=== PATIENT | female | born 1990 | race Caucasian/White ===

== ENCOUNTER 2018-09-03 18:24 | Emergency (ER) | payer MEDICAID, SELFPAY ==
[2018-09-03 18:28] VITALS: BP 109/71; PULSE 84; RESP 18; TEMP 36.7; O2SAT 98
--- NOTE | 2018-09-03 18:54 | W.ED.GENAD ---
Discharge Plan Disposition Patient Disposition: HOME Condition: Fair Discharge Details Chief Complaint: DentalOral Clinical Impression: Fracture of tooth Primary Care Provider: Vane Jacobson ED Provider: Joselin Huitron Home Meds and New Rx's Prescriptions: New penicillin V potassium 500 mg tablet 500 mg PO QID Qty: 28 RF: 0 Discharge Instructions Instructions: Acute Dental Trauma (ED) Additional Instructions: Encourage hydration. Please keep appointment tomorrow with dentist. Do not chew or apply pressure to the left side of your mouth tonight to try to preserve your temporary filling until being evaluated by the dentist. Please take antibiotics as prescribed. You may discuss this further with the dentist tomorrow. If you develop fever/chills, increased pain or other new/worsening symptoms please seek care urgently once again. You may continue with Tylenol and/or Motrin as needed for discomfort. Referrals: Vane Jacobson [Primary Care Provider] - Discharge Data Discharge Date/Time-TO BE ENTERED AT DEPARTURE: 09/03/18 19:01 Medical Decision Making Patient is 28-year-old female presenting today with chief complaint of left upper dental pain. She reports that she was diagnosed with a crack in the afflicted tooth infection 2 years ago by her dentist. She does report that she sees dentist regularly. However, she reports that yesterday while eating a bagel, that her tooth completely fractured. On exam, the #14 tooth is significant for the anterior half being fractured off. This does appear fairly acute. No surrounding erythema, warmth, drainage. Patient is exquisitely tender with palpation of the tooth. She also has some discomfort over the gumline on the buccal aspect. No pain elicited with palpation of the lingual side. No pain with palpation over the sinuses or face. She is afebrile nontoxic appearing. Patient is status post tubal ligation Patient I discussed treatment options. Given the acuity of the fracture and the patient has follow-up with a dentist tomorrow, I feel that applicant of temporary filling is appropriate and will likely help greatly with her discomfort. Also plan to place place the patient on antibiotics. Patient I discussed the procedure along with risks and benefits and expected procedural steps. She was understanding and wished to proceed. Patient was able to use topical benzocaine to help anesthetize the area. The area was then dried well with gauze, retraction was performed by nursing staff. Temporary filling was then placed by myself and allowed to dry. She tolerated this well and felt improved. I did encourage that she continue with Tylenol and/or ibuprofen as needed for discomfort. We discussed that she needs to keep her appointment tomorrow with the dentist so that this could be replaced. We discussed care of the temporary filling. All of her questions and concerns were addressed and she is in agreement this plan. Discussed when to seek care urgently once again HPI General Mode of arrival: ambulatory. Date/Time Provider Initiated Documentation: 09/03/18 18:27. Limitations to Documentation: no limitations. Information obtained by: patient. History of Present Illness 28 year old F presents to the emergency department with the chief complaint of left upper dental pain, described as severe, Quality is described as aching, and is localized to the face and mouth. Patient started experiencing this day(s) (1) and it has been constant. No relieving factors improve symptom(s), No exacerbating factors reported . Patient notes no other symptoms.; denies cough, fever/chills, headaches, nausea/vomiting, rash and weakness. Patient did receive the following treatments prior to arrival, NSAID and cold therapy Related Data Home Medications Medication Instructions Recorded Confirmed penicillin V potassium 500 mg PO QID #28 tab 09/03/18 Previous Rx's Medication Instructions Recorded penicillin V potassium 500 mg PO QID #28 tab 09/03/18 General Stated Complaint: DentalOral MARK: 4 Review of Systems Constitutional Reports as per HPI, Denies chills, Denies fatigue, Denies fever(s), Denies headache(s) and Denies poor appetite Eyes Denies change in vision and Denies irritation ENT Denies dysphagia, Denies headache(s), Denies lip swelling and Denies odynophagia Cardiovascular Reports as per HPI and Denies chest pain Respiratory Reports as per HPI and Denies cough Gastrointestinal Reports as per HPI, Denies dysphagia, Denies nausea, Denies odynophagia and Denies vomiting Integumentary/Breasts Reports as per HPI, Denies erythema, Denies rash and Denies skin pain Neurologic Denies headache(s) Endocrine Denies fatigue Allergic/Immunologic Denies lip swelling PFS Social History Smoking/Tobacco Use Status: Never Exam Const General: cooperative, healthy appearing, comfortable, no acute distress, well developed and well groomed Nutritional Appearance: average body habitus and well nourished Orientation: alert and awake [facility] Head: normal to inspection, normocephalic and atraumatic Ears: hearing grossly normal bilaterally, external ears normal and TM's normal bilaterally General nose exam: external nose normal and nares normal Face and sinus: normal facial exam, sinuses nontender and face symmetric Mouth: oral mucosae normal, lip normal, tongue normal, oropharynx normal, no muffled voice and no trismus Teeth and gingiva: abnormal dentition (Chaitanya has fractured anterior half of the #14 tooth. No surrounding erythema, warmth or drainage. No facial swelling. She does have discomfort with palpation over the buccal side of the gum line. No discharge), caries and other (no swellin gunder tongue) Throat: posterior oropharynx normal, tonsils normal and uvula midline Eyes General: appearance normal, both eyes and all related structures Neck Neck: normal visual inspection, full ROM, no lymphadenopathy, supple and no anterior neck swelling Resp Effort & Inspection: normal respiratory effort, able to speak in complete sentences and no respiratory distress Auscultation: clear to auscultation bilaterally, no rales, no rhonchi and no wheezes Cardio Rate: regular rate Rhythm: regular rhythm Heart Sounds: S1 normal and S2 normal Skin General skin exam: no rashes or lesions noted Trauma: no lacerations or abrasions Neuro General: alert and awake Cognition: normal cognition Speech: speech normal Gait: normal gait Psych Appearance: grossly normal and well kempt Mental Status: mental status grossly normal Speech and Movement: speech and movement normal Course Vital Signs Temperature 36.7 C 09/03/18 18:28 Pulse 84 09/03/18 18:28 Respiratory Rate 18 09/03/18 18:28 Blood Pressure 109/71 09/03/18 18:28 Pulse Oximetry 98 09/03/18 18:28 Temperature 36.7 C 09/03/18 18:28 Temperature Source Temporal Artery Scan 09/03/18 18:28 Pulse 84 09/03/18 18:28 Respiratory Rate 18 09/03/18 18:28 Respiratory Effort 09/03/18 18:30 Blood Pressure 109/71 09/03/18 18:28 Blood Pressure Position Sitting 09/03/18 18:28 Pulse Oximetry 98 09/03/18 18:28 Oxygen Delivery Method Room Air 09/03/18 18:28 Oxygen Flow Rate 0 09/03/18 18:28 Pain Level 8 09/03/18 18:28
[2018-09-03 19:05] VITALS: BP 112/80; PULSE 80; RESP 18; TEMP 36.8; O2SAT 99
--- NOTE | 2018-09-03 19:08 | ED.GENADUL_ITS ---
Discharge Plan Disposition Patient Disposition: HOME Condition: Fair Discharge Details Chief Complaint: DentalOral Clinical Impression: Fracture of tooth Primary Care Provider: Vane Jacobson ED Provider: Joselin Huitron Home Meds and New Rx's Prescriptions: New penicillin V potassium 500 mg tablet 500 mg PO QID Qty: 28 RF: 0 Discharge Instructions Instructions: Acute Dental Trauma (ED) Additional Instructions: Encourage hydration. Please keep appointment tomorrow with dentist. Do not chew or apply pressure to the left side of your mouth tonight to try to preserve your temporary filling until being evaluated by the dentist. Please take antibiotics as prescribed. You may discuss this further with the dentist tomorrow. If you develop fever/chills, increased pain or other new/worsening symptoms please seek care urgently once again. You may continue with Tylenol and /or Motrin as needed for discomfort. Referrals: Vane Jacobson [Primary Care Provider] - Discharge Data Discharge Date/Time-TO BE ENTERED AT DEPARTURE: 09/03/18 19:01 Medical Decision Making Patient is 28-year-old female presenting today with chief complaint of left upper dental pain. She reports that she was diagnosed with a crack in the afflicted tooth infection 2 years ago by her dentist. She does report that she sees dentist regularly. However, she reports that yesterday while eating a bagel, that her tooth completely fractured. On exam, the #14 tooth is significant for the anterior half being fractured off. This does appear fairly acute. No surrounding erythema, warmth, drainage. Patient is exquisitely tender with palpation of the tooth. She also has some discomfort over the gumline on the buccal aspect. No pain elicited with palpation of the lingual side. No pain with palpation over the sinuses or face. She is afebrile nontoxic appearing. Patient is status post tubal ligation Patient I discussed treatment options. Given the acuity of the fracture and the patient has follow-up with a dentist tomorrow, I feel that applicant of temporary filling is appropriate and will likely help greatly with her discomfort. Also plan to place place the patient on antibiotics. Patient I discussed the procedure along with risks and benefits and expected procedural steps. She was understanding and wished to proceed. Patient was able to use topical benzocaine to help anesthetize the area. The area was then dried well with gauze, retraction was performed by nursing staff. Temporary filling was then placed by myself and allowed to dry. She tolerated this well and felt improved. I did encourage that she continue with Tylenol and/or ibuprofen as needed for discomfort. We discussed that she needs to keep her appointment tomorrow with the dentist so that this could be replaced. We discussed care of the temporary filling. All of her questions and concerns were addressed and she is in agreement this plan. Discussed when to seek care urgently once again HPI General Mode of arrival: ambulatory . Date/Time Provider Initiated Documentation: 09/03/18 18:27 . Limitations to Documentation: no limitations . Information obtained by: patient . History of Present Illness 28 year old F presents to the emergency department with the chief complaint of left upper dental pain, described as severe, Quality is described as aching , and is localized to the face and mouth. Patient started experiencing this day(s) (1) and it has been constant. No relieving factors improve symptom(s) , No exacerbating factors reported . Patient notes no other symptoms.; denies cough, fever/chills, headaches, nausea/vomiting, rash and weakness. Patient did receive the following treatments prior to arrival, NSAID and cold therapy Related Data Home Medications Medication Instructions Recorded Confirmed penicillin V potassium 500 mg PO QID #28 tab 09/03/18 Previous Rx's Medication Instructions Recorded penicillin V potassium 500 mg PO QID #28 tab 09/03/18 General Stated Complaint: DentalOral MARK: 4 Review of Systems Constitutional Reports as per HPI, Denies chills, Denies fatigue, Denies fever(s), Denies headache(s) and Denies poor appetite Eyes Denies change in vision and Denies irritation ENT Denies dysphagia, Denies headache(s), Denies lip swelling and Denies odynophagia Cardiovascular Reports as per HPI and Denies chest pain Respiratory Reports as per HPI and Denies cough Gastrointestinal Reports as per HPI, Denies dysphagia, Denies nausea, Denies odynophagia and Denies vomiting Integumentary/Breasts Reports as per HPI, Denies erythema, Denies rash and Denies skin pain Neurologic Denies headache(s) Endocrine Denies fatigue Allergic/Immunologic Denies lip swelling PFS Social History Smoking/Tobacco Use Status: Never Exam Const General: cooperative, healthy appearing, comfortable, no acute distress, well developed and well groomed Nutritional Appearance: average body habitus and well nourished Orientation: alert and awake [facility] Head: normal to inspection, normocephalic and atraumatic Ears: hearing grossly normal bilaterally, external ears normal and TM's normal bilaterally General nose exam: external nose normal and nares normal Face and sinus: normal facial exam, sinuses nontender and face symmetric Mouth: oral mucosae normal, lip normal, tongue normal, oropharynx normal, no muffled voice and no trismus Teeth and gingiva: abnormal dentition (Chaitanya has fractured anterior half of the #14 tooth. No surrounding erythema, warmth or drainage. No facial swelling. She does have discomfort with palpation over the buccal side of the gum line. No discharge), caries and other (no swellin gunder tongue) Throat: posterior oropharynx normal, tonsils normal and uvula midline Eyes General: appearance normal, both eyes and all related structures Neck Neck: normal visual inspection, full ROM, no lymphadenopathy, supple and no anterior neck swelling Resp Effort & Inspection: normal respiratory effort, able to speak in complete sentences and no respiratory distress Auscultation: clear to auscultation bilaterally, no rales, no rhonchi and no wheezes Cardio Rate: regular rate Rhythm: regular rhythm Heart Sounds: S1 normal and S2 normal Skin General skin exam: no rashes or lesions noted Trauma: no lacerations or abrasions Neuro General: alert and awake Cognition: normal cognition Speech: speech normal Gait: normal gait Psych Appearance: grossly normal and well kempt Mental Status: mental status grossly normal Speech and Movement: speech and movement normal Course Vital Signs Temperature 36.7 C 09/03/18 18:28 Pulse 84 09/03/18 18:28 Respiratory Rate 18 09/03/18 18:28 Blood Pressure 109/71 09/03/18 18:28 Pulse Oximetry 98 09/03/18 18:28 Temperature 36.7 C 09/03/18 18:28 Temperature Source Temporal Artery Scan 09/03/18 18:28 Pulse 84 09/03/18 18:28 Respiratory Rate 18 09/03/18 18:28 Respiratory Effort 09/03/18 18:30 Blood Pressure 109/71 09/03/18 18:28 Blood Pressure Position Sitting 09/03/18 18:28 Pulse Oximetry 98 09/03/18 18:28 Oxygen Delivery Method Room Air 09/03/18 18:28 Oxygen Flow Rate 0 09/03/18 18:28 Pain Level 8 09/03/18 18:28
== END 2018-09-03 19:01 | disposition home or self-care (01) ==
LOC: ER 19:05
PROVIDERS: Emergency Provider Physician Assistant
DX: K03.81 Cracked tooth (principal)
CPT/HCPCS: 99283

== ENCOUNTER 2018-12-02 11:49 | Emergency (ER) | payer MEDICAID, SELFPAY ==
[2018-12-02 12:33] VITALS: BP 140/86; PULSE 94; RESP 18; TEMP 36.6; O2SAT 99
--- NOTE | 2018-12-02 13:50 | DI.US_ITS ---
SYMPTOM/DIAGNOSIS: RUQ PAIN ABDOMEN ULTRASOUND: There are no prior comparison exams. The liver is mildly enlarged and shows fatty infiltration. No focal liver lesions or biliary dilatation is seen. The gallbladder is contracted. The patient denies eating or drinking today. No gallstones are identified. The patient was tender while scanning in the right upper quadrant. The tail of the pancreas is obscured by bowel gas. The kidneys, spleen and aorta are unremarkable. IMPRESSION: Contracted gallbladder. Mildly enlarged fatty liver.
[2018-12-02] MEDS: Ondansetron O.D.T. 4 MG TABEF PO (15:00)
[2018-12-02 15:18] LABS: Bilirubin Negative (Negative); Blood Negative (Negative); Clarity Clear; Glucose Negative (Negative); Ketones 15 mg/dL (Negative); Leukocyte Esterase Negative (Negative); Nitrite Negative (Negative); Specific Gravity 1.025 (1.005-1.025); Urobilinogen 0.2 EU/dL (Up TO 0.2)
[2018-12-02 15:20] LABS: Abs Immature Grans 0.01 k/cumm (0.0-0.09); Absolute Basophil Count 0.01 k/cumm (0.0-0.2); Absolute Eosinophil Count 0.04 k/cumm (0.0-0.7); Absolute Lymphocyte Count 1.68 k/cumm (1.2-3.4); Absolute Monocyte Count 0.37 k/cumm (0.11-0.7); Absolute Neutrophil Count 4.27 k/cumm (1.2-6.7); Basophils % 0.2; Eosinophils % 0.6; HCT 39.3 % (36.0-46.0); HGB 12.8 g/dL (12.0-15.5); Immature Grans % 0.2; Lymphocytes % 26.3; Mean Corp. HGB Concentration 32.6 g/dL (32.0-36.0); Mean Corpuscular Hemoglobin 30.8 pg (27.0-33.0); Mean Corpuscular Volume 94.7 fL (80-95); Mean Platelet Volume 10.7 fL (8.0-11.0); Monocytes % 5.8; Neutrophils % 66.9; Platelet Count 215 x1000/uL (130-400); RBC 4.15 m/cumm (4.00-5.20); RBC Distribution Width 13.1 % (11.7-14.6); White Blood Cell Count 6.38 k/cumm (4.4-10.8)
[2018-12-02] MEDS: Ibuprofen 600 MG TAB PO (15:25)
[2018-12-02 15:48] LABS: ALT 150 U/L (12-78); AST 65 U/L (15-37); Albumin 3.7 g/dL (3.4-5.0); Alkaline Phosphatase 58 U/L (46-116); BUN 17 mg/dL (7-18); Bilirubin, Total 0.3 mg/dL (0.2-1.0); CREATININE 0.76 mg/dL (0.55-1.02); Calcium 9.4 mg/dL (8.5-10.1); Chloride 105 mmol/L (98-107); Glucose 79 mg/dL (70-100); Lipase 121 U/L (73-393); Potassium 3.7 mmol/L (3.5-5.1); Sodium 140 mmol/L (136-145); Total Protein 7.8 g/dL (6.4-8.2)
[2018-12-02] MEDS: Normal Saline 1,000 ML 1000 ML IV (16:00)
[2018-12-02] MEDS: MORPHine 10 MG/ML VIAL 4 MG IVP (16:02)
--- NOTE | 2018-12-02 16:07 | ED.GENADUL_ITS ---
Discharge Plan Disposition Patient Disposition: HOME Condition: Good Discharge Details Chief Complaint: Abd Prob Clinical Impression: Abdominal pain, Colicky right upper quadrant pain Reason For Visit: ? gallbladder Primary Care Provider: Vane Jacobson ED Provider: Arcadio Breen Home Meds and New Rx's Prescriptions: New acetaminophen [Mapap Extra Strength] 500 MG tablet 1,000 mg PO Q6H 5 Days Qty: 60 RF: 0 ranitidine HCl [Zantac] 150 MG tablet 150 mg PO BID Qty: 100 RF: 0 ibuprofen [Motrin IB] 200 MG tablet 600 mg PO Q6H 5 Days Qty: 60 RF: 0 pantoprazole [Protonix] 40 mg tablet,delayed release (DR/EC) 40 mg PO BID Qty: 60 RF: 0 ondansetron HCl [Zofran] 4 mg tablet 4 mg PO QID PRN (Reason: nausea and vomiting) Qty: 14 RF: 0 hydrocodone-acetaminophen [[place]] 7.5-325 mg tablet 1 tab PO Q6H Qty: 4 RF: 0 No Action penicillin V potassium 500 mg tablet 500 mg PO QID Qty: 28 RF: 0 Discharge Instructions Instructions: Abdominal Pain (ED) Additional Instructions: Please avoid any fatty foods, greasy foods, dairy products, spicy foods. Please stick with an easy diet of applesauce, water, and crackers. We have scheduled a HIDA scan for you, please follow-up as soon as you are contacted for this. As soon as you are done that contact the surgeon's office, for a prompt follow-up appointment with them for the HIDA scan results. If you notice any worsening of your symptoms, or any new symptoms such as vomiting, diarrhea, fever, chills, shortness of breath, chest pain, numbness, weakness, or fainting , please return immediately to the emergency department for reevaluation. Please follow up with your primary care provider as soon as possible for reassessment and reevaluation. As always, it was a pleasure participating in your medical care today. Referrals: Precious Bear MD [ [facility] STAFF PHYSICIAN] - Discharge Data Discharge Date/Time-TO BE ENTERED AT DEPARTURE: 12/02/18 18:22 Medical Decision Making <Enio Casper NP - Last Filed: 12/05/18 22:29> Patient presenting the emergency department for chief complaint of right upper quadrant pain. She states that this started approximately 5 days ago and has had some intermittent subjective fevers along with it. She does state that pain drastically worsens approximately 20-30 minutes after eating food intake. Plan to check labs and notes physical exam shows positive Enrique sign so plan to do abdominal ultrasound. Pending results patient given Zofran and ibuprofen After review of labs that show some elevation of AST and ALT otherwise normal bilirubin and otherwise nondiagnostic labs and review of ultrasound imaging with radiologist that shows contracted gallbladder with no acute cholecystitis patient was reassessed. Patient having significant worsening of pain and stating sharp anali waves of discomfort in this area. Liter of normal saline and morphine was prescribed and surgery was contacted. Spoke with Dr. Bear whom recommended patient get ketorolac IV along with GI cocktail for possible gastritis otherwise recommended against CT imaging at this time but requested patient follow-up on outpatient basis once pain control is achieved. Pending reassessment of abdomen after pain medication patient was signed out to Dr. Beka Breen. <Arcadio Breen DO - Last Filed: 12/02/18 17:53> The case was signed out to me by my colleague Kalen Casper. On repeat assessment after pain medication the patient still had mild to moderate pain in her right upper quadrant on palpation. I did contact Dr. Bear and discussed the case with her personally, she did come down and assessed the patient with me, we did review the patient's labs and vital signs. On her personal reassessment she does not feel that the patient requires any acute surgical intervention. She does recommend outpatient HIDA scan, as well as diet modification. We will give antacids for home use. With no significant lab abnormalities for her bilirubin, white count, no fever or tachycardia, and no signs of an acute surgical abdomen with surgical review, we will discharge the patient home. I had a long discussion with her regarding red flags which return she understands. I have extensively reviewed the treatment plan and discharge instructions with the patient. I have addressed all patient concerns at this time. The patient was made aware of what symptoms to monitor for that would warrant a return to the emergency department. Discussed the plan with the patient, they demonstrate verbal understanding and agreement with our assessment and plan at this time. ABDOMEN ULTRASOUND: There are no prior comparison exams. The liver is mildly enlarged and shows fatty infiltration. No focal liver lesions or biliary dilatation is seen. The gallbladder is contracted. The patient denies eating or drinking today. No gallstones are identified. The patient was tender while scanning in the right upper quadrant. The tail of the pancreas is obscured by bowel gas. The k idneys, spleen and aorta are unremarkable. IMPRESSION: Contracted gallbladder. Mildly enlarged fatty liver. HPI <Enio Casper NP - Last Filed: 12/05/18 22:29> General Mode of arrival: ambulatory . Date/Time Provider Initiated Documentation: 12/02/18 12:40 . Limitations to Documentation: no limitations . Information obtained by: patient and RN notes reviewed . History of Present Illness 28 year old F presents to the emergency department with the chief complaint of RUQ abd pain, described as moderate, with intensity rated at 7. Quality is described as sharp, and is localized to the abdomen (Right upper quadrant). Patient started experiencing this day(s) (5) and it has been constant. No relieving factors improve symptom(s), Eating worsens symptoms . Patient did receive the following treatments prior to arrival, none Related Data Home Medications Medication Instructions Recorded Confirmed penicillin V potassium 500 mg PO QID #28 tab 09/03/18 acetaminophen [Mapap Extra 1,000 mg PO Q6H 5 Days #60 tab 12/02/18 Strength] hydrocodone-acetaminophen [[place]] 1 tab PO Q6H #4 tab 12/02/18 ibuprofen [Motrin Ib] 600 mg PO Q6H 5 Days #60 tab 12/02/18 ondansetron HCl [Zofran] 4 mg PO QID PRN #14 tab 12/02/18 pantoprazole [Protonix] 40 mg PO BID #60 tab 12/02/18 ranitidine HCl [Zantac] 150 mg PO BID #100 tab 12/02/18 Previous Rx's Medication Instructions Recorded penicillin V potassium 500 mg PO QID #28 tab 09/03/18 acetaminophen [Mapap Extra 1,000 mg PO Q6H 5 Days #60 tab 12/02/18 Strength] hydrocodone-acetaminophen [[place]] 1 tab PO Q6H #4 tab 12/02/18 ibuprofen [Motrin Ib] 600 mg PO Q6H 5 Days #60 tab 12/02/18 ondansetron HCl [Zofran] 4 mg PO QID PRN #14 tab 12/02/18 pantoprazole [Protonix] 40 mg PO BID #60 tab 12/02/18 ranitidine HCl [Zantac] 150 mg PO BID #100 tab 12/02/18 General Stated Complaint: Abd Prob MARK: 3 Review of Systems <Enio Casper NP - Last Filed: 12/05/18 22:29> Constitutional Denies chills and Reports poor appetite Cardiovascular Denies chest pain and Denies dyspnea Respiratory Denies cough and Denies dyspnea Gastrointestinal Reports as per HPI, Reports abdominal pain, Denies melena, Denies change in bowel habits, Denies constipation, Denies diarrhea, Reports nausea and Reports v omiting Genitourinary Denies hematuria, Denies urinary incontinence, Denies urinary hesitancy and Denies urinary urgency Integumentary/Breasts Denies rash PFSH <Enio Casper NP - Last Filed: 12/05/18 22:29> Social History Smoking and Tabacco status: Never alcohol intake: current alcohol intake frequency: a few times a month substance use type: marijuana Exam <Enio Casper NP - Last Filed: 12/05/18 22:29> Const General: cooperative Orientation: alert, awake and oriented x3 Resp Effort & Inspection: normal respiratory effort and able to speak in complete sentences Auscultation: clear to auscultation bilaterally Cardio Rate: regular rate Rhythm: regular rhythm Heart Sounds: S1 normal and S2 normal GI Palpation: soft, no hepatosplenomegaly, not firm, no guarding, no masses, no pulsatile masses, not rigid, no splenomegaly and tender in the RUQ and Enrique's sign positive; not at McBurney's point, psoas sign negative, with no rebound tenderness and Rovsing's sign negative Auscultation: hypoactive bowel sounds Back/Spine/Pelvis Back: no CVA tenderness Neuro General: alert, awake, oriented x3, gait normal and moves all extremities Course <Enio Casper NP - Last Filed: 12/05/18 22:29> Vital Signs Temperature 36.6 C 12/02/18 12:33 Pulse 94 H 12/02/18 12:33 Respiratory Rate 18 12/02/18 12:33 Blood Pressure 140/86 12/02/18 12:33 Pulse Oximetry 99 02/04/19 12:33 Temperature 36.6 C 12/02/18 12:33 Temperature Source Temporal Artery Scan 12/02/18 12:33 Pulse 94 H 12/02/18 12:33 Respiratory Rate 18 12/02/18 12:33 Respiratory Effort 12/02/18 12:36 Blood Pressure 140/86 12/02/18 12:33 Pulse Oximetry 99 12/02/18 12:33 Oxygen Delivery Method Room Air 12/02/18 12:33 Oxygen Flow Rate 0 12/02/18 12:33 End Tidal Co2 5 12/02/18 12:33 Pain Level 7 12/02/18 16:02 Lab/Test Results Lab/Test Results: Laboratory Tests Range/Units 12/02/18 12/02/18 12/02/18 15:07 15:15 15:15 WBC (4.4-10.8) k/cumm 6.38 RBC (4.00-5.20) m/cumm 4.15 Hgb (12.0-15.5) g/dL 12.8 Hct (36.0-46.0) % 39.3 MCV (80-95) fL 94.7 MCH (27.0-33.0) pg 30.8 MCHC (32.0-36.0) g/dL 32.6 RDW (11.7-14.6) % 13.1 Plt Count (130-400) x1000/uL 215 MPV (8.0-11.0) fL 10.7 Immature Gran % 0.2 Neutrophils % 66.9 Lymphocytes % 26.3 Monocytes % 5.8 Eosinophils % 0.6 Basophils % 0.2 Absolute Neutrophils (1.2-6.7) k/cumm 4.27 Absolute Lymphocytes (1.2-3.4) k/cumm 1.68 Absolute Monocytes (0.11-0.7) k/cumm 0.37 Absolute Eosinophils (0.0-0.7) k/cumm 0.04 Absolute Basophils (0.0-0.2) k/cumm 0.01 Sodium (136-145) mmol/L 140 Potassium (3.5-5.1) mmol/L 3.7 Chloride (98-107) mmol/L 105 Carbon Dioxide (21.0-32.0) mmol/L 25.0 Anion Gap (3-11) mmol/L 10.0 BUN (7-18) mg/dL 17 Creatinine (0.55-1.02) mg/dL 0.76 Estimated GFR/1.73 m2 (mL/min/1.73m2) >= 60.00 Glucose (70-100) mg/dL 79 Calcium (8.5-10.1) mg/dL 9.4 Total Bilirubin (0.2-1.0) mg/dL 0.3 AST (15-37) U/L 65 H ALT (12-78) U/L 150 H Alkaline Phosphatase (46-116) U/L 58 Total Protein (6.4-8.2) g/dL 7.8 Albumin (3.4-5.0) g/dL 3.7 Lipase (73-393) U/L 121 Urine Color (Yellow) Yellow Urine Clarity Clear Urine pH (5-8) 6.0 Ur Specific [place] (1.005-1.025) 1.025 Urine Protein (Negative) mg/dL Negative Urine Ketones (Negative) mg/dL 15 H Urine Blood (Negative) Negative Urine Nitrite (Negative) Negative Urine Bilirubin (Negative) Negative Urine Urobilinogen (Up TO 0.2) EU/dL 0.2 Ur Leukocyte Esterase (Negative) Negative Urine Glucose (Negative) mg/dL Negative POC- Test(urine) Negative
[2018-12-02] MEDS: Ketorolac 30 MG/ML VIAL IVP (16:23)
--- NOTE | 2018-12-02 17:37 | SCONE_ITS ---
Date of service: 12/02/18 Time of Service: 17:33 Assessment and Plan (1) Abdominal pain: Current visit: Yes Status: Acute A\\ Abdominal pain, RUQ and right flank. No rebound or guarding. When distracted her pain is less. She is not tachycardic or hypertensive. US showed a contracted Gallbladder. NO pericholecystic fluid, CBD normal. They did see a fatty liver which is most likely why her AST and ALT are slightly elevated. P\\ HIDA scan as outpatient Omeprazole daily in case that there is some gastritis Follow up with me in the office with HIDA scan results Low fat, not spicy foods. Recommend bland foods. Tylenol and ibuprofen for pain. Make sure to take ibuprofen with food. Qualifiers: Abdominal location: upper abdomen, unspecified Qualified Code(s): R10.10 - Upper abdominal pain, unspecified History of Present Illness Chief Complaint: Abdominal pain and nausea Narrative: Ms Castillo is a 28 year old female who has been having upper abdominal pain since 11/28. She has had some nausea, no vomiting. No fevers. She states that food makes it worse. But she has constant pain. She denies any diarrhea. She usually is more on the constipated side and has to take Miralax once in a while. Her Abdominal US showed a fatty liver, and a contracted Gallbladder with out stones or sludge. CBC was normal. CMP revealed slight increase in her ALT and AST. Alk phos and bilirubin are normal as is her lipase. Urine showed ketones otherwise no abnormalities. Patient was given Toradol, viscous lidocaine and morphine all at the same time. One of these made her feel better. Consults Consult date: 12/02/18 Requesting physician: Arcadio Breen Review of Systems Constitutional Denies body ache(s), Denies fever(s), Denies headache(s), Denies night sweats and Denies weight loss ENT Denies dizziness and Denies headache(s) Cardiovascular Denies chest pain, Denies chest pain at rest, Denies rapid heart rate, Denies palpitations, Denies dyspnea and Denies dyspnea on exertion Respiratory Denies chest congestion, Denies cough, Denies dyspnea and Denies dyspnea on exertion Gastrointestinal Reports as per HPI Genitourinary Reports system reviewed and no additional complaints, except as docu Musculoskeletal Reports back pain (chronic per patient) Neurologic Denies dizziness and Denies headache(s) Endocrine Denies cold intolerance, Denies heat intolerance and Denies palpitations PFSH Social History Smoking/Tobacco Use Status: Never alcohol intake: current alcohol intake frequency: a few times a month substance use type: marijuana Exam Const General: cooperative, healthy appearing, comfortable and no acute distress Nutritional Appearance: obese Resp Effort & Inspection: normal respiratory effort Auscultation: clear to auscultation bilaterally Cardio Rate: regular rate Rhythm: regular rhythm Heart Sounds: no gallops and no murmurs GI Inspection: normal to inspection Palpation: soft, no hepatosplenomegaly and tender in the epigastrum, in the RUQ and other (Right flank) Auscultation: normal bowel sounds Results Last Vital Signs Temp 97.9 F 12/02/18 12:33 Pulse 94 H 12/02/18 12:33 Resp 18 12/02/18 12:33 BP 140/86 12/02/18 12:33 Pulse Ox 99 12/02/18 12:33 Labs : 12/02/18 15:15 12/02/18 15:15 Laboratory Results - last 24 hr 12/02/18 12/02/18 12/02/18 15:07 15:15 15:15 WBC 6.38 RBC 4.15 Hgb 12.8 Hct 39.3 MCV 94.7 MCH 30.8 MCHC 32.6 RDW 13.1 Plt Count 215 MPV 10.7 Immature Gran % 0.2 Neutrophils % 66.9 Lymphocytes % 26.3 Monocytes % 5.8 Eosinophils % 0.6 Basophils % 0.2 Absolute Neutrophils 4.27 Absolute Lymphocytes 1.68 Absolute Monocytes 0.37 Absolute Eosinophils 0.04 Absolute Basophils 0.01 Sodium 140 Potassium 3.7 Chloride 105 Carbon Dioxide 25.0 Anion Gap 10.0 BUN 17 Creatinine 0.76 Estimated GFR/1.73 m2 >= 60.00 Glucose 79 Calcium 9.4 Total Bilirubin 0.3 AST 65 H ALT 150 H Alkaline Phosphatase 58 Total Protein 7.8 Albumin 3.7 Lipase 121 Urine Color Yellow Urine Clarity Clear Urine pH 6.0 Ur Specific [place] 1.025 Urine Protein Negative Urine Ketones 15 H Urine Blood Negative Urine Nitrite Negative Urine Bilirubin Negative Urine Urobilinogen 0.2 Ur Leukocyte Esterase Negative Urine Glucose Negative
[2018-12-02 18:14] VITALS: BP 130/79; PULSE 72; RESP 18; TEMP 36.8; O2SAT 98
[2018-12-02 18:23] VITALS: BP 130/79; PULSE 72; RESP 18; TEMP 36.8; O2SAT 98
--- NOTE | 2018-12-03 07:56 | PDOC.ERCMPRO ---
Care Management Progress Note 12/03-Dr. Breen requested assistance with a general surgery f/u after HIDA Scan (referral has been sent to xray). Dr. Bear consulted in Emergency Department. Referral faxed to general surgery this am.
== END 2018-12-02 18:22 | disposition home or self-care (01) ==
PROVIDERS: Nurse Practitioner Family; Emergency Provider Student in an Organized Health Care Education/Training Program
DX: R10.11 Right upper quadrant pain (principal)
CPT/HCPCS: 36415; 80053; 81025; 83690; 96361; 96374; 96375; 99253; 99284; 76700; 81003; 85025; J1885; J2270

== ENCOUNTER 2018-12-05 09:33 | Outpatient (CLI) | payer MEDICAID, SELFPAY ==
--- NOTE | 2018-12-05 10:00 | DI.NM_ITS ---
SYMPTOMS/DIAGNOSIS: RUQ PAIN, ? GALLBLADDER PATHOLOGY HEPATOBILIARY SCAN: Hepatobiliary scan was performed according to the usual protocol with intravenous infusion of 4.7 millicuries of Technetium 99 labeled Mebrofenin. There is prompt homogeneous hepatic uptake. There is prompt uptake in the gallbladder, bile ducts and small intestine. CONCLUSION: Negative hepatobiliary scan.
== END 2018-12-05 09:53 ==
PROVIDERS: Visit Provider Student in an Organized Health Care Education/Training Program
DX: R10.11 Right upper quadrant pain (principal)
CPT/HCPCS: 78227

== ENCOUNTER 2019-01-08 09:13 | Emergency (ER) | payer MEDICAID, SELFPAY ==
[2019-01-08] VITALS (33 sets, daily range): BP systolic 118–143; BP diastolic 68–98; PULSE 58–106; RESP 10–38; TEMP 36.6–37; O2SAT 95–100
[2019-01-08] MEDS: FAMOTIDINE 20 MG/50 ML BAG 200 MG (09:46)
[2019-01-08] MEDS: methylPREDNISolone SUCC 125 MG VIAL (09:46)
[2019-01-08] MEDS: Albuterol 2.5 MG/3 ML INH SOLN VIAL (09:46)
[2019-01-08] MEDS: diphenhydrAMINE 50 MG/ML VIAL (09:47)
--- NOTE | 2019-01-08 09:54 | W.ED.GENAD ---
Discharge Plan Disposition Patient Disposition: HOME Condition: Stable Discharge Details Chief Complaint: Allergic Clinical Impression: Rash, Allergic reaction Primary Care Provider: Vane Jacobson ED Provider: Tashia Alonzo Home Meds and New Rx's Prescriptions: New prednisone 20 mg tablet 40 mg PO DAILY Qty: 8 RF: 0 epinephrine 0.3 mg/0.3 mL syringe 0.3 mg IM ONCE Qty: 2 RF: 0 Continued acetaminophen 500 mg Capsule 500 mg PO PRN PRNRF: 0 Discontinued ranitidine HCl [Zantac] 150 MG tablet 150 mg PO BID Qty: 100 RF: 0 pantoprazole [Protonix] 40 mg tablet,delayed release (DR/EC) 40 mg PO BID Qty: 60 RF: 0 ondansetron HCl [Zofran] 4 mg tablet 4 mg PO QID PRN (Reason: nausea and vomiting) Qty: 14 RF: 0 Discharge Instructions Instructions: Prednisone (By mouth), Epinephrine (Injection), Acute Rash (ED), General Allergic Reaction (ED) Additional Instructions: Please return immediately to the emergency department if you develop any new or worsening symptoms or if you become otherwise concerned. It is extremely important that you make an appointment to be seen as soon as possible by an analytics specialist and also by your primary care doctor in follow-up for this visit. Referrals: Vane Jacobson [Primary Care Provider] - Discharge Data Discharge Date/Time-TO BE ENTERED AT DEPARTURE: 01/08/19 12:38 Medical Decision Making Teresa Estrella is a 28 y/o woman with history of WPW, GERD, chronic hypoglycemia who presents to the emergency department with upper extremity redness, itching, and swelling along with mild shortness of breath began 20-30 minutes prior to arrival with no known inciting factors. On exam patient is well and nontoxic appearing but mildly anxious. Her work of breathing is normal and lungs are clear. Exam of the oropharynx is normal. No acute impending airway compromise. Concern for possible allergic reaction. Exam/history is not consistent with infectious process at this time. Plan for IV fluid hydration, IV Benadryl, IV Pepcid, IV Solu-Medrol, albuterol. Will hold epi use for any worsening symptoms. Plan for telemetry. Patient had quick improvement in her symptoms after Benadryl and other treatments. On reevaluation patient reports complete resolution of all of her symptoms. At this time, the only exposure that she can think of that she had this morning was to her laundry, which included her boyfriend's clothing which may have had different substances on it from his work. Plan for patient to have her boyfriend rewash all laundry that may be contaminated. Plan for steroid burst, and Rx EpiPen. Patient reports that she has never had WPW issues or tachycardia during exertion, so at this time benefit of EpiPen for mod-severe allergic reaction outweighs risk. Encouraged patient to see analytics specialist in follow-up as soon as possible, given unknown antigen for presumed allergic reaction today. I had a lengthy discussion with the patient regarding EpiPen precautions and use, return to emergency department precautions, home care, and importance of outpatient follow-up with her analytics specialist and PCP. Patient verbalizes understanding of the plan and is amenable. All questions were answered. Medical Records Medical records reviewed: Yes I reviewed the patient's medical records. ECG Data Attestation: I personally reviewed and interpreted this ECG (s) as follows: Interpretation: EKG obtained from triage. Sinus rhythm at 77 with normal axis, T wave inversion V1 V2 consistent with persistent juvenile T waves, no acute ischemic process HPI General Mode of arrival: ambulatory. Date/Time Provider Initiated Documentation: 01/08/19 09:54. Limitations to Documentation: no limitations. Information obtained by: patient. HPI Narrative: Teresa Estrella is a 28-year-old woman with history of GERD, WPW, chronic hypoglycemia presenting to the emergency department with rash, swelling. Patient reports that 20-30 minutes prior to arrival, she was getting ready for work in her bedroom when she noticed that her arms seemed itchy and felt tight. She noticed that her arms were red, and she felt mildly short of breath. Patient reports that she took care of her animals which include cats, chickens and dogs as usual this morning. She has not eaten breakfast or had any other ingestion, exposure. Patient reports that she has vomiting with codeine but has no other known allergies. Never had a similar reaction in the past. Patient reports that she was previously in her usual state of health, no recent illnesses, has been eating and drinking as usual. No [id number] medications recently. Related Data Home Medications Medication Instructions Recorded Confirmed acetaminophen 500 mg PO PRN PRN 12/12/18 epinephrine 0.3 mg IM ONCE #2 each 01/08/19 prednisone 40 mg PO DAILY #8 tab 01/08/19 Previous Rx's Medication Instructions Recorded epinephrine 0.3 mg IM ONCE #2 each 01/08/19 prednisone 40 mg PO DAILY #8 tab 01/08/19 Allergies Allergy/AdvReac Type Severity Reaction Status Date / Time codeine AdvReac Intermediate vomitting Verified 12/06/18 10:58 General Stated Complaint: Allergic MARK: 2 Review of Systems Review of Systems Constitutional: denies fevers Eyes: denies eye pain ENT: denies facial pain, dental pain, sore throat Cardiovascular: denies chest pain Respiratory: denies cough, reports mild shortness of breath GI: denies abdominal pain, vomiting, diarrhea : denies flank pain MSK: denies back pain, neck pain, arthralgias, myalgias Skin: Reports rash, swelling of the arms Neuro: denies headaches, numbness, weakness PFSH Medical History Upper abdominal pain of unknown etiology (Acute) Hypoglycemia (Chronic) Social History Smoking/Tobacco Use Status: Current every day Alcohol Intake: current Alcohol Intake frequency: a few times a month Drug use: Never Substance use type: marijuana Household members: family Do you feel safe in your relationship?: Yes Exam Narrative Exam Narrative: Constitutional: well and [id number], pleasant but somewhat anxious this, conversing normally HENT: head atraumatic/normocephalic/normal inspection, mucous membranes moist, no edema of the oropharynx or lips Eyes: conjunctiva normal, sclera normal, pupils 3mm b/l Neck: no stridor, normal ROM, trachea midline Chest: normal inspection Resp: normal work of breathing, LCTAB Cardio: normal rate, normal rhythm, no murmur appreciated GI: abdomen soft, non-tender, non-distended Back: normal inspection, no rash Skin: warm, dry, normal color, uniform erythema bilateral arms from hands shoulders with mild nonpitting edema bilateral upper extremities and same distribution as color change Neuro: alert, not altered, grossly non-focal, normal tone Psych: normal mood, normal affect, normal behavior Course Vital Signs Temperature 36.6 C 01/08/19 09:38 Pulse 85 01/08/19 09:38 Respiratory Rate 16 01/08/19 09:38 Blood Pressure 137/98 H 01/08/19 09:38 Pulse Oximetry 100 01/08/19 09:38 Temperature 36.6 C 01/08/19 09:38 Temperature Source Skin 01/08/19 09:38 Pulse 85 01/08/19 09:38 Respiratory Rate 16 01/08/19 09:38 Respiratory Effort 01/08/19 09:42 Blood Pressure 137/98 H 01/08/19 09:38 Blood Pressure Position Sitting 01/08/19 09:38 Pulse Oximetry 100 01/08/19 09:38 Oxygen Delivery Method Room Air 01/08/19 09:38 Oxygen Flow Rate 0 01/08/19 09:38
--- NOTE | 2019-01-08 09:58 | ED.GENADUL_ITS ---
Discharge Plan Disposition Patient Disposition: HOME Condition: Stable Discharge Details Chief Complaint: Allergic Clinical Impression: Rash, Allergic reaction Primary Care Provider: Vane Jacobson ED Provider: Tashia Alonzo Home Meds and New Rx's Prescriptions: New prednisone 20 mg tablet 40 mg PO DAILY Qty: 8 RF: 0 epinephrine 0.3 mg/0.3 mL syringe 0.3 mg IM ONCE Qty: 2 RF: 0 Continued acetaminophen 500 mg Capsule 500 mg PO PRN PRNRF: 0 Discontinued ranitidine HCl [Zantac] 150 MG tablet 150 mg PO BID Qty: 100 RF: 0 pantoprazole [Protonix] 40 mg tablet,delayed release (DR/EC) 40 mg PO BID Qty: 60 RF: 0 ondansetron HCl [Zofran] 4 mg tablet 4 mg PO QID PRN (Reason: nausea and vomiting) Qty: 14 RF: 0 Discharge Instructions Instructions: Prednisone (By mouth), Epinephrine (Injection), Acute Rash (ED), General Allergic Reaction (ED) Additional Instructions: Please return immediately to the emergency department if you develop any new or worsening symptoms or if you become otherwise concerned. It is extremely important that you make an appointment to be seen as soon as possible by an correspondence representative and also by your primary care doctor in follow-up for this visit. Referrals: Vane Jacobson [Primary Care Provider] - Discharge Data Discharge Date/Time-TO BE ENTERED AT DEPARTURE: 01/08/19 12:38 Medical Decision Making Teresa Estrella is a 28 y/o woman with history of WPW, GERD, chronic hypoglycemia who presents to the emergency department with upper extremity redness, itching, and swelling along with mild shortness of breath began 20-30 minutes prior to arrival with no known inciting factors. On exam patient is well and nontoxic appearing but mildly anxious. Her work of breathing is normal and lungs are clear. Exam of the oropharynx is normal. No acute impending airway compromise. Concern for possible allergic reaction. Exam/history is not consistent with infectious process at this time. Plan for IV fluid hydration, IV Benadryl, IV Pepcid, IV Solu-Medrol, albuterol. Will hold epi use for any worsening symptoms. Plan for telemetry. Patient had quick improvement in her symptoms after Benadryl and other treatments. On reevaluation patient reports complete resolution of all of her symptoms. At this time, the only exposure that she can think of that she had this morning was to her laundry, which included her boyfriend's clothing which may have had different substances on it from his work. Plan for patient to have her boyfriend rewash all laundry that may be contaminated. Plan for steroid burst, and Rx EpiPen. Patient reports that she has never had WPW issues or tachycardia during exertion, so at this time benefit of EpiPen for mod-severe allergic reaction outweighs risk. Encouraged patient to see correspondence representative in follow-up as soon as possible, given unknown antigen for presumed allergic reaction today. I had a lengthy discussion with the patient regarding EpiPen precautions and use, return to emergency department precautions, home care, and importance of outpatient follow-up with her correspondence representative and PCP. Patient verbal izes understanding of the plan and is amenable. All questions were answered. Medical Records Medical records reviewed: Yes I reviewed the patient's medical records. ECG Data Attestation: I personally reviewed and interpreted this ECG (s) as follows: Interpretation: EKG obtained from triage. Sinus rhythm at 77 with normal axis, T wave inversion V1 V2 consistent with persistent juvenile T waves, no acute ischemic process HPI General Mode of arrival: ambulatory . Date/Time Provider Initiated Documentation: 01/08/19 09:54 . Limitations to Documentation: no limitations . Information obtained by: patient . HPI Narrative: Teresa Estrella is a 28-year-old woman with history of GERD, WPW, chronic hypoglycemia presenting to the emergency department with rash, swelling. Patient reports that 20-30 minutes prior to arrival, she was getting ready for work in her bedroom when she noticed that her arms seemed itchy and felt tight. She noticed that her arms were red, and she felt mildly short of breath. Patient reports that she took care of her animals which include cats, chickens and dogs as usual this morning. She has not eaten breakfast or had any other ingestion, exposure. Patient reports that she has vomiting with codeine but has no other known allergies. Never had a similar reaction in the past. Patient reports that she was previously in her usual state of health, no recent illnesses, has been eating and drinking as usual. No [id number] medications recently. Related Data Home Medications Medication Instructions Recorded Confirmed acetaminophen 500 mg PO PRN PRN 12/12/18 epinephrine 0.3 mg IM ONCE #2 each 01/08/19 prednisone 40 mg PO DAILY #8 tab 01/08/19 Previous Rx's Medication Instructions Recorded epinephrine 0.3 mg IM ONCE #2 each 01/08/19 prednisone 40 mg PO DAILY #8 tab 01/08/19 Allergies Allergy/AdvReac Type Severity Reaction Status Date / Time codeine AdvReac Intermediate vomitting Verified 12/06/18 10:58 General Stated Complaint: Allergic MARK: 2 Review of Systems Review of Systems Constitutional: denies fevers Eyes: denies eye pain ENT: denies facial pain, dental pain, sore throat Cardiovascular: denies chest pain Respiratory: denies cough, reports mild shortness of breath GI: denies abdominal pain, vomiting, diarrhea : denies flank pain MSK: denies back pain, neck pain, arthralgias, myalgias Skin: Reports rash, swelling of the arms Neuro: denies headaches, numbness, weakness PFSH Medical History Upper abdominal pain of unknown etiology (Acute) Hypoglycemia (Chronic) Social History Smoking/Tobacco Use Status: Current every day Alcohol Intake: current Alcohol Intake frequency: a few times a month Drug use: Never Substance use type: marijuana Household members: family Do you feel safe in your relationship?: Yes Exam Narrative Exam Narrative: Constitutional: well and [id number], pleasant but somewhat anxious this, conversing normally HENT: head atraumatic/normocephalic/normal inspection, mucous membranes moist, no edema of the oropharynx or lips Eyes: conjunctiva normal, sclera normal, pupils 3mm b/l Neck: no stridor, normal ROM, trachea midline Chest: normal inspection Resp: normal work of breathing, LCTAB Cardio: normal rate, normal rhythm, no murmur appreciated GI: abdomen soft, non-tender, non-distended Back: normal inspection, no rash Skin: warm, dry, normal color, uniform erythema bilateral arms from hands shoulders with mild nonpitting edema bilateral upper extremities and same distribution as color change Neuro: alert, not altered, grossly non-focal, normal tone Psych: normal mood, normal affect, normal behavior Course Vital Signs Temperature 36.6 C 01/08/19 09:38 Pulse 85 01/08/19 09:38 Respiratory Rate 16 01/08/19 09:38 Blood Pressure 137/98 H 01/08/19 09:38 Pulse Oximetry 100 01/08/19 09:38 Temperature 36.6 C 01/08/19 09:38 Temperature Source Skin 01/08/19 09:38 Pulse 85 01/08/19 09:38 Respiratory Rate 16 01/08/19 09:38 Respiratory Effort 01/08/19 09:42 Blood Pressure 137/98 H 01/08/19 09:38 Blood Pressure Position Sitting 01/08/19 09:38 Pulse Oximetry 100 01/08/19 09:38 Oxygen Delivery Method Room Air 01/08/19 09:38 Oxygen Flow Rate 0 01/08/19 09:38
== END 2019-01-08 12:38 | disposition home or self-care (01) ==
PROVIDERS: Emergency Provider Student in an Organized Health Care Education/Training Program
DX: T78.40XA Allergy, unspecified, initial encounter (principal)
CPT/HCPCS: 93005; 94640; 99284; 93010; J1200; J2930; J7613

== ENCOUNTER 2019-04-27 12:55 | Emergency (ER) | payer MEDICAID, SELFPAY ==
[2019-04-27 12:59] VITALS: BP 140/80; RESP 18; TEMP 36.8; O2SAT 99
--- NOTE | 2019-04-27 13:18 | W.ED.GENAD ---
Discharge Plan Disposition Patient Disposition: HOME Condition: Improving Discharge Details Chief Complaint: DentalOral Clinical Impression: Odontalgia Primary Care Provider: Vane Jacobson ED Provider: Franklyn Marie Home Meds and New Rx's Prescriptions: New penicillin V potassium 500 mg tablet 500 mg PO TID 10 Days Qty: 30 RF: 0 Continued acetaminophen 500 mg Capsule 500 mg PO PRN PRNRF: 0 epinephrine 0.3 mg/0.3 mL syringe 0.3 mg IM ONCE Qty: 2 RF: 0 Discharge Instructions Instructions: Toothache (ED) Additional Instructions: Please call dentistry tomorrow for a follow-up appointment.. Take penicillin as prescribed, begin today. Please use ibuprofen 800 mg, with food every 8 hours as needed for pain. May also use Tylenol 975 mg every 6 hours. You had a dental block performed which should give 6 to 8 hours of pain relief. Medical Decision Making 28-year-old female with broken cusp of right lower premolar. Odontalgia associated with this. No evidence of fluctuance on either the buccal or lingual aspect on exam. Patient consented for regional anesthesia and inferior alveolar block performed with a 50-50 mix of lidocaine and Marcaine. Temporary filling placed over a broken cusp. Patient was placed on penicillin. She is to follow-up with dentistry as previously planned HPI General Mode of arrival: ambulatory. Date/Time Provider Initiated Documentation: 04/27/19 13:01. Limitations to Documentation: no limitations. Information obtained by: patient. History of Present Illness 28 year old F presents to the emergency department with the chief complaint of Right lower tooth pain, described as moderate, Quality is described as dull and constant, and is localized to the face and mouth. Patient reports no radiation. Patient started experiencing this day(s) and it has been constant. No relieving factors improve symptom(s), Other factors that worsen symptoms (Eating) . Patient notes no other symptoms.. Patient did receive the following treatments prior to arrival, none Related Data Home Medications Medication Instructions Recorded Confirmed acetaminophen 500 mg PO PRN PRN 12/12/18 04/27/19 epinephrine 0.3 mg IM ONCE #2 each 01/08/19 04/27/19 penicillin V potassium 500 mg PO TID 10 Days #30 tab 04/27/19 Previous Rx's Medication Instructions Recorded epinephrine 0.3 mg IM ONCE #2 each 01/08/19 penicillin V potassium 500 mg PO TID 10 Days #30 tab 04/27/19 Allergies Allergy/AdvReac Type Severity Reaction Status Date / Time codeine AdvReac Intermediate vomitting Verified 04/27/19 13:03 General Stated Complaint: DentalOral MARK: 4 Review of Systems Review of Systems No drooling, change to voice, no fever. 6 systems reviewed and otherwise negative [facility] Medical History Upper abdominal pain of unknown etiology (Acute) Hypoglycemia (Chronic) Social History Smoking/Tobacco Use Status: Current every day Alcohol Intake: current Alcohol Intake frequency: a few times a month Drug use: Never Substance use type: marijuana Household members: family Do you feel safe in your relationship?: Yes Exam Narrative Exam Narrative: GEN: awake, alert, oriented 3. Pleasant, well groomed, interactive. HEAD: Normocephalic, atraumatic ENT: Mucous membranes moist, oropharynx with open posterior cusp of right mandibular premolar, approximately tooth #29. External ear exam unremarkable EYES: PERRL, EOMI NECK: Full ROM, no ZULEIMA, no menigismus CHEST/RESP: Nontender, clear to auscultation bilateral, no wheeze/rhonchi/rales CARDIOVASCULAR: RRR, no murmur, rub earle. 2+ Rad pulse bilateral Neuro: Grossly normal neurologic exam, conversant, interactive. Psych: Speech fluent, thoughts congruent, affect normal Course Vital Signs Temperature 36.8 C 04/27/19 12:59 Respiratory Rate 18 04/27/19 12:59 Blood Pressure 140/80 04/27/19 12:59 Pulse Oximetry 99 04/27/19 12:59 Temperature 36.8 C 04/27/19 12:59 Temperature Source Temporal Artery Scan 04/27/19 12:59 Respiratory Rate 18 04/27/19 12:59 Respiratory Effort 04/27/19 13:15 Blood Pressure 140/80 04/27/19 12:59 Blood Pressure Position Sitting 04/27/19 12:59 Pulse Oximetry 99 04/27/19 12:59 Oxygen Delivery Method Room Air 04/27/19 12:59 Oxygen Flow Rate 0 04/27/19 12:59 Pain Level 6 04/27/19 12:59
--- NOTE | 2019-04-27 13:21 | ED.GENADUL_ITS ---
Discharge Plan Disposition Patient Disposition: HOME Condition: Improving Discharge Details Chief Complaint: DentalOral Clinical Impression: Odontalgia Primary Care Provider: Vane Jacobson ED Provider: Franklyn Marie Home Meds and New Rx's Prescriptions: New penicillin V potassium 500 mg tablet 500 mg PO TID 10 Days Qty: 30 RF: 0 Continued acetaminophen 500 mg Capsule 500 mg PO PRN PRNRF: 0 epinephrine 0.3 mg/0.3 mL syringe 0.3 mg IM ONCE Qty: 2 RF: 0 Discharge Instructions Instructions: Toothache (ED) Additional Instructions: Please call dentistry tomorrow for a follow-up appointment.. Take penicillin as prescribed, begin today. Please use ibuprofen 800 mg, with food every 8 hours as needed for pain. May also use Tylenol 975 mg every 6 hours. You had a dental block performed which should give 6 to 8 hours of pain relief. Medical Decision Making 28-year-old female with broken cusp of right lower premolar. Odontalgia associated with this. No evidence of fluctuance on either the buccal or lingual aspect on exam. Patient consented for regional anesthesia and inferior alveolar block performed with a 50-50 mix of lidocaine and Marcaine. Temporary filling placed over a broken cusp. Patient was placed on penicillin. She is to follow-up with dentistry as previously planned HPI General Mode of arrival: ambulatory . Date/Time Provider Initiated Documentation: 04/27/19 13:01 . Limitations to Documentation: no limitations . Information obtained by: patient . History of Present Illness 28 year old F presents to the emergency department with the chief complaint of Right lower tooth pain, described as moderate, Quality is described as dull and constant, and is localized to the face and mouth. Patient reports no radiation. Patient started experiencing this day(s) and it has been consta nt. No relieving factors improve symptom(s), Other factors that worsen symptoms (Eating) . Patient notes no other symptoms.. Patient did receive the following treatments prior to arrival, none Related Data Home Medications Medication Instructions Recorded Confirmed acetaminophen 500 mg PO PRN PRN 12/12/18 04/27/19 epinephrine 0.3 mg IM ONCE #2 each 01/08/19 04/27/19 penicillin V potassium 500 mg PO TID 10 Days #30 tab 04/27/19 Previous Rx's Medication Instructions Recorded epinephrine 0.3 mg IM ONCE #2 each 03/13/19 penicillin V potassium 500 mg PO TID 10 Days #30 tab 04/27/19 Allergies Allergy/AdvReac Type Severity Reaction Status Date / Time codeine AdvReac Intermediate vomitting Verified 04/27/19 13:03 General Stated Complaint: DentalOral MARK: 4 Review of Systems Review of Systems No drooling, change to voice, no fever. 6 systems reviewed and otherwise negative [facility] Medical History Upper abdominal pain of unknown etiology (Acute) Hypoglycemia (Chronic) Social History Smoking/Tobacco Use Status: Current every day Alcohol Intake: current Alcohol Intake frequency: a few times a month Drug use: Never Substance use type: marijuana Household members: family Do you feel safe in your relationship?: Yes Exam Narrative Exam Narrative: GEN: awake, alert, oriented 3. Pleasant, well groomed, interactive. HEAD: Normocephalic, atraumatic ENT: Mucous membranes moist, oropharynx with open posterior cusp of right mandibular premolar, approximately tooth #29. External ear exam unremarkable EYES: PERRL, EOMI NECK: Full ROM, no ZULEIMA, no menigismus CHEST/RESP: Nontender, clear to auscultation bilateral, no wheeze/rhonchi/rales CARDIOVASCULAR: RRR, no murmur, rub earle. 2+ Rad pulse bilateral Neuro: Grossly normal neurologic exam, conversant, interactive. Psych: Speech fluent, thoughts congruent, affect normal Course Vital Signs Temperature 36.8 C 04/27/19 12:59 Respiratory Rate 18 04/27/19 12:59 Blood Pressure 140/80 04/27/19 12:59 Pulse Oximetry 99 04/27/19 12:59 Temperature 36.8 C 04/27/19 12:59 Temperature Source Temporal Artery Scan 04/27/19 12:59 Respiratory Rate 18 04/27/19 12:59 Respiratory Effort 04/27/19 13:15 Blood Pressure 140/80 04/27/19 12:59 Blood Pressure Position Sitting 04/27/19 12:59 Pulse Oximetry 99 04/27/19 12:59 Oxygen Delivery Method Room Air 04/27/19 12:59 Oxygen Flow Rate 0 04/27/19 12:59 Pain Level 6 04/27/19 12:59
== END 2019-04-27 13:31 | disposition home or self-care (01) ==
PROVIDERS: Emergency Provider Emergency Medicine
DX: R68.84 Jaw pain (principal)
CPT/HCPCS: 64402

== ENCOUNTER 2019-05-01 11:11 | Emergency (ER) | payer MEDICAID, SELFPAY ==
[2019-05-01 11:15] VITALS: PULSE 90; RESP 20; TEMP 36.6; O2SAT 100
[2019-05-01 11:22] VITALS: BP 137/85
--- NOTE | 2019-05-01 11:26 | W.ED.GENAD ---
Discharge Plan Disposition Patient Disposition: HOME Condition: Fair Discharge Details Chief Complaint: Orthopedic Clinical Impression: Left wrist sprain Primary Care Provider: Vane Jacobson ED Provider: Joselin Huitron Home Meds and New Rx's Prescriptions: Continued acetaminophen 500 mg Capsule 500 mg PO PRN PRNRF: 0 penicillin V potassium 500 mg tablet 500 mg PO TID 10 Days Qty: 30 RF: 0 epinephrine 0.3 mg/0.3 mL syringe 0.3 mg IM ONCE Qty: 2 RF: 0 Discharge Instructions Instructions: Wrist Sprain (ED) Additional Instructions: Encourage rest, ice, elevation. Tylenol and/or ibuprofen as needed for discomfort. Please follow-up with primary care in the next 1 week for reevaluation. As discussed, I am concerned about your scaphoid bone. Please continue to wear the brace provided until reevaluated. If you develop new or worsening symptoms seek care urgently once again peer Referrals: Vane Jacobson [Primary Care Provider] - Medical Decision Making Patient 28-year-old [id number] female presenting today with chief complaint of left hand and wrist pain. She reports that part few hours prior to arrival, her boyfriend was falling and she attempted to catch him. In her attempt, her hand got caught between his weight in a metal barrel that was behind him. Is endorsing pain over the radial side of the wrist and the second metacarpal. She is having pain over the anatomical snuffbox with palpation as well as axial thumb loading. Patient is a s/p tubal ligation. Will obtain XR to evaluate for possible fx. X-rays reviewed by myself with no acute process noted. Despite this, I am concerned for possible scaphoid injury and plan to treat patient in thumb spica. Discussed this finding with the patient as well as the risks associated with scaphoid injury. Encourage rest, ice, elevation. Tylenol and ibuprofen as needed for discomfort. Advised that she keep a thumb spica on until evaluated by primary care in the next 2 weeks. We discussed new/worsening symptoms when to seek care urgently once again. All of her questions and concerns were addressed and she is agreement this plan X-ray reviewed by radiologist and agree with with my initial read, no acute fracture or dislocation noted. HPI General Mode of arrival: ambulatory. Date/Time Provider Initiated Documentation: 05/01/19 11:16. Limitations to Documentation: no limitations. Information obtained by: patient and RN notes reviewed. History of Present Illness 28 year old F presents to the emergency department with the chief complaint of left hand and wrist pain, described as moderate, Quality is described as burning, and is localized to the left and upper extremity. Patient reports no radiation. Patient started experiencing this hour(s) and it has been constant. Immobilization improves symptom(s), Movement worsens symptoms . Patient notes no other symptoms.. Patient did receive the following treatments prior to arrival, NSAID Related Data Home Medications Medication Instructions Recorded Confirmed acetaminophen 500 mg PO PRN PRN 12/12/18 05/01/19 epinephrine 0.3 mg IM ONCE #2 each 01/08/19 05/01/19 penicillin V potassium 500 mg PO TID 10 Days #30 tab 04/27/19 05/01/19 Previous Rx's Medication Instructions Recorded epinephrine 0.3 mg IM ONCE #2 each 01/08/19 penicillin V potassium 500 mg PO TID 10 Days #30 tab 04/27/19 Allergies Allergy/AdvReac Type Severity Reaction Status Date / Time codeine AdvReac Intermediate vomitting Verified 04/27/19 13:03 General Stated Complaint: Orthopedic MARK: 3 Review of Systems Constitutional Reports as per HPI, Denies chills, Denies fever(s), Denies headache(s) and Denies weakness ENT Denies headache(s) Cardiovascular Reports as per HPI Respiratory Reports as per HPI and Denies cough Musculoskeletal Reports as per HPI and Reports tingling Integumentary/Breasts Reports as per HPI, Denies rash and Denies wounds Neurologic Reports as per HPI, Denies headache(s), Reports tingling, Denies paresthesias and Denies weakness [facility] Medical History Upper abdominal pain of unknown etiology (Acute) Hypoglycemia (Chronic) Social History Smoking/Tobacco Use Status: Current every day Alcohol Intake: current Alcohol Intake frequency: a few times a month Drug use: Never Substance use type: marijuana Household members: family Do you feel safe in your relationship?: Yes Exam Const General: cooperative, healthy appearing, comfortable, no acute distress, well developed and well groomed Nutritional Appearance: average body habitus and well nourished Orientation: alert and awake Resp Effort & Inspection: normal respiratory effort, able to speak in complete sentences and no respiratory distress Cardio Rate: regular rate Rhythm: regular rhythm Skin General skin exam: no rashes or lesions noted Lesions: no lesions Rashes: no rashes Trauma: no lacerations or abrasions Neuro General: alert and awake Cognition: normal cognition Speech: speech normal Gait: normal gait Motor: muscle tone normal throughout Sensory Exam: no sensory deficits noted Extrem Left upper extremity: full ROM, normal capillary refill, no joint enlargement, elbow/forearm Details: normal to inspection and normal ROM; no tenderness, wrist Details: normal to inspection, tenderness Location: of the distal radius, of the anatomic snuffbox and of the dorsal wrist, normal ROM and normal vascular exam; no swelling, no unusual warmth, no abrasions and no deformity and hand Details: abnormal to inspection (swelling between 2&3 metacarpals), normal capillary refill, neuromotor exam normal, neurosensory exam normal, tendon exam normal, tenderness, normal ROM of fingers and swelling; no unusual warmth, no lacerations and no ecchymosis Psych Appearance: grossly normal and well kempt Mental Status: mental status grossly normal Speech and Movement: speech and movement normal Course Vital Signs Temperature 36.6 C 05/01/19 11:15 Pulse 90 05/01/19 11:15 Respiratory Rate 20 05/01/19 11:15 Pulse Oximetry 100 05/01/19 11:15 Temperature 36.6 C 05/01/19 11:15 Temperature Source Skin 05/01/19 11:15 Pulse 90 05/01/19 11:15 Respiratory Rate 20 05/01/19 11:15 Respiratory Effort Non-Labored 05/01/19 11:15 Blood Pressure 137/85 05/01/19 11:22 Pulse Oximetry 100 05/01/19 11:15 Oxygen Delivery Method Room Air 05/01/19 11:15 Oxygen Flow Rate 0 05/01/19 11:15
--- NOTE | 2019-05-01 11:30 | DI.RAD_ITS ---
SYMPTOM/DIAGNOSIS: TRAUMA LEFT WRIST: No fracture or dislocation is seen. IMPRESSION: Negative left wrist.
--- NOTE | 2019-05-01 11:35 | ED.GENADUL_ITS ---
Discharge Plan Disposition Patient Disposition: HOME Condition: Fair Discharge Details Chief Complaint: Orthopedic Clinical Impression: Left wrist sprain Primary Care Provider: Vane Jacobson ED Provider: Joselin Huitron Home Meds and New Rx's Prescriptions: Continued acetaminophen 500 mg Capsule 500 mg PO PRN PRNRF: 0 penicillin V potassium 500 mg tablet 500 mg PO TID 10 Days Qty: 30 RF: 0 epinephrine 0.3 mg/0.3 mL syringe 0.3 mg IM ONCE Qty: 2 RF: 0 Discharge Instructions Instructions: Wrist Sprain (ED) Additional Instructions: Encourage rest, ice, elevation. Tylenol and/or ibuprofen as needed for discomfort. Please follow-up with primary care in the next 1 week for reevaluation. As discussed, I am concerned about your scaphoid bone. Please continue to wear the brace provided until reevaluated. If you develop new or worsening symptoms seek care urgently once again peer Referrals: Vane Jacobson [Primary Care Provider] - Medical Decision Making Patient 28-year-old [id number] female presenting today with chief complaint of left hand and wrist pain. She reports that part few hours prior to arrival, her boyfriend was falling and she attempted to catch him. In her attempt, her hand got caught between his weight in a metal barrel that was behind him. Is endorsing pain over the radial side of the wrist and the second metacarpal. She is having pain over the anatomical snuffbox with palpation as well as axial thumb loading. Patient is a s/p tubal ligation. Will obtain XR to evaluate for possible fx. X-rays reviewed by myself with no acute process noted. Despite this, I am concerned for possible scaphoid injury and plan to treat patient in thumb spica. Discussed this finding with the patient as well as the risks associated with scaphoid injury. Encourage rest, ice, elevation. Tylenol and ibuprofen as needed for discomfort. Advised that she keep a thumb spica on until evaluated by primary care in the next 2 weeks. We discussed new/worsening symptoms when to seek care urgently once again. All of her questions and concerns were addressed and she is agreement this plan X-ray reviewed by radiologist and agree with with my initial read, no acute fracture or dislocation noted. HPI General Mode of arrival: ambulatory . Date/Time Provider Initiated Documentation: 05/01/19 11:16 . Limitations to Documentation: no limitations . Information obtained by: patient and RN notes reviewed . History of Present Illness 28 year old F presents to the emergency department with the chief complaint of left hand and wrist pain, described as moderate, Quality is described as burning, and is localized to the left and upper extremity. Patient reports no radiation. Patient started experiencing this hour(s) and it has been constant. Immobilization improves symptom(s), Movement worsens symptoms . Patient notes no other symptoms.. Patient did receive the following treatments prior to arrival, NSAID Related Data Home Medications Medication Instructions Recorded Confirmed acetaminophen 500 mg PO PRN PRN 12/12/18 05/01/19 epinephrine 0.3 mg IM ONCE #2 each 01/08/19 05/01/19 penicillin V potassium 500 mg PO TID 10 Days #30 tab 04/27/19 05/01/19 Previous Rx's Medication Instructions Recorded epinephrine 0.3 mg IM ONCE #2 each 01/08/19 penicillin V potassium 500 mg PO TID 10 Days #30 tab 04/27/19 Allergies Allergy/AdvReac Type Severity Reaction Status Date / Time codeine AdvReac Intermediate vomitting Verified 04/27/19 13:03 General Stated Complaint: Orthopedic MARK: 3 Review of Systems Constitutional Reports as per HPI, Denies chills, Denies fever(s), Denies headache(s) and Denies weakness ENT Denies headache(s) Cardiovascular Reports as per HPI Respiratory Reports as per HPI and Denies cough Musculoskeletal Reports as per HPI and Reports tingling Integumentary/Breasts Reports as per HPI, Denies rash and Denies wounds Neurologic Reports as per HPI, Denies headache(s), Reports tingling, Denies paresthesias and Denies weakness [facility] Medical History Upper abdominal pain of unknown etiology (Acute) Hypoglycemia (Chronic) Social History Smoking/Tobacco Use Status: Current every day Alcohol Intake: current Alcohol Intake frequency: a few times a month Drug use: Never Substance use type: marijuana Household members: family Do you feel safe in your relationship?: Yes Exam Const General: cooperative, healthy appearing, comfortable, no acute distress, well d eveloped and well groomed Nutritional Appearance: average body habitus and well nourished Orientation: alert and awake Resp Effort & Inspection: normal respiratory effort, able to speak in complete sentences and no respiratory distress Cardio Rate: regular rate Rhythm: regular rhythm Skin General skin exam: no rashes or lesions noted Lesions: no lesions Rashes: no rashes Trauma: no lacerations or abrasions Neuro General: alert and awake Cognition: normal cognition Speech: speech normal Gait: normal gait Motor: muscle tone normal throughout Sensory Exam: no sensory deficits noted Extrem Left upper extremity: full ROM, normal capillary refill, no joint enlargement, elbow/forearm Details: normal to inspection and normal ROM; no tenderness, wrist Details: normal to inspection, tenderness Location: of the distal radius, of the anatomic snuffbox and of the dorsal wrist, normal ROM and normal vascular exam; no swelling, no unusual warmth, no abrasions and no deformity and hand Details: abnormal to inspection (swelling between 2&3 metacarpals), normal capillary refill, neuromotor exam normal, neurosensory exam normal, tendon exam normal, tenderness, normal ROM of fingers and swelling; no unusual warmth, no lacerations and no ecchymosis Psych Appearance: grossly normal and well kempt Mental Status: mental status grossly normal Speech and Movement: speech and movement normal Course Vital Signs Temperature 36.6 C 05/01/19 11:15 Pulse 90 05/01/19 11:15 Respiratory Rate 20 05/01/19 11:15 Pulse Oximetry 100 05/01/19 11:15 Temperature 36.6 C 05/01/19 11:15 Temperature Source Skin 05/01/19 11:15 Pulse 90 05/01/19 11:15 Respiratory Rate 20 05/01/19 11:15 Respiratory Effort Non-Labored 05/01/19 11:15 Blood Pressure 137/85 05/01/19 11:22 Pulse Oximetry 100 05/01/19 11:15 Oxygen Delivery Method Room Air 05/01/19 11:15 Oxygen Flow Rate 0 05/01/19 11:15
[2019-05-01] MEDS: Acetaminophen 325 MG TAB 650 MG PO (11:38)
[2019-05-01 13:34] VITALS: BP 129/75; PULSE 85; RESP 18; O2SAT 97
--- NOTE | 2019-05-01 13:56 | DI.VRAD_ITS ---
EXAM: XR Left Wrist EXAM DATE/TIME: 05/01/2019 11:57 AM CLINICAL HISTORY: 28 years old, female; Pain; Wrist; Left; Patient HX: Trauma TECHNIQUE: Imaging protocol: XR Left wrist. Views: 3 or more views. COMPARISON: No relevant prior studies available. FINDINGS: Bones/joints: Normal. Soft tissues: Normal. IMPRESSION: No acute findings. Dictated and Authenticated by: Mukul Che MD. Ordering:WILD Olivera MD
== END 2019-05-01 13:34 | disposition home or self-care (01) ==
PROVIDERS: Emergency Provider Physician Assistant
DX: S63.502A Unspecified sprain of left wrist, initial encounter (principal); W23.0XXA Caught, crushed, jammed, or pinched between moving objects, initial encounter
CPT/HCPCS: 29125; 99283; 73110; L3807

== ENCOUNTER 2019-07-13 17:46 | Emergency (ER) | payer MEDICAID, SELFPAY ==
[2019-07-13 17:59] VITALS: BP 152/91; PULSE 79; RESP 18; TEMP 36.6; O2SAT 98
--- NOTE | 2019-07-13 18:09 | W.ED.GENAD ---
Discharge Plan Disposition Patient Disposition: HOME Condition: Improving Discharge Details Chief Complaint: DentalOral Clinical Impression: Odontalgia Primary Care Provider: Vane Jacobson ED Provider: Franklyn Marie Home Meds and New Rx's Prescriptions: New penicillin V potassium 500 mg tablet 500 mg PO TID 10 Days Qty: 30 RF: 0 No Action acetaminophen 500 mg Capsule 500 mg PO PRN PRNRF: 0 epinephrine 0.3 mg/0.3 mL syringe 0.3 mg IM ONCE Qty: 2 RF: 0 Discharge Instructions Instructions: Toothache (ED) Additional Instructions: Home to rest. Tylenol and ibuprofen as needed for discomfort. Call your dentist for a follow-up appointment Take penicillin as prescribed. Medical Decision Making 28-year-old female with odontalgia and broken cusp of right mandibular tooth. No evidence of overt infection or significant swelling. Will place on penicillin. Given ibuprofen. Right inferior alveolar block performed with improvement. Will place on penicillin. She is stable and appropriate for discharge to home. HPI General Mode of arrival: ambulatory. Date/Time Provider Initiated Documentation: 07/13/19 17:47. Limitations to Documentation: no limitations. Information obtained by: patient. History of Present Illness 28 year old F presents to the emergency department with the chief complaint of Right lower dental pain, broken tooth, described as moderate, Quality is described as dull and constant, and is localized to the mouth and right. Patient reports no radiation. Patient started experiencing this day(s) and it has been constant. No relieving factors improve symptom(s), Eating worsens symptoms . Patient did receive the following treatments prior to arrival, other (Tylenol) Related Data Home Medications Medication Instructions Recorded Confirmed acetaminophen 500 mg PO PRN PRN 12/12/18 07/13/19 epinephrine 0.3 mg IM ONCE #2 each 01/08/19 07/13/19 penicillin V potassium 500 mg PO TID 10 Days #30 tab 07/13/19 Previous Rx's Medication Instructions Recorded epinephrine 0.3 mg IM ONCE #2 each 01/08/19 penicillin V potassium 500 mg PO TID 10 Days #30 tab 07/13/19 Allergies Allergy/AdvReac Type Severity Reaction Status Date / Time codeine AdvReac Intermediate vomitting Verified 04/27/19 13:03 General Stated Complaint: DentalOral MARK: 4 Review of Systems Review of Systems Narrative: 4 systems reviewed and otherwise negative. No difficulty swallowing, no change to speech. [facility] Medical History Hypoglycemia (Chronic) Upper abdominal pain of unknown etiology (Acute) Social History Smoking/Tobacco Use Status: Current every day Alcohol Intake: current Alcohol Intake frequency: a few times a month Drug use: Never Substance use type: marijuana Household members: family Do you feel safe in your relationship?: Yes Exam Narrative Exam Narrative: GEN: awake, alert, oriented 3. Pleasant, well groomed, interactive. HEAD: Normocephalic, atraumatic ENT: Mucous membranes moist, oropharynx with broken posterior lateral cusp of right second mandibular premolar. No significant buccal or lingual swelling, External ear exam unremarkable EYES: PERRL, EOMI NECK: Full ROM, no ZULEIMA, no menigismus Neuro: Grossly normal neurologic exam, conversant, interactive. Psych: Speech fluent, thoughts congruent, affect normal Course Vital Signs Vital signs: Vital Signs Temperature 36.6 C 07/13/19 17:59 Pulse 79 07/13/19 17:59 Respiratory Rate 18 07/13/19 17:59 Blood Pressure 152/91 H 07/13/19 17:59 Pulse Oximetry 98 07/13/19 17:59 Temperature 36.6 C 07/13/19 17:59 Temperature Source Skin 07/13/19 17:59 Pulse 79 07/13/19 17:59 Respiratory Rate 18 07/13/19 17:59 Blood Pressure 152/91 H 07/13/19 17:59 Blood Pressure Position Sitting 07/13/19 17:59 Pulse Oximetry 98 07/13/19 17:59 Oxygen Delivery Method Room Air 07/13/19 17:59 Oxygen Flow Rate 0 07/13/19 17:59 Pain Level 9 07/13/19 17:59 Procedures Nerve Block Nerve Block 1: Local Anesthetic: Bupivicaine 0.25% Side: right Nerve Blocks: other Intraoral Nerve Block: inferior alveolar
[2019-07-13] MEDS: Ibuprofen 800 MG TAB PO (18:12)
[2019-07-13] MEDS: Penicillin V POTASSIUM 500 MG TAB PO (18:12)
[2019-07-13] MEDS: Penicillin V POTASSIUM 500 MG TAB (18:27)
[2019-07-13] MEDS: Ibuprofen 800 MG TAB (18:27)
== END 2019-07-13 18:55 | disposition home or self-care (01) ==
PROVIDERS: Emergency Provider Emergency Medicine
DX: S02.5XXA Fracture of tooth (traumatic), initial encounter for closed fracture (principal); X58.XXXA Exposure to other specified factors, initial encounter; K08.89 Other specified disorders of teeth and supporting structures
CPT/HCPCS: 64402

== ENCOUNTER 2019-07-31 10:41 | Emergency (ER) | payer MEDICAID, SELFPAY ==
[2019-07-31 10:45] VITALS: BP 145/92; PULSE 75; RESP 16; TEMP 36.4; O2SAT 100
--- NOTE | 2019-07-31 11:02 | DI.RAD_ITS ---
EXAM: XR FOOT RT COMPLETE INDICATION: fall, calcaneus pain. COMPARISON: No exams were available for comparison TECHNIQUE: 2D digital imaging was performed. FINDINGS: Three views were obtained. No fracture is seen. IMPRESSION:
[2019-07-31] MEDS: Ibuprofen 600 MG TAB PO (11:14)
--- NOTE | 2019-07-31 11:54 | DI.RAD_ITS ---
EXAM: XR HEEL RT OS CALCIS INDICATION: heel pain- injury. COMPARISON: XR FOOT RT COMPLETE from 07/31/2019 TECHNIQUE: 2D digital imaging was performed. FINDINGS: Two views were obtained. No bony abnormality seen involving the calcaneus. Sub talar joints appear intact. IMPRESSION:
--- NOTE | 2019-07-31 12:26 | ED.GENADUL_ITS ---
Discharge Plan Disposition Patient Disposition: HOME Condition: Stable Discharge Details Chief Complaint: Orthopedic Clinical Impression: Pain of right heel Primary Care Provider: Vane Jacobson ED Provider: Enio Casper Home Meds and New Rx's Prescriptions: No Action acetaminophen 500 mg Capsule 500 mg PO PRN PRNRF: 0 epinephrine 0.3 mg/0.3 mL syringe 0.3 mg IM ONCE Qty: 2 RF: 0 Discharge Instructions Instructions: Foot Contusion (ED) Additional Instructions: Continue to rest ice and elevate your extremity and slowly advance activity as tolerated. You may continue to take acetaminophen and ibuprofen for pain control. It is recommended that you take 1000 mg of acetaminophen with 600 mg of ibuprofen every 6 hours. If not improving in the next couple weeks please call orthopedic office for arrangement of follow-up appointment. Referrals: Raoul Foster MD [ [facility] STAFF PHYSICIAN] - (If not improving over the next 1 to 2 weeks please call the office for arrangement of reassessment) Discharge Data Discharge Date/Time-TO BE ENTERED AT DEPARTURE: 07/31/19 12:41 Medical Decision Making Patient presenting the emergency department for chief complaint of right heel pain. Patient reports 2 days ago she simply jumped off the countertop and landed funny on her right heel. She states since then she has had significant amount of pain and discomfort. Patient has been able to be slightly weightbearing but states painful with full weightbearing. Patient denies any other injury or trauma, denies any back pain. Physical exam shows tenderness to squeeze of the calcaneus and the lateral ankle otherwise unremarkable examination. Plan to do radiological imaging for evaluation of acute fracture. Review of radiological imaging including specialized view of the calcaneus shows no calcaneus fracture. Given low mechanism of injury I feel that more likely patient may have a contusion of the heel. Patient was encouraged to ice, elevate, and rest the extremity and slowly advance activity as tolerated. Patient was informed to follow-up with orthopedics if not improving for further imaging and reassessment. HPI General Mode of arrival: ambulatory . Date/Time Provider Initiated Documentation: 07/31/19 10:44 . Limitations to Documentation: no limitations . Information obtained by: patient and RN notes reviewed . History of Present Illness 28 year old F presents to the emergency department with the chief complaint of right heel pain, described as moderate, with intensity rated at 8. Quality is described as sharp, and is localized to the right and lower extremity. Patient started experiencing this day(s) (2) and it has been constant. No relieving factors improve symptom(s), Patient notes no other symptoms.. Related Data Home Medications Medication Instructions Recorded Confirmed acetaminophen 500 mg PO PRN PRN 12/12/18 07/31/19 epinephrine 0.3 mg IM ONCE #2 each 01/08/19 07/31/19 Previous Rx's Medication Instructions Recorded epinephrine 0.3 mg IM ONCE #2 each 01/08/19 Allergies Allergy/AdvReac Type Severity Reaction Status Date / Time codeine AdvReac Intermediate vomitting Verified 07/31/19 10:48 General Stated Complaint: Orthopedic MARK: 4 Review of Systems Cardiovascular Cardiovascular: Denies syncope Musculoskeletal Musculoskeletal: Reports as per HPI, Denies numbness and Denies tingling Integumentary/Breasts Skin/Breast: Denies rash, Denies sores and Denies wounds Neurologic Neurologic: Denies syncope, Denies numbness and Denies tingling [facility] Medical History Hypoglycemia (Chronic) Upper abdominal pain of unknown etiology (Acute) Social History Smoking/Tobacco Use Status: Current every day Tobacco Type: cigarettes Alcohol Intake: current Alcohol Intake frequency: a few times a month Drug use: Never Substance use type: marijuana Household members: family Do you feel safe at home: Yes Do you feel safe in your relationship?: Yes Exam Const General: cooperative and no acute distress Orientation: alert, awake and oriented x3 Resp Effort & Inspection: normal respiratory effort and able to speak in complete sentences Cardio Rate: regular rate Rhythm: regular rhythm Extrem Right lower extremity: lower leg Details: normal to inspection; no tenderness, ankle Details: normal to inspection, tenderness Location: anterolaterally and normal ROM; no ecchymosis and no crepitus and foot Details: tenderness Location: of the calcaneus Details: with squeeze, toes with normal ROM, vascular exam Details: dorsalis pedis pulse present and normal capillary refill and motor- sensory exam Details: two point discrimination normal and light-touch normal; no ecchymosis and no crepitus Course Vital Signs Vital signs: Vital Signs Temperature 36.4 C L 07/31/19 10:45 Pulse 75 07/31/19 10:45 Respiratory Rate 16 07/31/19 10:45 Blood Pressure 145/92 H 07/31/19 10:45 Pulse Oximetry 100 07/31/19 10:45 Temperature 36.4 C L 07/31/19 10:45 Temperature Source Skin 07/31/19 10:45 Pulse 75 07/31/19 10:45 Respiratory Rate 16 07/31/19 10:45 Respiratory Effort Non-Labored 07/31/19 10:46 Blood Pressure 145/92 H 07/31/19 10:45 Blood Pressure Position Sitting 07/31/19 10:45 Pulse Oximetry 100 07/31/19 10:45 Oxygen Delivery Method Room Air 07/31/19 10:45 Oxygen Flow Rate 0 07/31/19 10:45 Pain Level 8 07/31/19 11:14
[2019-07-31 12:37] VITALS: BP 145/92; PULSE 75; RESP 16; TEMP 36.4; O2SAT 100
== END 2019-07-31 12:41 | disposition home or self-care (01) ==
PROVIDERS: Emergency Provider Nurse Practitioner Family
DX: M79.671 Pain in right foot (principal)
CPT/HCPCS: 99284; 73630; 73650; 99282

== ENCOUNTER 2019-08-11 13:51 | Emergency (ER) | payer MEDICAID, SELFPAY ==
[2019-08-11 13:56] VITALS: BP 145/91; PULSE 115; RESP 16; TEMP 36; O2SAT 97
--- NOTE | 2019-08-11 14:05 | DI.CT_ITS ---
EXAM: CT FACIAL W CLINICAL HISTORY: right facial swelling and pain TECHNIQUE: COMPARISON: No exams were available for comparison FINDINGS: CT examination facial region was performed with bolus infusion of 100 cc of Omnipaque 350. The patie nt has had reportedly had a recent right mandibular tooth extraction. No cervical facial mass or nelida nopathy seen. Tracheolaryngeal structures appear intact. There is gas collection which appears to l ie in the right cash management specialist space just at the anterior border of the temporalis muscle posterior to th e retro maxillary fat pad. No gross fluid collection associated with this gas collection. Patient patrick s reportedly had a recent injection at this site and this may account for the small gas collection. N o fluid collection or enhancing rim identified to suggest the presence of abscess. IMPRESSION: Recent right facial injection, no evidence of abscess.
--- NOTE | 2019-08-11 14:12 | ED.GENADUL_ITS ---
Discharge Plan Disposition Patient Disposition: HOME Discharge Details Chief Complaint: DentalOral Clinical Impression: Pain, dental, Chest pain Primary Care Provider: Vane Jacobson ED Provider: Brooks Franklin Home Meds and New Rx's Prescriptions: New ondansetron 4 mg tablet,disintegrating 4 mg PO Q8H Qty: 10 RF: 0 No Action acetaminophen 500 mg Capsule 500 mg PO PRN PRNRF: 0 epinephrine 0.3 mg/0.3 mL syringe 0.3 mg IM ONCE Qty: 2 RF: 0 Discharge Instructions Instructions: Chest Pain (ED), Toothache (ED) Additional Instructions: Your CAT scan was negative for any abscess around the extracted tooth. Your blood tests all resulted normal including markers for damage to your heart. If you continue to develop severe pain and/or vomiting you must return to the emergency department. Continue to take your Augmentin as prescribed. Add a probiotic to your regimen. Take the ondansetron for nausea. Follow-up with your dentist as scheduled Referrals: Rhoda Feliciano [Emergency Nurse] - 5 days Discharge Data Discharge Date/Time-TO BE ENTERED AT DEPARTURE: 08/11/19 16:35 Medical Decision Making <TREY Haney - Last Filed: 08/11/19 15:57> 14:41 Patient here in the emergency department with the above chief complaint. She describes severe dental pain. Minimal swelling along the lower mandible. No facial erythema. Vitals are stable and without fever. She is now complaining of chest pain that she had over the last 2 to 3 days. 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 Her EKG today shows sinus rhythm with occasional PACs and a heart rate of 92 bpm. Troponin added onto her initial blood test. She will need to stay for 3-hour rule out. She denies any shortness of breath. She is not tachycardic on her EKG. She shows no S1Q3T3. No history of VTE. She is not on hormonal therapy. PERC negative and I have low suspicion for PE at this time. CT scan of her face ordered. Imaging Data Radiologic Study: Imaging: CT Scan Lab Data Labs: Laboratory Last Values WBC 8.20 k/cumm (4.4-10.8) 08/11/19 14:29 RBC 4.31 m/cumm (4.00-5.20) 08/11/19 14:29 Hgb 13.5 g/dL (12.0-15.5) 08/11/19 14:29 Hct 40.3 % (36.0-46.0) 08/11/19 14:29 MCV 93.5 fL (80-95) 08/11/19 14:29 MCH 31.3 pg (27.0-33.0) 08/11/19 14:29 MCHC 33.5 g/dL (32.0-36.0) 08/11/19 14:29 RDW 12.9 % (11.7-14.6) 08/11/19 14:29 Plt Count 274 x1000/uL (130-400) 08/11/19 14: MPV 11.0 fL (8.0-11.0) 08/11/19 14: Immature Gran % 0.1 08/11/19 14:29 Neutrophils % 65.3 08/11/19 14:29 Lymphocytes % 26.3 08/11/19 14:29 Monocytes % 6.6 08/11/19 14:29 Eosinophils % 1.6 08/11/19 14:29 Basophils % 0.1 08/11/19 14:29 Absolute Neutrophils 5.35 k/cumm (1.2-6.7) 08/11/19 14:29 Absolute Lymphocytes 2.16 k/cumm (1.2-3.4) 08/11/19 14:29 Absolute Monocytes 0.54 k/cumm (0.11-0.7) 08/11/19 14:29 Absolute Eosinophils 0.13 k/cumm (0.0-0.7) 08/11/19 14:29 Absolute Basophils 0.01 k/cumm (0.0-0.2) 08/11/19 14:29 Sodium 140 mmol/L (136-145) 08/11/19 14:29 Potassium 3.8 mmol/L (3.5-5.1) 08/11/19 14:29 Chloride 104 mmol/L (98-107) 08/11/19 14:29 Carbon Dioxide 25.7 mmol/L (21.0-32.0) 08/11/19 14:29 Anion Gap 10.3 mmol/L (3-11) 08/11/19 14:29 BUN 13 mg/dL (7-18) 08/11/19 14:29 Creatinine 0.83 mg/dL (0.55-1.02) 08/11/19 14:29 Estimated GFR/1.73 m2 >= 60.00 (mL/min/1.73m2) 08/11/19 14:29 Glucose 86 mg/dL (70-100) 08/11/19 14:29 Calcium 9.1 mg/dL (8.5-10.1) 08/11/19 14:29 Total Bilirubin 0.3 mg/dL (0.2-1.0) 08/11/19 14:29 AST 16 U/L (15-37) 08/11/19 14:29 ALT 29 U/L (14-59) 08/11/19 14:29 Alkaline Phosphatase 61 U/L (46-116) 08/11/19 14:29 Troponin I < 0.05 ng/mL (0.00-0.06) 08/11/19 14: C-Reactive Protein 0.24 mg/dL (0.0-0.3) 08/11/19 14:29 Total Protein 7.9 g/dL (6.4-8.2) 08/11/19 14:29 Albumin 4.1 g/dL (3.4-5.0) 08/11/19 14:29 ECG Data Interpretation: Normal sinus rhythm with a heart rate of 92 bpm. Occasional PACs. No ST changes. <TREY Campoverde - Last Filed: 08/11/19 17:42> Care was transitioned to myself but prior to me being able to even evaluate the patient or her repeat troponin being completed, patient left AMA. Please see nursing notes. HPI <TREY Haney - Last Filed: 08/11/19 15:57> General Date/Time Provider Initiated Documentation: 08/11/19 14:05 . HPI Narrative: Patient is a 28-year-old female with a significant history for previous dental extraction currently on Augmentin for the last 24 hours prescribed by urgent care provider who presents to the emergency department with worsening right jaw pain and swelling. Patient states that she had nausea and vomiting over the last 3 to 4 days. She has had difficulty keeping her pills down. She denies an y fevers. She states that her jaw is swollen and very tender to touch. Related Data Home Medications Medication Instructions Recorded Confirmed acetaminophen 500 mg PO PRN PRN 12/12/18 08/11/19 epinephrine 0.3 mg IM ONCE #2 each 01/08/19 08/11/19 ondansetron 4 mg PO Q8H #10 tab 08/11/19 Previous Rx's Medication Instructions Recorded epinephrine 0.3 mg IM ONCE #2 each 01/08/19 ondansetron 4 mg PO Q8H #10 tab 08/11/19 Allergies Allergy/AdvReac Type Severity Reaction Status Date / Time codeine AdvReac Intermediate vomitting Verified 08/11/19 14:00 General Stated Complaint: DentalOral MARK: 3 Review of Systems <TREY Haney - Last Filed: 08/11/19 15:57> Constitutional Constitutional: Denies chills, Denies fever(s), Denies lethargy and Denies night sweats Eyes Eyes: Denies eye discharge, Denies irritation, Denies itchy eyes, Denies loss of peripheral vision, Denies loss of vision and Denies photophobia ENT Ears, Nose, Mouth, and Throat: Denies dizziness, Denies dry mouth, Denies neck pain, Denies sinus pain, Denies sore throat, Denies throat swelling and Denies tongue swelling Cardiovascular Cardiovascular: Denies lightheadedness Gastrointestinal Gastrointestinal: Reports nausea and Reports vomiting Musculoskeletal Musculoskeletal: Denies back pain, Denies arthralgias, Denies joint swelling, Denies limited range of motion and Denies neck pain Neurologic Neurologic: Denies dizziness and Denies loss of vision Allergic/Immunologic Allergic/Immunologic: Denies itchy eyes, Denies throat swelling and Denies tongue swelling PFSH <TREY Haney - Last Filed: 08/11/19 15:57> Medical History Hypoglycemia (Chronic) Upper abdominal pain of unknown etiology (Acute) Social History Smoking/Tobacco Use Status: Current every day Tobacco Type: cigarettes Alcohol Intake: current Alcohol Intake frequency: a few times a month Drug use: Never Substance use type: marijuana Household members: family Do you feel safe at home: Yes Do you feel safe in your relationship?: Yes Exam <TREY Haney Last Filed: 08/11/19 15:57> Const General: cooperative, healthy appearing, in distress and anxious Orientation: alert, awake and oriented x3 HENMT Head: normal to inspection Ears: hearing grossly normal bilaterally Face and sinus: no erythema, edema and tenderness on the right Mouth: moist mucous membranes Teeth and gingiva: caries Throat: posterior oropharynx normal Eyes General: appearance normal, both eyes and all related structures Neck Neck: normal visual inspection, full ROM and no lymphadenopathy Resp Effort & Inspection: normal respiratory effort Skin General skin exam: no rashes or lesions noted Course <TREY Haney Last Filed: 08/11/19 15:57> Vital Signs Vital signs: Vital Signs Temperature 36 C L 08/11/19 13:56 Pulse 115 H 08/11/19 13:56 Respiratory Rate 16 08/11/19 13:56 Blood Pressure 145/91 H 08/11/19 13:56 Pulse Oximetry 97 08/11/19 13:56 Temperature 36 C L 08/11/19 13:56 Temperature Source Skin 08/11/19 13:56 Pulse 115 H 08/11/19 13:56 Respiratory Rate 16 08/11/19 13:56 Respiratory Effort Non-Labored 08/11/19 13:56 Blood Pressure 145/91 H 08/11/19 13:56 Blood Pressure Position Sitting 08/11/19 13:56 Pulse Oximetry 97 08/11/19 13:56 Oxygen Delivery Method Room Air 08/11/19 13:56 Oxygen Flow Rate 0 08/11/19 13:56 Pain Level 10 08/11/19 13:56 Procedures <TREY Haney - Last Filed: 08/11/19 15:57> Nerve Block Nerve Block 1: Local Anesthetic: Bupivicaine 0.5% Amount of anesthesia used (mL): 2 Side: right Intraoral Nerve Block: inferior alveolar Procedure Successful: Yes Patient Tolerated Procedure: well Complications: none
[2019-08-11 14:34] LABS: Abs Immature Grans 0.01 k/cumm (0.0-0.09); Absolute Basophil Count 0.01 k/cumm (0.0-0.2); Absolute Eosinophil Count 0.13 k/cumm (0.0-0.7); Absolute Lymphocyte Count 2.16 k/cumm (1.2-3.4); Absolute Monocyte Count 0.54 k/cumm (0.11-0.7); Absolute Neutrophil Count 5.35 k/cumm (1.2-6.7); Basophils % 0.1; Eosinophils % 1.6; HCT 40.3 % (36.0-46.0); HGB 13.5 g/dL (12.0-15.5); Immature Grans % 0.1; Lymphocytes % 26.3; Mean Corp. HGB Concentration 33.5 g/dL (32.0-36.0); Mean Corpuscular Hemoglobin 31.3 pg (27.0-33.0); Mean Corpuscular Volume 93.5 fL (80-95); Monocytes % 6.6; Neutrophils % 65.3; Platelet Count 274 x1000/uL (130-400); RBC 4.31 m/cumm (4.00-5.20); RBC Distribution Width 12.9 % (11.7-14.6)
[2019-08-11] MEDS: Normal Saline 1,000 ML 1000 ML IV (14:40)
[2019-08-11] MEDS: Ondansetron 4 MG/2 ML VIAL IVP (14:41)
[2019-08-11] MEDS: HYDROmorphone 2 MG/ML VIAL 0.5 MG IVP (14:43)
[2019-08-11] MEDS: Omnipaque 350 MG/ML 100 ML BTL IJ (15:00)
[2019-08-11 15:01] LABS: ALT 29 U/L (14-59); AST 16 U/L (15-37); Albumin 4.1 g/dL (3.4-5.0); Alkaline Phosphatase 61 U/L (46-116); Anion Gap 10.3 mmol/L (3-11); BUN 13 mg/dL (7-18); Bilirubin, Total 0.3 mg/dL (0.2-1.0); CO2 25.7 mmol/L (21.0-32.0); CREATININE 0.83 mg/dL (0.55-1.02); Calcium 9.1 mg/dL (8.5-10.1); Chloride 104 mmol/L (98-107); Glucose 86 mg/dL (70-100); Potassium 3.8 mmol/L (3.5-5.1); Sodium 140 mmol/L (136-145); Total Protein 7.9 g/dL (6.4-8.2)
[2019-08-11 15:21] LABS: C-Reactive Protein 0.24 mg/dL (0.0-0.3)
[2019-08-11 15:22] LABS: Troponin I < 0.05 ng/mL (0.00-0.06)
[2019-08-11 15:25] VITALS: BP 118/72; PULSE 85; RESP 16; TEMP 36.8; O2SAT 99
[2019-08-11] MEDS: Ketorolac 15 MG/ML VIAL IVP (15:30)
[2019-08-11] MEDS: AMPICILLIN/SULBACTAM 3 GM in Normal Saline 100 ML IVPB (15:53)
== END 2019-08-11 16:35 | disposition home or self-care (01) ==
PROVIDERS: Emergency Provider Physician Assistant
DX: K08.89 Other specified disorders of teeth and supporting structures (principal); R07.9 Chest pain, unspecified
CPT/HCPCS: 36415; 80053; 93005; 96361; 96365; 96376; 99285; 70487; 84484; 85025; 86140; 93010; J0295; J1885; J2405; J3490

== ENCOUNTER 2019-09-12 16:51 | Emergency (ER) | payer MEDICAID, SELFPAY ==
[2019-09-12 16:56] VITALS: BP 161/86; PULSE 79; RESP 18; TEMP 36.7; O2SAT 97
--- NOTE | 2019-09-12 17:36 | DI.CT_ITS ---
EXAM: CT NECK CHEST W CLINICAL HISTORY: swelling in right neck, neck pain, CP, LAD TECHNIQUE: 100 cc Omnipaque 350. COMPARISON: No exams were available for comparison FINDINGS: NECK CT: Visualized portions of the brain are unremarkable. The parotid, submandibular and thyroid g lands appear normal. There is no airway narrowing. No adenopathy, abscess or tonsillar enlargement is seen. The upper lobes appear clear. Minimal endplate osteophytes and disc bulging are seen at C5 -6. CHEST CT: The heart size is normal. No pleural or pericardial effusions are seen. There is normal r esidual thymic tissue. No mass or adenopathy is seen. The lungs appear clear. There is no evidence of pneumothorax, infiltrate or effusion. No thoracic compression fractures are seen. The liver torres ws fatty infiltration. The gallbladder is unremarkable. The spleen is normal in size. There is a l arge quantity of stool seen in the visualized portions of the colon. IMPRESSION: No acute abnormality in the chest or neck.
[2019-09-12 17:50] LABS: Abs Immature Grans 0.02 k/cumm (0.0-0.09); Absolute Basophil Count 0.01 k/cumm (0.0-0.2); Absolute Eosinophil Count 0.06 k/cumm (0.0-0.7); Absolute Lymphocyte Count 2.25 k/cumm (1.2-3.4); Absolute Monocyte Count 0.73 k/cumm (0.11-0.7); Absolute Neutrophil Count 6.63 k/cumm (1.2-6.7); Basophils % 0.1; Eosinophils % 0.6; HCT 40.3 % (36.0-46.0); HGB 13.4 g/dL (12.0-15.5); Immature Grans % 0.2; Lymphocytes % 23.2; Mean Corp. HGB Concentration 33.3 g/dL (32.0-36.0); Mean Corpuscular Volume 93.3 fL (80-95); Mean Platelet Volume 10.4 fL (8.0-11.0); Monocytes % 7.5; Neutrophils % 68.4; Platelet Count 254 x1000/uL (130-400); RBC 4.32 m/cumm (4.00-5.20); RBC Distribution Width 13.6 % (11.7-14.6)
[2019-09-12 17:56] VITALS: RESP 16
[2019-09-12 18:10] LABS: ALT 31 U/L (14-59); AST 15 U/L (15-37); Albumin 4.2 g/dL (3.4-5.0); Alkaline Phosphatase 58 U/L (46-116); Anion Gap 7.9 mmol/L (3-11); BUN 21 mg/dL (7-18); Bilirubin, Total 0.3 mg/dL (0.2-1.0); CO2 26.1 mmol/L (21.0-32.0); CREATININE 0.94 mg/dL (0.55-1.02); Calcium 9.2 mg/dL (8.5-10.1); Chloride 106 mmol/L (98-107); Glucose 86 mg/dL (70-100); Potassium 4.1 mmol/L (3.5-5.1); Sodium 140 mmol/L (136-145); TSH (W/Ref FT4) 8.37 uIU/mL (0.36-3.74); Total Protein 7.7 g/dL (6.4-8.2)
[2019-09-12] MEDS: Omnipaque 350 MG/ML 100 ML BTL IJ (18:18)
[2019-09-12] MEDS: Normal Saline 1,000 ML 150 ML IV (18:27)
[2019-09-12 18:28] LABS: FREE T4 1.05 ng/dL (0.76-1.46)
[2019-09-12] MEDS: Dexamethasone 10 MG/ML VIAL PO (18:51)
--- NOTE | 2019-09-12 19:01 | DI.VRAD_ITS ---
PROCEDURE INFORMATION: Exam: CT Neck With Contrast Exam date and time: 09/12/2019 6:07 PM Clinical history: 29 years old, female; Other: Swelling in RT neck, neck pain, cp, lad TECHNIQUE: Imaging protocol: Computed tomography images of the neck with intravenous contrast. COMPARISON: No relevant prior studies available. FINDINGS: Brain: Visualized intracranial contents are unremarkable. The infratemporal fossae and trauma surgeon spaces are unremarkable. Orbits: Orbital contents are normal. Sinuses: The paranasal sinuses are clear. Nasopharynx: The nasopharynx is unremarkable. Oropharynx: The parapharyngeal spaces are unremarkable. The oropharynx is unremarkable. Hypopharynx: The hypopharynx is unremarkable. Normal epiglottis. Larynx: Visualized larynx is unremarkable. Retropharyngeal space: Unremarkable. Submandibular/Parotid glands: The parotid and submandibular glands are unremarkable. Thyroid: The visualized thyroid gland is unremarkable. Lymph nodes: No adenopathy. Trachea: The visualized proximal tracheal airway is unremarkable. Lungs: Unremarkable as visualized. Vasculature: No acute vascular abnormalities are appreciated. There is mild to moderate tortuosity of the ICA cervical segments considering the patient's age. Mastoid air cells: The mastoid air cells are clear. Bones/joints: No facial fractures are identified. TMJs are well aligned. No acute osseous abnormalities. Mild left and moderate disc space narrowing C5-C6 with mild posterior spurring and small 2 mm posterior central annular protrusion. Soft tissues: No significant facial/neck soft tissue swelling is appreciated. No fluid collections. No hematoma or foreign body. IMPRESSION: 1. No gross soft tissue swelling/edema or fluid collections. No mass lesions or adenopathy. 2. There is mild-moderate tortuosity of the ICA cervical segments considering the patient's young age. 3. Mild-moderate degenerative disc space narrowing C5-C6 with mild posterior spurring and a small 2 mm posterior central annular protrusion. PROCEDURE INFORMATION: Exam: CT Chest With Contrast Exam date and time: 09/12/2019 6:07 PM Clinical history: 29 years old, female; Other: Swelling in RT neck, neck pain, cp, lad TECHNIQUE: Imaging protocol: Computed tomography of the chest with intravenous contrast. Radiation optimization: All CT scans at this facility use at least one of these dose optimization techniques: automated exposure control; mA and/or kV adjustment per patient size (includes targeted exams where dose is matched to clinical indication); or iterative reconstruction. COMPARISON: No relevant prior studies available. FINDINGS: Thyroid: The visualized thyroid gland is unremarkable. Lungs: No tracheobronchial abnormalities. No infiltrates or edema. No pulmonary nodules or mass lesions are identified. Pleural space: No pleural effusions. No pneumothorax. Heart: Heart size normal. Mediastinum: The esophagus is largely contracted without gross abnormality. Pulmonary arteries: The pulmonary arteries demonstrate no gross abnormality. Aorta: The aorta enhances appropriately without evidence of dissection or aneurysm. No mediastinal hematoma. Normal thymic tissue in the anterior mediastinum. Lymph nodes: No supraclavicular or axillary adenopathy. No mediastinal or hilar adenopathy. Stomach and bowel: Moderate stool throughout the visualized colon suggesting constipation. Suspect mild generalized fatty infiltration of the liver. Visualized upper abdominal structures are otherwise unremarkable. Bones/joints: No acute osseous abnormalities are identified. Soft tissues: Soft tissues of the thoracic wall demonstrate no gross abnormality. IMPRESSION: 1. No acute thoracic process is identified. 2. Suspect mild generalized fatty infiltration of the liver. 3. There is a moderate amount of stool distributed throughout the visualized upper abdominal colonic segments suggesting constipation. Dictated and Authenticated by: Stan Ayala MD. Ordering:МАРИНА Huitron MD
[2019-09-12 19:06] VITALS: BP 117/96; PULSE 75; RESP 16; TEMP 36.9; O2SAT 98
--- NOTE | 2019-09-12 20:12 | ED.GENADUL_ITS ---
Discharge Plan Disposition Patient Disposition: HOME Discharge Details Chief Complaint: GenMedical Clinical Impression: Neck pain on right side Primary Care Provider: Jose J Lua ED Provider: Tomy Alonzo Home Meds and New Rx's Prescriptions: New gabapentin [Neurontin] 100 mg capsule 100 mg PO TID Qty: 60 RF: 0 Continued acetaminophen 325 mg Tablet 650 mg PO PRN PRNRF: 0 ibuprofen 200 mg Tablet 400 mg PO Q6H PRNRF: 0 epinephrine 0.3 mg/0.3 mL syringe 0.3 mg IM ONCE Qty: 2 RF: 0 ondansetron 4 mg tablet,disintegrating 4 mg PO Q8H Qty: 10 RF: 0 Discharge Instructions Additional Instructions: Please take Tylenol and ibuprofen as prescribed. You have been started on Neurontin for pain. This medication needs to be monitored. Be sure to discuss with your primary care physician on Sunday. Please contact your primary care as scheduled. Please follow-up with an oral, maxillary, facial surgeon as previously suggested by your dentist. Return to the ER immediately immediately for any worsening or new concerning symptoms. Referrals: Jose J Lua, [employer] [Primary Care Provider] - Medical Decision Making 29-year-old female here with right neck pain and sensation of swelling in her neck and upper chest and associated sore throat. Some difficulty with inspiration, noting what she perceives as constricted airway. Patient has had dental pain and infection treated with multiple courses of antibiotics over the past 60 days status post dental tooth extraction. Patient does have some dental caries but otherwise mouth and oropharynx appears normal. Patient recently seen in outside emergency department earlier today and informed that she may have lymphoma and instructed to follow-up with PCP. Patient was given Decadron 10 mg orally to reduce inflammation. Labs reviewed and nondiagnostic. No abnormalities to CBC other than slight elevation of absolute monocytes. TSH elevated but free T4 normal. CT scan of the neck and chest were obtained to assess for lymphadenopathy and airway impingement. CT of the neck was interpreted by radiology:IMPRESSION: 1. No gross soft tissue swelling/edema or fluid collections. No mass lesions or adenopathy. 2. There is mild-moderate tortuosity of the ICA cervical segments considering the patient's young age. 3. Mild-moderate degenerative disc space narrowing C5-C6 with mild posterior spurring and a small 2 mm posterior central annular protrusion. CT of the chest was interpreted by radiology: IMPRESSION: 1. No acute thoracic process is identified. 2. Suspect mild generalized fatty infiltration of the liver. 3. There is a moderate amount of stool distributed throughout the visualized upper abdominal colonic segments suggesting constipation. Lymph nodes noted to have no adenopathy. Lungs are noted to be unremarkable. No acute vascular abnormalities were appreciated. There was visualization of mandible and no acute osseous abnormalities were noted. All results were discussed with the patient. Patient remained stable in the emergency moment. She continues to complain of pain in her right neck. Unclear etiology at this point. Given onset after dental extraction, consider regional pain syndrome post extraction. Patient has been using Tylenol and ibuprofen without much relief. Plan to trial Neurontin, low-dose, to see if this provides some relief. Patient does have follow-up with her PCP on Sunday and I have encouraged her to review this medication as adjustments may need to be made. Patient was also encouraged to follow-up with oral, maxillary, facial specialist given pain symptoms started post extraction. Disposition decision was made weighing the risks and benefits of hospitalization versus outpatient treatment, the risk for further decompensation, and the patient's wishes. The patient was stable. Prior to discharge, my usual and customary return precautions were reviewed with the patient - this included follow-up instructions and reason to return to the emergency department if condition worsens, does not improve as expected, or other new concerns arise. HPI General Mode of arrival: ambulatory . Date/Time Provider Initiated Documentation: 09/12/19 17:09 . Limitations to Documentation: no limitations . Information obtained by: patient . HPI Narrative: 29-year-old female presents with chief complaint of swollen lymph nodes. Patient notes that she has had intermittent facial and neck swelling since late summer. She notes that at that time she had a dental extraction for abscessed tooth. She reports that she was on antibiotics initially with infection and then subsequently required multiple courses of antibiotics for recurrent pain and concern for infection. She states that she is taken amoxicillin, Augmentin, and clindamycin. She recently completed a course of clindamycin. Patient notes she was seen at outside [facility] emergency department, [facility], earlier today for pain, right neck swelling and also generalized weakness and had negative mono test and was told that she may have lymphoma and that she should follow-up with her primary care physician. This is created significant anxiety for her. She states that since she was seen at [facility], she has had worsening discomfort in her throat. She notes a sensation of constricted airway in her throat. Symptoms are moderate to severe. No modifiers. She does note that she has intermittently felt feverish recently. She also states some pressure and pain in her right ear and right eye. Related Data Home Medications Medication Instructions Recorded Confirmed epinephrine 0.3 mg IM ONCE #2 each 01/08/19 09/12/19 ondansetron 4 mg PO Q8H #10 tab 08/11/19 09/12/19 acetaminophen 650 mg PO PRN PRN 09/12/19 09/12/19 gabapentin [Neurontin] 100 mg PO TID #60 cap 09/12/19 ibuprofen 400 mg PO Q6H PRN 09/12/19 09/12/19 Previous Rx's Medication Instructions Recorded epinephrine 0.3 mg IM ONCE #2 each 01/08/19 ondansetron 4 mg PO Q8H #10 tab 08/11/19 gabapentin [Neurontin] 100 mg PO TID #60 cap 09/12/19 Allergies Allergy/AdvReac Type Severity Reaction Status Date / Time codeine AdvReac Intermediate vomitting Verified 09/12/19 17:02 General Stated Complaint: GenMedical MARK: 3 Review of Systems All systems reviewed & are unremarkable except as noted in HPI and below Constitutional Constitutional: Reports fever(s) and Reports weakness ENT Ears, Nose, Mouth, and Throat: Reports as per HPI, Reports otalgia and Denies nasal discharge Respiratory Respiratory: Denies cough Integumentary/Breasts Skin/Breast: Denies rash Neurologic Neurologic: Reports weakness [facility] Medical History Hypoglycemia (Chronic) Upper abdominal pain of unknown etiology (Acute) Oinkv-Msoftczle-Gaouq (WPW) syndrome (Acute) Ablasion done @ age 16 [facility] [place] Surgical History H/O cardiac radiofrequency ablation (Acute) H/O tubal ligation (Chronic) Social History Smoking/Tobacco Use Status: Current every day Tobacco Type: cigarettes Alcohol Intake: current Alcohol Intake frequency: a few times a month Drug use: Never Substance use type: does not use Household members: family Do you feel safe at home: Yes Do you feel safe in your relationship?: Yes Exam Const General: cooperative and no acute distress [facility] Head: normocephalic and atraumatic Ears: TM normal on the right, EAC's normal (Right), mastoids normal on the right and no periauricular adenopathy General nose exam: external nose normal and nares normal Face and sinus: normal facial exam, face symmetric, no erythema and no edema Mouth: oral mucosae normal and moist mucous membranes Teeth and gingiva: caries Throat: posterior oropharynx normal, uvula midline, no peritonsillar masses and no uvular edema Eyes Conjunctivae: normal conjunctivae Sclera: normal sclerae Neck Neck: no lymphadenopathy, trachea midline and supple Thyroid: thyroid normal Resp Auscultation: clear to auscultation bilaterally, no rales, no rhonchi and no wheezes Cardio Jugular venous pressure: no JVD Rate: regular rate and not tachycardic Rhythm: regular rhythm GI Palpation: soft, not firm, no guarding, no masses, not rigid and nontender Skin General skin exam: no rashes or lesions noted Neuro General: alert, awake and tone normal Cranial Nerves: facial strength normal Speech: speech normal Extrem General: no edema Psych Appearance: grossly normal Affect: anxious affect Course Vital Signs Vital signs: Vital Signs Temperature 36.7 C 09/12/19 16:56 Pulse 79 09/12/19 16:56 Respiratory Rate 18 09/12/19 16:56 Blood Pressure 161/86 H 09/12/19 16:56 Pulse Oximetry 97 09/12/19 16:56 Temperature 36.7 C 09/12/19 16:56 Temperature Source Skin 09/12/19 16:56 Pulse 79 09/12/19 16:56 Respiratory Rate 16 09/12/19 17:56 Respiratory Effort 09/12/19 17:56 Respiratory Depth Normal 09/12/19 17:56 Respiratory Pattern Normal 09/12/19 17:56 Blood Pressure 161/86 H 09/12/19 16:56 Blood Pressure Position Sitting 09/12/19 16:56 Pulse Oximetry 97 09/12/19 16:56 Oxygen Delivery Method Room Air 09/12/19 16:56 Oxygen Flow Rate 0 09/12/19 16:56 Pain Level 8 09/12/19 16:56 Comment 09/12/19 16:56 Lab/Test Results Lab/Test Results: Laboratory Tests Range/Units 09/12/19 09/12/19 17:43 17:43 WBC (4.4-10.8) k/cumm 9.70 RBC (4.00-5.20) m/cumm 4.32 Hgb (12.0-15.5) g/dL 13.4 Hct (36.0-46.0) % 40.3 MCV (80-95) fL 93.3 MCH (27.0-33.0) pg 31.0 MCHC (32.0-36.0) g/dL 33.3 RDW (11.7-14.6) % 13.6 Plt Count (130-400) x1000/uL 254 MPV (8.0-11.0) fL 10.4 Immature Gran % 0.2 Neutrophils % 68.4 Lymphocytes % 23.2 Monocytes % 7.5 Eosinophils % 0.6 Basophils % 0.1 Absolute Neutrophils (1.2-6.7) k/cumm 6.63 Absolute Lymphocytes (1.2-3.4) k/cumm 2.25 Absolute Monocytes (0.11-0.7) k/cumm 0.73 H Absolute Eosinophils (0.0-0.7) k/cumm 0.06 Absolute Basophils (0.0-0.2) k/cumm 0.01 Sodium (136-145) mmol/L 140 Potassium (3.5-5.1) mmol/L 4.1 Chloride (98-107) mmol/L 106 Carbon Dioxide (21.0-32.0) mmol/L 26.1 Anion Gap (3-11) mmol/L 7.9 BUN (7-18) mg/dL 21 H Creatinine (0.55-1.02) mg/dL 0.94 Estimated GFR/1.73 m2 (mL/min/1.73m2) >= 60.00 Glucose (70-100) mg/dL 86 Calcium (8.5-10.1) mg/dL 9.2 Total Bilirubin (0.2-1.0) mg/dL 0.3 AST (15-37) U/L 15 ALT (14-59) U/L 31 Alkaline Phosphatase (46-116) U/L 58 Total Protein (6.4-8.2) g/dL 7.7 Albumin (3.4-5.0) g/dL 4.2 TSH (0.36-3.74) uIU/mL 8.37 H Free T4 (0.76-1.46) ng/dL 1.05
[2019-09-12] MEDS: Gabapentin 100 MG CAP PO (20:49)
[2019-09-12 21:02] VITALS: BP 118/98; PULSE 75; RESP 16; TEMP 36.9; O2SAT 98
--- NOTE | 2019-09-12 21:05 | NUR.NOTE ---
Nursing Note: Upon discharge from ED patient was very pleased with her care. Stated she felt better on discharge home than she has in several days. Pt stated, she wanted to go home and rest now that her pain was decreased. Patient was able to change back into her street clothes without assistance. Pt then exited ED without any concerns.
== END 2019-09-12 20:50 | disposition home or self-care (01) ==
PROVIDERS: Emergency Provider Student in an Organized Health Care Education/Training Program; PCP Nurse Practitioner Family
DX: M54.2 Cervicalgia (principal); R07.9 Chest pain, unspecified
CPT/HCPCS: 36415; 70491; 80053; 96360; 99285; 71260; 84439; 84443; 85025; 99284; J1100; J3490

== ENCOUNTER 2019-09-17 01:14 | Emergency (ER) | payer MEDICAID, SELFPAY ==
[2019-09-17 01:21] VITALS: BP 162/93; PULSE 110; RESP 20; TEMP 36.9; O2SAT 100
--- NOTE | 2019-09-17 01:22 | ED.GENADUL_ITS ---
Discharge Plan Disposition Patient Disposition: HOME Condition: Good Discharge Details Chief Complaint: DentalOral Clinical Impression: Right facial pain Primary Care Provider: Jose J Lua ED Provider: Simon De La Paz [place] Meds and New Rx's Prescriptions: New Hydrocodone/Apap 5/325, 4 Tab [[place] 5/325, 4 Tabs/Btl] 1 tab PO BID Qty: 0 RF: 0 Continued acetaminophen 325 mg Tablet 650 mg PO PRN PRNRF: 0 ibuprofen 200 mg Tablet 400 mg PO Q6H PRNRF: 0 amitriptyline 25 mg Tablet 25 mg PO QHS RF: 0 epinephrine 0.3 mg/0.3 mL syringe 0.3 mg IM ONCE Qty: 2 RF: 0 ondansetron 4 mg tablet,disintegrating 4 mg PO Q8H Qty: 10 RF: 0 Discharge Instructions Additional Instructions: Suspect this is neuropathic pain and specifically trigeminal neuralgia. Will pr escribe Vicodin short-term for pain control over the next day. Suggest you should probably be on Tegretol and referred to neurologist for evaluation. Please contact primary care in the morning. Return to ED for fever, facial swelling, rash, other changes or concerns. Referrals: Jose J Lua, [employer] [Primary Care Provider] - Medical Decision Making I have reviewed her previous ED visit as well as her office visit. I am in agreement that I think this is neuropathic pain. I suspect trigeminal neuralgia. She has pretty significant hyperparesthesia and pain with just gentle stroking of the face. Recommend Tegretol but will hold this and have her discuss with primary care. Here will give hydrocodone/acetaminophen as well as 4 to go home with. I did review the [place] prescription monitoring site. She has previously received 4 hydrocodone/acetaminophen almost a year ago but nothing else. We will have her contact primary care in the morning for further management. Consider referral to neurology. HPI General Mode of arrival: ambulatory . Date/Time Provider Initiated Documentation: 09/17/19 01:18 . Limitations to Documentation: no limitations . Information obtained by: patient, RN notes reviewed and old records reviewed . HPI Narrative: Patient presents to ED with continued severe right facial pain. She has had this pain for 2 months now. She reports that it started after a tooth extraction. She has been on multiple rounds of antibiotics. She has been back to the dentist a number of times. She has been seen both at [facility] and ours with imaging studies done which are negative for any infection or bony disease. She was seen here last week and started on gabapentin which made her n auseated and primary care stopped it. She was started on amitriptyline which is not helping. She has been referred to ear nose and throat but does not see them until September. She had no fever. She has no rash. She has no headache. Pain radiates from the tragus of the ear along the mandible and somewhat down into the neck. She has been unable to tolerate the pain and is here tonight crying because of discomfort. Related Data Home Medications Medication Instructions Recorded Confirmed epinephrine 0.3 mg IM ONCE #2 each 01/08/19 09/17/19 ondansetron 4 mg PO Q8H #10 tab 08/11/19 09/17/19 acetaminophen 650 mg PO PRN PRN 09/12/19 09/17/19 ibuprofen 400 mg PO Q6H PRN 09/12/19 09/17/19 HYDROcodone/APAP 5/325, 4 tab 1 tab PO BID #0 09/17/19 [[place] 5/325, 4 tabs/btl] amitriptyline 25 mg PO QHS 09/17/19 09/17/19 Previous Rx's Medication Instructions Recorded epinephrine 0.3 mg IM ONCE #2 each 01/08/19 ondansetron 4 mg PO Q8H #10 tab 08/11/19 HYDROcodone/APAP 5/325, 4 tab 1 tab PO BID #0 09/17/19 [[place] 5/325, 4 tabs/btl] Allergies Allergy/AdvReac Type Severity Reaction Status Date / Time codeine AdvReac Intermediate vomitting Verified 09/17/19 01:25 General MARK: 3 Review of Systems Narrative: As documented in HPI otherwise negative as below. Const: no fever, chills, weakness Resp: no cough, SOB, pleuritic pain CV: no CP, diaphoresis, edema, syncope GI: no abdominal pain, nausea, vomiting, diarrhea Neuro: no headache, numbness, focal weakness, confusion [facility] Medical History GERD (gastroesophageal reflux disease) (Chronic) Eskfw-Sgwxbluum-Dhswi (WPW) syndrome (Acute) [place] age 16 [facility] [place] H/O cardiac radiofrequency ablation (Acute) H/O tubal ligation (Chronic) History of section (Chronic) Social History Smoking/Tobacco Use Status: Current every day Tobacco Type: cigarettes Alcohol Intake: current Alcohol Intake frequency: a few times a month Drug use: Never Substance use type: does not use Household members: family Do you feel safe at home: Yes Do you feel safe in your relationship?: Yes Exam Const General: in distress (Crying because of right facial pain.) Orientation: alert and oriented x3 HENMT Head: normocephalic and atraumatic Ears: external ears normal, TM's normal bilaterally and EAC's normal General nose exam: external nose normal Face and sinus: face symmetric, no erythema, no edema and other (Pain along right mandible, cheek with just gentle stroking of the skin.) Mouth: oral mucosae normal, lip normal and tongue normal Teeth and gingiva: gingiva normal Eyes Conjunctivae: conjunctivae normal Sclera: sclerae normal Pupils: PERRL EOM: EOM intact bilaterally Neck Neck: trachea midline, supple and no anterior neck swelling Resp Effort & Inspection: normal respiratory effort Skin General skin exam: no erythema Rashes: no rashes Neuro General: alert, oriented x3, gait normal, no focal motor deficits and CN's II-XI intact bilaterally Sensory Exam: other (Hyperparesthesia right cheek and jaw.)
[2019-09-17] MEDS: HYDROcodone 5/Acetaminophen 325 TAB PO (01:53)
[2019-09-17 01:59] VITALS: PULSE 94; RESP 20; O2SAT 100
--- NOTE | 2019-09-17 14:39 | NUR.NOTE ---
Nursing Note: Referral reminder faxed to Neurology for follow up appt. Lin Mckeon.
== END 2019-09-17 02:00 | disposition home or self-care (01) ==
LOC: ER 02:03
PROVIDERS: Emergency Provider Emergency Medicine; PCP Nurse Practitioner Family
DX: R51 Headache (principal); Y84.8 Other medical procedures as the cause of abnormal reaction of the patient, or of later complication, without mention of misadventure at the time of the procedure
CPT/HCPCS: 99283

== ENCOUNTER 2019-09-17 10:29 | Emergency (ER) | payer MEDICAID, SELFPAY ==
[2019-09-17 10:36] VITALS: BP 151/81; PULSE 97; RESP 18; TEMP 36.5; O2SAT 95
--- NOTE | 2019-09-17 10:50 | ED.GENADUL_ITS ---
Discharge Plan Disposition Patient Disposition: HOME Discharge Details Chief Complaint: FacialProb Clinical Impression: Facial pain Primary Care Provider: Jose J Lua ED Provider: Tomy Alonzo Home Meds and New Rx's Prescriptions: New amitriptyline 50 mg tablet 50 mg PO QHS Qty: 30 RF: 0 prednisone 20 mg tablet See Rx Instructions .ROUTE .COMPLEX Qty: 15 RF: 0 Continued fluoxetine 20 mg capsule 20 mg PO DAILY Qty: 1 RF: 0 acetaminophen 325 mg Tablet 650 mg PO PRN PRNRF: 0 ibuprofen 200 mg Tablet 400 mg PO Q6H PRNRF: 0 Hydrocodone/Apap 5/325, 4 Tab [[place] 5/325, 4 Tabs/Btl] 1 tab PO BID Qty: 0 RF: 0 epinephrine 0.3 mg/0.3 mL syringe 0.3 mg IM ONCE Qty: 2 RF: 0 diphenhydramine HCl [Benadryl] 25 mg Capsule 25 mg PO QHS PRNRF: 0 Discontinued amitriptyline 25 mg Tablet 25 mg PO QHS RF: 0 ondansetron 4 mg tablet,disintegrating 4 mg PO Q8H Qty: 10 RF: 0 Discharge Instructions Additional Instructions: Please follow-up with Dr. Blackman on Sunday. Please contact your primary care physician to arrange follow-up. Return to the ER for any worsening or new concerning symptoms. Referrals: Jose J Lua NP [Primary Care Provider] - Daniella Blackman MD [ [facility] STAFF PHYSICIAN] - Discharge Data Discharge Date/Time-TO BE ENTERED AT DEPARTURE: 09/17/19 12:40 Medical Decision Making 11:00 --29-year-old female here with right facial pain and hyperparesthesia persistent over the past couple months post dental extraction. Now with ptosis right eye. Patient did not tolerate Neurontin. Pain refractory to NSAIDs, amitriptyline, and hydrocodone as has been prescribed. Suspect regional pain syndrome. Consider trigeminal neuralgia. Given degree of pain and pain refractory to treatments thus far, plan to consult with neurology. I have called to request consultation by neurology Dr. Blackman who will see the patient in the emergency department. 11:53 --patient evaluated by Dr. Blackman. She recommends steroid taper and increasing amitriptyline to 50 mg nightly and discharge. She will see the patient on Sunday in follow-up. 15:48 --received call from pharmacy noting interaction between fluoxetine and amitriptyline. Then will be to half dose of fluoxetine. Pharmacy will instruct patient on this. HPI General Mode of arrival: ambulatory . Date/Time Provider Initiated Documentation: 09/17/19 10:31 . Limitations to Documentation: no limitations . Information obtained by: patient . HPI Narrative: 29-year-old female presents with chief complaint of right facial pain. Patient notes she has had intermittent pain in her right face over the past 2 months. Patient states symptoms started after dental tooth extraction. Patient has been seen by an [facility] as well as [facility] multiple times and has been on multiple rounds of antibiotics for presumed dental infection post extraction. Patient was here on 09/12/2019 for right neck pain and sensation of swelling in her neck and sore throat. A CT of the neck was obtained and unremarkable. Patient was started on Neurontin. She was subsequently told to stop taking Neurontin because she had some nausea. Her primary care physician started her on amitriptyline. She was seen here last night again for persistent pain and hyperparesthesia right face. Exam was consistent with suspected trigeminal neuralgia. She was started on hydrocodone which has not helped. She called her primary care physician's office was not able to see her today and directed her back to the emergency department. Pain is currently severe and worse with any palpation of her right face. She has associated right eyelid weakness that started last night. Related Data Home Medications Medication Instructions Recorded Confirmed epinephrine 0.3 mg IM ONCE #2 each 01/08/19 09/17/19 acetaminophen 650 mg PO PRN PRN 09/12/19 09/17/19 ibuprofen 400 mg PO Q6H PRN 09/12/19 09/17/19 HYDROcodone/APAP 5/325, 4 tab 1 tab PO BID #0 09/17/19 09/17/19 [[place] 5/325, 4 tabs/btl] amitriptyline 50 mg PO QHS #30 tab 09/17/19 diphenhydramine HCl [Benadryl] 25 mg PO QHS PRN 09/17/19 09/17/19 fluoxetine 20 mg capsule 20 mg PO DAILY #1 cap 09/17/19 09/17/19 prednisone See Rx Instructions .ROUTE 09/17/19 .COMPLEX #15 tab Previous Rx's Medication Instructions Recorded epinephrine 0.3 mg IM ONCE #2 each 01/08/19 HYDROcodone/APAP 5/325, 4 tab 1 tab PO BID #0 09/17/19 [[place] 5/325, 4 tabs/btl] amitriptyline 50 mg PO QHS #30 tab 09/17/19 fluoxetine 20 mg capsule 20 mg PO DAILY #1 cap 09/17/19 prednisone See Rx Instructions .ROUTE 09/17/19 .COMPLEX #15 tab Allergies Allergy/AdvReac Type Severity Reaction Status Date / Time codeine AdvReac Intermediate vomitting Verified 09/17/19 10:40 General Stated Complaint: FacialProb MARK: 3 Review of Systems All systems reviewed & are unremarkable except as noted in HPI and below Constitutional Constitutional: Denies fever(s) and Denies headache(s) ENT Ears, Nose, Mouth, and Throat: Denies headache(s), Denies neck mass and Denies sore throat Respiratory Respiratory: Denies cough Neurologic Neurologic: Reports as per HPI and Denies headache(s) [facility] Medical History GERD (gastroesophageal reflux disease) (Chronic) Brkyw-Zvyxafxbr-Mytzo (WPW) syndrome (Acute) Ablasion done @ age 16 [facility] [place] Surgical History H/O cardiac radiofrequency ablation (Acute) H/O tubal ligation (Chronic) History of section (Chronic) Social History Smoking/Tobacco Use Status: Current every day Tobacco Type: cigarettes Alcohol Intake: current Alcohol Intake frequency: a few times a month Drug use: Never Substance use type: does not use Household members: family Number of 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 Do you feel safe at home: Yes Do you feel safe in your relationship?: Yes Additional Social history: 2 children biological; 2 step Exam Const General: cooperative and no acute distress HENMT Head: normocephalic Ears: TM normal on the right and mastoids normal General nose exam: external nose normal Mouth: moist mucous membranes Teeth and gingiva: other (No dental abscess appreciated) Throat: posterior oropharynx normal Other: Right face severely tender even to light palpation Eyes Conjunctivae: normal conjunctivae Sclera: normal sclerae EOM: EOM intact bilaterally Neck Neck: trachea midline and supple Resp Auscultation: clear to auscultation bilaterally, no rales, no rhonchi and no wheezes Cardio Jugular venous pressure: no JVD Rate: regular rate and not tachycardic Rhythm: regular rhythm GI Palpation: soft, not firm, no guarding, no masses, not rigid and nontender Skin General skin exam: no rashes or lesions noted Neuro General: alert, awake, oriented x3 and tone normal Cranial Nerves: PERRL, accommodation normal, EOM intact bilaterally, no nystagmus, tongue midline, able to rotate head bilaterally, able to elevate shoulders bilaterally, Symmetric palate elevation and other (Right ptosis) Cognition: normal cognition Speech: speech normal Gait: normal gait Motor: strength 5/5 throughout Sensory Exam: no sensory deficits noted and other (Hyperparesthesia right face) Extrem General: no edema Psych Mood: anxious mood Course Vital Signs Vital signs: Vital Signs Temperature 36.5 C 09/17/19 10:36 Pulse 97 H 09/17/19 10:36 Respiratory Rate 18 09/17/19 10:36 Blood Pressure 151/81 H 09/17/19 10:36 Pulse Oximetry 95 09/17/19 10:36 Temperature 36.5 C 09/17/19 10:36 Temperature Source Temporal Artery Scan 09/17/19 10:36 Pulse 97 H 09/17/19 10:36 Respiratory Rate 18 09/17/19 10:36 Respiratory Effort Non-Labored 09/17/19 10:39 Blood Pressure 151/81 H 09/17/19 10:36 Blood Pressure Position Sitting 09/17/19 10:36 Pulse Oximetry 95 09/17/19 10:36 Oxygen Delivery Method Room Air 09/17/19 10:36 Oxygen Flow Rate 0 09/17/19 10:36 Pain Level 9 09/17/19 10:36
[2019-09-17] MEDS: predniSONE 20 MG TAB 60 MG PO (12:30)
[2019-09-17 12:45] VITALS: BP 156/99; PULSE 109; RESP 20; TEMP 36.6; O2SAT 97
== END 2019-09-17 12:40 | disposition home or self-care (01) ==
LOC: ER 11:55
PROVIDERS: Emergency Provider Student in an Organized Health Care Education/Training Program; PCP Nurse Practitioner Family
DX: R51 Headache (principal); R20.3 Hyperesthesia; H02.401 Unspecified ptosis of right eyelid; Y84.8 Other medical procedures as the cause of abnormal reaction of the patient, or of later complication, without mention of misadventure at the time of the procedure
CPT/HCPCS: 93005; 99283; 93010; J7512

== ENCOUNTER 2019-09-18 13:21 | Emergency (ER) | payer MEDICAID, SELFPAY ==
[2019-09-18 13:28] VITALS: BP 150/82; PULSE 105; RESP 16; TEMP 37.1; O2SAT 95
[2019-09-18] MEDS: Ketorolac 60 MG/2 ML VIAL 30 MG IM (14:11)
[2019-09-18 15:53] VITALS: BP 130/88; PULSE 99; RESP 16; O2SAT 97
--- NOTE | 2019-09-18 15:55 | W.ED.GENAD ---
Discharge Plan Disposition Patient Disposition: HOME Condition: Good Discharge Details Chief Complaint: FacialProb Clinical Impression: Acute facial pain Primary Care Provider: Jose J Lua ED Provider: Alexandra Pereira Home Meds and New Rx's Prescriptions: New pregabalin [Lyrica] 25 mg capsule 25 mg PO BID Qty: 20 RF: 0 No Action fluoxetine 20 mg capsule 20 mg PO DAILY Qty: 1 RF: 0 acetaminophen 325 mg Tablet 650 mg PO PRN PRNRF: 0 ibuprofen 200 mg Tablet 400 mg PO Q6H PRNRF: 0 Hydrocodone/Apap 5/325, 4 Tab [Langley 5/325, 4 Tabs/Btl] 1 tab PO BID Qty: 0 RF: 0 epinephrine 0.3 mg/0.3 mL syringe 0.3 mg IM ONCE Qty: 2 RF: 0 diphenhydramine HCl [Benadryl] 25 mg Capsule 25 mg PO QHS PRNRF: 0 amitriptyline 50 mg tablet 50 mg PO QHS Qty: 30 RF: 0 prednisone 20 mg tablet See Rx Instructions .ROUTE .COMPLEX Qty: 15 RF: 0 Discharge Instructions Additional Instructions: Follow-up closely with her primary care doctor. Follow-up as scheduled with ENT unless able to get in for cancellation appointment sooner. Follow-up on Sunday with neurology as scheduled. Use Lyrica for pain management. This will cause mild fatigue. Return for any worsening, concerns or alarming symptoms sooner if needed Stand Alone Forms: Work Release Discharge Data Discharge Date/Time-TO BE ENTERED AT DEPARTURE: 09/18/19 16:03 Medical Decision Making This is a 29-year-old patient who is being seen in the emergency room for the fourth time in a week. Patient was seen at their PCP office today's. I spoke with PCP Jose J, who reports patient is being seen for side effects of the previously prescribed amitriptyline. She was recommended to double her dose. Patient reports when doubling her dose medication side effects become intolerable specifically she reports palpitations. 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 Patient would like to discontinue the amitriptyline. Patient has been evaluated several times this week for complaints of right-sided facial pain which she reports intermittent swelling of the eye as well as lateral to the jaw. Patient reports no associated fevers or chills. Patient reports onset of pain 2 months ago. She has had several visits with her dentist. He has as previously discussed 3 emergency [address] visits including CT scans of head neck and chest without acute findings explaining her pain. Patient has had mono testing in [place] which was unremarkable. Patient reports she has tried outpatient narcotics which were on relieving of her pain. Patient reports gabapentin as well as amitriptyline without relief. No relief with zprt-bae-fyoiwhl Tylenol or Motrin. Patient reports symptoms do wax and wane. When in the emergency room most recently she was also evaluated by neurology. Patient does have plan of care to follow with neurology as well as ear nose and throat. Schedule appointment in place. Patient was seen at PCP office today who was concerned with her persistence of pain. Recommend she come to the emergency room for further evaluation. The report I received from PCP was to consider admission for intractable pain. I spoke with this patient regarding planning of care. Patient has no desire to be admitted to the hospital at this time. Patient reports she does not want additional evaluation in the emergency room and she would prefer discharge home. Patient does report she does not want to take amitriptyline any longer. Patient is only interested in finding pain management. Spoke with Daniella Blackman who had evaluated the patient already. Discussed medication management. She recommended Lyrica at this point 25 mg twice daily trial in place of amitriptyline. Patient is agreeable to this plan of care. I attempted to get patient into her ENT appointment sooner but given next week is Thanksgiving the office is closed for the week therefore appointment is 29 September which is the soonest they have available. Patient did report temporary relief with Toradol injection. Patient seemingly was more comfortable on reevaluation. Patient consents to use of Lyrica. Patient is requesting discharge home at this time as she does not want any further intervention and declines admission to the hospital for further evaluation including MRI as well as pain management. Will provide prescription for Lyrica and discharged home with plan of care as outpatient follow-up. The patient was stable and requested discharge. Prior to discharge, my usual and customary return precautions were reviewed with the patient - this included follow-up instructions and reasons to return to the Emergency Department if conditions worsens, does not improve as expected, or other new concerns arise. HPI General Date/Time Provider Initiated Documentation: 11/21/19 13:33. HPI Narrative: This is a 29-year-old patient who presents for her fourth emergency room visit this week. Patient has been complaining of right-sided facial pain. Patient has had multiple evaluations, CT scan of head neck and chest. Neurology exam with Dr. Daniella Blackman. She is scheduled to follow-up with neurology as well as ENT. Patient has tried Vicodin for pain relief of the right-sided facial pain. She has started amitriptyline as well as gabapentin. Patient was advised of her amitriptyline dose. Patient reports she cannot tolerate amitriptyline dosing. She reports palpitations and unwanted side effects. Patient is also taking steroids which may be attributing to restless side effects she has been experiencing. Patient was seen by PCP today in follow-up and for complaints of medication side effects. Patient has had difficulty managing her pain. Per her PCP she was sobbing and complaining of pain therefore they recommended she came to the emergency room for possible intractable pain admission as oral medications are on relieving of her pain as an outpatient. Patient does not desire admission to the hospital at this time. Patient reports she is only looking for medication reevaluation. Patient reports symptoms began approximately 2 months ago. She has been experiencing persistent right-sided facial pain. Patient reports intermittent swelling of her face specifically she reports swelling lateral to her eye, her cheek beneath her jawline. All symptoms have been on the right. Patient has no associated skin rashes. Pain is constant. Related Data Home Medications Medication Instructions Recorded Confirmed epinephrine 0.3 mg IM ONCE #2 each 01/08/19 09/18/19 acetaminophen 650 mg PO PRN PRN 09/12/19 09/18/19 ibuprofen 400 mg PO Q6H PRN 09/12/19 09/18/19 HYDROcodone/APAP 5/325, 4 tab 1 tab PO BID #0 09/17/19 09/18/19 [Langley 5/325, 4 tabs/btl] amitriptyline 50 mg PO QHS #30 tab 09/17/19 09/18/19 diphenhydramine HCl [Benadryl] 25 mg PO QHS PRN 09/17/19 09/18/19 fluoxetine 20 mg capsule 20 mg PO DAILY #1 cap 09/17/19 09/18/19 prednisone See Rx Instructions .ROUTE 09/17/19 09/18/19 .COMPLEX #15 tab pregabalin [Lyrica] 25 mg PO BID #20 cap 09/18/19 Previous Rx's Medication Instructions Recorded epinephrine 0.3 mg IM ONCE #2 each 01/08/19 HYDROcodone/APAP 5/325, 4 tab 1 tab PO BID #0 09/17/19 [Langley 5/325, 4 tabs/btl] amitriptyline 50 mg PO QHS #30 tab 09/17/19 fluoxetine 20 mg capsule 20 mg PO DAILY #1 cap 09/17/19 prednisone See Rx Instructions .ROUTE 09/17/19 .COMPLEX #15 tab pregabalin [Lyrica] 25 mg PO BID #20 cap 09/18/19 Allergies Allergy/AdvReac Type Severity Reaction Status Date / Time codeine AdvReac Intermediate vomitting Verified 09/18/19 13:32 General Stated Complaint: FacialProb MARK: 3 Review of Systems All systems reviewed & are unremarkable except as noted in HPI and below Constitutional Constitutional: Denies chills and Denies fever(s) ENT Ears, Nose, Mouth, and Throat: Denies ear discharge, Reports otalgia, Reports facial pain, Denies nasal discharge, Denies sinus pressure, Denies sore throat and Denies throat swelling Cardiovascular Cardiovascular: Denies dyspnea Respiratory Respiratory: Denies cough, Denies pain on inspiration, Denies pain with cough and Denies dyspnea Gastrointestinal Gastrointestinal: Denies nausea and Denies vomiting Allergic/Immunologic Allergic/Immunologic: Denies throat swelling [facility], [facility] Medical History GERD (gastroesophageal reflux disease) (Chronic) Qezpt-Xljhtcmqm-Qfyda (WPW) syndrome (Acute) Ablasion done @ age 16 [facility] [place] Social History Smoking/Tobacco Use Status: Current every day Tobacco Type: cigarettes Alcohol Intake: current Alcohol Intake frequency: a few times a month Drug use: Never Substance use type: does not use Household members: family Number of 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 Well hydrated. Alert and alert. HENMT: Head nomocephalic, normal to inspection. Atraumatic. Hearing grossly normal. External ear canal no erythema or swelling. TM normal bilaterally. Nose normal to inspection. No rhinnorhea. Normal facial exam. Oral mucosa normal. Tounge normal. Dentition normal. Normal posterior oropharynx. Uvula midline. Mild fullness of beneath right angle of the jaw. EYES: General normal appearance. Alignment normal. Eyelids normal. Conjunctiva normal. Sclera normal. PERRL. No ptosis. Extraocular movements intact. No nystagmus NECK: Normal visual inspection. FROM. No lymphadenopathy. Trachea midline. No Midline tenderness. CHEST: Normal insepection of the chest. RESP: Normal respiratory effort. Speaking full sentences. No cough. No wheezing. No retractions. Clear to auscaltation. Breath sound equal and present bilaterally. CARDIO: No JVD. Normal PMI. Regular Rate. Regular Rhythm. Normal peripheral pulses. MUSCULOSKELETAL: Normal Gait. FROM of all extremities. Distal neurovascularly intact. Sensation intact distally. SKIN: Normal. Dry. No rashes. NEURO: Alert and awake. Speech clear. Alert and oriented x 3. Speech is clear. Cranial nerves intact as tested III - XI. Normal Bcjsab-lz-toiu test. No pronator drift. Normal heel-cortez test. No Nystagmus. Gait normal. Strength intact in all extremities. Sensation intact in all extremities. PSYCH: Normal affect. Cooperative. Course Vital Signs Vital signs: Vital Signs Temperature 37.1 C 09/18/19 13:28 Pulse 105 H 09/18/19 13:28 Respiratory Rate 16 09/18/19 13:28 Blood Pressure 150/82 H 09/18/19 13:28 Pulse Oximetry 95 09/18/19 13:28 Temperature 37.1 C 09/18/19 13:28 Temperature Source Skin 09/18/19 13:28 Pulse 105 H 09/18/19 13:28 Respiratory Rate 16 09/18/19 13:28 Respiratory Effort Non-Labored 09/18/19 13:28 Blood Pressure 150/82 H 09/18/19 13:28 Blood Pressure Position Sitting 09/18/19 13:28 Pulse Oximetry 95 09/18/19 13:28 Oxygen Delivery Method Room Air 09/18/19 13:28 Oxygen Flow Rate 0 11/21/19 13:28 Pain Level 9 09/18/19 14:11
== END 2019-09-18 16:03 | disposition home or self-care (01) ==
PROVIDERS: Emergency Provider Physician Assistant; PCP Nurse Practitioner Family
DX: R51 Headache (principal); R22.0 Localized swelling, mass and lump, head; R00.2 Palpitations; T43.015A Adverse effect of tricyclic antidepressants, initial encounter; I45.6 Pre-excitation syndrome
CPT/HCPCS: 93005; 96372; 99284; 93010; J1885

== ENCOUNTER 2020-01-21 20:24 | Emergency (ER) | payer MEDICAID, SELFPAY ==
[2020-01-21 20:35] VITALS: BP 142/87; PULSE 68; RESP 16; TEMP 37.4; O2SAT 98
[2020-01-21 21:38] LABS: Abs Immature Grans 0.06 k/cumm (0.0-0.09); Absolute Basophil Count 0.02 k/cumm (0.0-0.2); Absolute Eosinophil Count 0.12 k/cumm (0.0-0.7); Absolute Lymphocyte Count 2.43 k/cumm (1.2-3.4); Absolute Monocyte Count 0.56 k/cumm (0.11-0.7); Absolute Neutrophil Count 5.13 k/cumm (1.2-6.7); Basophils % 0.2; Eosinophils % 1.4; HGB 12.6 g/dL (12.0-15.5); Immature Grans % 0.7 %; Lymphocytes % 29.2; Mean Corp. HGB Concentration 33.2 g/dL (32.0-36.0); Mean Corpuscular Volume 93.4 fL (80-95); Mean Platelet Volume 10.4 fL (8.0-11.0); Monocytes % 6.7; Neutrophils % 61.8; Platelet Count 268 x1000/uL (130-400); RBC 4.07 m/cumm (4.00-5.20); RBC Distribution Width 12.7 % (11.7-14.6); White Blood Cell Count 8.32 k/cumm (4.4-10.8)
[2020-01-21 21:59] LABS: INR 0.9 (0.9-1.1); PTT Activated 23.7 sec (21.0-31.4); Prothrombin Time 9.5 sec (9.3-11.0)
[2020-01-21 22:03] LABS: ALT 28 U/L (14-59); AST 13 U/L (15-37); Albumin 3.6 g/dL (3.4-5.0); Alkaline Phosphatase 59 U/L (46-116); Anion Gap 10.6 mmol/L (3-11); BUN 17 mg/dL (7-18); Bilirubin, Total 0.2 mg/dL (0.2-1.0); CO2 26.4 mmol/L (21.0-32.0); CREATININE 0.98 mg/dL (0.55-1.02); Calcium 9.9 mg/dL (8.5-10.1); Chloride 105 mmol/L (98-107); Glucose 92 mg/dL (74-106); Potassium 4.1 mmol/L (3.5-5.1); Sodium 142 mmol/L (136-145); Total Protein 7.3 g/dL (6.4-8.2)
--- NOTE | 2020-01-21 22:27 | W.ED.GENAD ---
Discharge Plan Disposition Patient Disposition: HOME Condition: Stable Discharge Details Chief Complaint: Vascular Clinical Impression: Acute leg pain Primary Care Provider: Jose J Lua ED Provider: Alexandra Pereira Home Meds and New Rx's Prescriptions: No Action pregabalin [Lyrica] 25 mg capsule 25 mg PO BID RF: 0 prednisone 5 mg tablet 5 mg PO DAILY Qty: 10 RF: 0 acetaminophen 325 mg Tablet 650 mg PO PRN PRNRF: 0 ibuprofen 200 mg Tablet 400 mg PO Q6H PRNRF: 0 epinephrine 0.3 mg/0.3 mL syringe 0.3 mg IM ONCE Qty: 2 RF: 0 diphenhydramine HCl [Benadryl] 25 mg Capsule 25 mg PO QHS PRNRF: 0 Discharge Instructions Instructions: Leg Pain (ED) Additional Instructions: Tylenol for soreness if needed. Avoid use of ibuprofen Motrin Advil, Aleve or aspirin for the next 24 hours as you received a dose of blood thinner tonight as discussed. Rest activities as tolerated. Elevate leg if needed. Follow-up with ultrasound in radiology tomorrow. Ultrasound should call in the morning if not please feel free to call phone numbers on copy of the order which was provided to you. Return to the emergency room after your ultrasound for results Recheck with your PCP for any persistence of symptoms lasting greater than 5 to 7 days as discussed. Return sooner for any worsening, concerns or alarming symptoms if needed Medical Decision Making This is a 29-year-old patient presenting the emergency room for concern of possible DVT due to family history of blood clots. Patient reports right leg pain which developed today. Patient reports a small dime sized area in the calf which was notably uncomfortable today without any associated injury or trauma. Patient reports his pain progressed to involve the right popliteal area then reported onset of pain in the right posterior thigh. Patient does have mild pain elicited with palpation of these areas. There is no obvious swelling of the leg noted. Patient has sensation intact distally, full range of motion of the leg and bilaterally equal palpable pulses in the lower extremities. Patient does have mild lumbar pain on exam as well as some pain in the sciatic notch with palpation. Patient denies any recent injury or trauma. Patient denies any difficulty breathing or shortness of breath or cough. Denies any headache, dizziness or abdominal pain. Patient denies any fever, chills or drug use. Again patient predominately concerned with the possibility of DVT in the right leg. Patient also makes note that she has had mild elevated blood sugars at home in the last 2 days she is not a diabetic but does have a family history of diabetes and was concerned with her blood sugar levels being elevated. Patient did report a few episodes of vomiting in the last few days associated after eating but denies abdominal pain or bowel changes. Patient reports she was somewhat concerned with possible hypeglycemia as etiology of her vomiting. Discussed lack of ultrasound at this time night and recommended ultrasound in the morning. We discussed the use of blood thinners and patient's preference is to have anticoagulant this evening due to her family history. We did discuss the option of x-ray of her lower back at this time given the lumbar pain elicited on exam however patient has no recent injury or trauma and does not feel x-ray is needed this evening. Patient's blood sugar is noted to be 98 on fingerstick. We will plan to check baseline labs prior to providing any anticoagulant as patient reports it has been years since she had her labs checked. Patient labs are unremarkable for acute abnormalities, CBC normal, CMP normal and coagulation studies normal. To discuss screening questions regarding bleeding history. Patient has no history of injury cerebral bleeding or GI bleeding, uterine bleeding. Patient denies any easy bleeding or bruising. patient provided a single dose of Lovenox for 24 hours of anticoagulation pending her ultrasound in the morning. Discussed the use of Tylenol for pain relief and avoidance of NSAIDs or aspirin as she had initial dose of Lovenox today. Patient's plan of care is to have initial protective dose of Lovenox overnight pending ultrasound evaluation tomorrow. Patient's vital signs reviewed and stable. Patient is not ill-appearing at this time. We will plan to discharge home with close follow-up with ultrasound in the morning and ultimately PCP as an outpatient. Patient agrees with this plan of care. The patient was stable and requested discharge. Prior to discharge, my usual and customary return precautions were reviewed with the patient - this included follow-up instructions and reasons to return to the Emergency Department if conditions worsens, does not improve as expected, or other new concerns arise. HPI General Date/Time Provider Initiated Documentation: 01/21/20 20:41. HPI Narrative: This is a 29-year-old patient presenting to the emergency room for onset of leg pain which developed today. Patient reports calf pain which then radiated to toward the popliteal area posteriorly in the right leg been toward the posterior right thigh. Patient denies any obvious swelling of the leg. Patient denies any injury, trauma. Patient reports the pain is described as an ache. Patient does have a history of sciatica during her and she reports that is a shooting burning pain and this is quite different than that previous experience. Patient does report chronic back pain which is somewhat worse than last few days. Patient denies fever, chills, nausea, vomiting. Denies drug use. Patient denies any numbness, tingling or weakness of the leg. Patient reports she has a significant family history of blood clots both of her aunts as well as her father have history of severe blood clots and she is concerned with similar. Patient is a smoker, denies use of control, denies cancer history, denies recent surgery, denies recent travel. Patient denies any personal history of blood clots. Related Data Home Medications Medication Instructions Recorded Confirmed epinephrine 0.3 mg IM ONCE #2 each 01/08/19 09/23/19 acetaminophen 650 mg PO PRN PRN 09/12/19 09/23/19 ibuprofen 400 mg PO Q6H PRN 09/12/19 09/23/19 diphenhydramine HCl [Benadryl] 25 mg PO QHS PRN 09/17/19 09/23/19 prednisone 5 mg tablet 5 mg PO DAILY #10 tab 09/23/19 09/23/19 pregabalin 25 mg capsule 25 mg PO BID cap 09/23/19 09/23/19 Previous Rx's Medication Instructions Recorded epinephrine 0.3 mg IM ONCE #2 each 01/08/19 prednisone 5 mg tablet 5 mg PO DAILY #10 tab 09/23/19 Allergies Allergy/AdvReac Type Severity Reaction Status Date / Time codeine AdvReac Intermediate vomitting Verified 09/23/19 11:23 amitriptyline AdvReac tachycardia Verified 09/23/19 11:27 General Stated Complaint: Vascular MARK: 4 Review of Systems All systems reviewed & are unremarkable except as noted in HPI and below Constitutional Constitutional: Denies chills, Denies fatigue, Denies fever(s), Denies headache(s) and Denies malaise ENT Ears, Nose, Mouth, and Throat: Denies headache(s) Neurologic Neurologic: Denies headache(s) Endocrine Endocrine: Denies fatigue [facility] Medical History GERD (gastroesophageal reflux disease) (Chronic) Status post placement of implantable loop recorder (Acute) Brarr-Psltshgdk-Sdbhv (WPW) syndrome (Acute) [place] 16 [facility] [place] History Smoking/Tobacco Use Status: Current every day Tobacco Type: cigarettes Alcohol Intake: current Alcohol Intake frequency: a few times a month Drug use: Never Substance use type: does not use Household members: family Number of 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 Well hydrated. Alert and oriented. HENMT: Head nomocephalic, normal to inspection. Atraumatic. Hearing grossly normal. EYES: General normal appearance. Alignment normal. Eyelids normal. Conjunctiva normal. NECK: Normal visual inspection. FROM. Trachea midline. No Midline tenderness. CHEST: Normal insepection of the chest. RESP: Normal respiratory effort. Speaking full sentences. No cough. No audible wheezing. No retractions. CARDIO: No JVD. No murmurs. Regular rate and rhythm Back: No cervical, thoracic pain with palpation. Mild lumbar tenderness over the midline lower back. No overlying skin changes. Mild paraspinal tenderness noted in the lumbar area. MUSCULOSKELETAL: Normal Gait. FROM of all extremities. Full range of motion of right leg. No lower extremity swelling present. Pulses intact and equal bilaterally. Patient has mild calf pain and a small area in the posterior calf with palpation no obvious swelling or overlying skin changes, swelling similar sized area of tenderness noted in the posterior popliteal area without associated joint effusion or Herrmann's cyst present. Mild again small dime size area of tenderness noted in the posterior thigh. Mild pain in the right buttocks consistent overlying the sciatic notch. No pain in the back elicited with straight leg raise SKIN: Normal. Dry. No rashes. NEURO: Alert and awake. Speech clear. PSYCH: Normal affect. Cooperative. Course Vital Signs Vital signs: Vital Signs Temperature 37.4 C 01/21/20 20:35 Pulse 68 01/21/20 20:35 Respiratory Rate 16 01/21/20 20:35 Blood Pressure 142/87 H 01/21/20 20:35 Pulse Oximetry 98 01/21/20 20:35 Temperature 37.4 C 01/21/20 20:35 Temperature Source Tympanic 01/21/20 20:35 Pulse 68 01/21/20 20:35 Respiratory Rate 16 01/21/20 20:35 Respiratory Effort 01/21/20 20:40 Blood Pressure 142/87 H 01/21/20 20:35 Blood Pressure Position Sitting 01/21/20 20:35 Pulse Oximetry 98 01/21/20 20:35 Oxygen Delivery Method Room Air 01/21/20 20:35 Oxygen Flow Rate 0 01/21/20 20:35 Pain Level 6 01/21/20 20:40 Lab/Test Results Lab/Test Results: Laboratory Tests Range/Units 01/21/20 01/21/20 01/21/20 21:30 21:30 21:30 WBC (4.4-10.8) k/cumm 8.32 RBC (4.00-5.20) m/cumm 4.07 Hgb (12.0-15.5) g/dL 12.6 Hct (36.0-46.0) % 38.0 MCV (80-95) fL 93.4 MCH (27.0-33.0) pg 31.0 MCHC (32.0-36.0) g/dL 33.2 RDW (11.7-14.6) % 12.7 Plt Count (130-400) x1000/uL 268 MPV (8.0-11.0) fL 10.4 Immature Gran % % 0.7 Neutrophils % 61.8 Lymphocytes % 29.2 Monocytes % 6.7 Eosinophils % 1.4 Basophils % 0.2 Absolute Neutrophils (1.2-6.7) k/cumm 5.13 Absolute Lymphocytes (1.2-3.4) k/cumm 2.43 Absolute Monocytes (0.11-0.7) k/cumm 0.56 Absolute Eosinophils (0.0-0.7) k/cumm 0.12 Absolute Basophils (0.0-0.2) k/cumm 0.02 PT (9.3-11.0) sec 9.5 INR (0.9-1.1) 0.9 APTT (21.0-31.4) sec 23.7 Sodium (136-145) mmol/L 142 Potassium (3.5-5.1) mmol/L 4.1 Chloride (98-107) mmol/L 105 Carbon Dioxide (21.0-32.0) mmol/L 26.4 Anion Gap (3-11) mmol/L 10.6 BUN (7-18) mg/dL 17 Creatinine (0.55-1.02) mg/dL 0.98 Estimated GFR/1.73 m2 (mL/min/1.73m2) >= 60.00 Glucose (74-106) mg/dL 92 Calcium (8.5-10.1) mg/dL 9.9 Total Bilirubin (0.2-1.0) mg/dL 0.2 AST (15-37) U/L 13 L ALT (14-59) U/L 28 Alkaline Phosphatase (46-116) U/L 59 Total Protein (6.4-8.2) g/dL 7.3 Albumin (3.4-5.0) g/dL 3.6
[2020-01-21 22:48] VITALS: BP 117/84; PULSE 100; RESP 20; TEMP 36.7; O2SAT 96
== END 2020-01-21 22:57 | disposition home or self-care (01) ==
PROVIDERS: Emergency Provider Physician Assistant; PCP Nurse Practitioner Family
DX: M79.604 Pain in right leg (principal); I45.6 Pre-excitation syndrome; F17.210 Nicotine dependence, cigarettes, uncomplicated
CPT/HCPCS: 36415; 36416; 80053; 82962; 96372; 99284; 85025; 85610; 85730; J1650

== ENCOUNTER 2020-01-22 09:09 | Outpatient (CLI) | payer MEDICAID, SELFPAY ==
--- NOTE | 2020-01-22 11:00 | DI.US_ITS ---
EXAM: US LOWER EXTREMITY VENOUS RT CLINICAL HISTORY: RT LEG PAIN, ? DVT. TECHNIQUE: Right lower extremity venous ultrasound performed using grayscale, color-flow, and spectr al Doppler analysis. COMPARISON: No exams were available for comparison FINDINGS: The right common femoral, femoral and popliteal veins demonstrate normal compressibility, augmentatio n, and color Doppler. The posterior tibial veins are patent.The saphenofemoral junction is unremarkab le. IMPRESSION: No DVT. DATA REPOSITORY:
== END 2020-01-22 09:29 ==
PROVIDERS: PCP Nurse Practitioner Family; Visit Provider Physician Assistant
DX: M79.604 Pain in right leg (principal)
CPT/HCPCS: 93971

== ENCOUNTER 2020-03-04 12:28 | Outpatient (REF) | payer MEDICAID, SELFPAY ==
[2020-03-04 17:07] LABS: Vitamin B12 262 pg/mL (193-986)
[2020-03-04 17:52] LABS: C-Reactive Protein 0.12 mg/dL (0.0-0.3)
[2020-03-04 21:32] LABS: Rheumatoid Factor <8.6 IU/mL (<12.0)
[2020-03-05 15:29] LABS: ANA Interpretation Negative (Negative)
[2020-03-09 12:41] LABS: Lyme Ab w Rflx to Lyme Confirm Negative (Negative)
== END 2020-03-04 12:48 ==
LOC: NCHCN 12:28
PROVIDERS: PCP Nurse Practitioner Family; Visit Provider Nurse Practitioner Family
DX: R51 Headache (principal); H53.9 Unspecified visual disturbance; R53.83 Other fatigue; R20.2 Paresthesia of skin
CPT/HCPCS: 85652; 87798; 82607; 86038; 86140; 86431; 86618

== ENCOUNTER 2020-03-08 22:53 | Emergency (ER) | payer MEDICAID, SELFPAY ==
[2020-03-08 22:58] VITALS: BP 127/69; PULSE 110; RESP 16; TEMP 36.6; O2SAT 100
[2020-03-08 23:00] VITALS: RESP 16
--- NOTE | 2020-03-08 23:00 | DI.RAD_ITS ---
EXAM: XR CHEST 2V PA LATERAL CLINICAL HISTORY: eval for mass. left sided tingling TECHNIQUE: 2D digital imaging was performed. COMPARISON: No exams were available for comparison FINDINGS: The heart is not enlarged. The lungs are clear and well expanded. No pleural effusion seen. Mediastin al contours appear intact. IMPRESSION: Normal chest
--- NOTE | 2020-03-08 23:20 | ED.GENADUL_ITS ---
Discharge Plan Disposition Patient Disposition: HOME Condition: Good Discharge Details Chief Complaint: GenMedical Clinical Impression: Numbness and tingling of left arm and leg Primary Care Provider: Jose J Lua ED Provider: Arcadio Breen Home Meds and New Rx's Prescriptions: Continued pregabalin [Lyrica] 25 mg capsule 25 mg PO BID RF: 0 prednisone 5 mg tablet 5 mg PO DAILY Qty: 10 RF: 0 acetaminophen 325 mg Tablet 650 mg PO PRN PRNRF: 0 ibuprofen 200 mg Tablet 400 mg PO Q6H PRNRF: 0 epinephrine 0.3 mg/0.3 mL syringe 0.3 mg IM ONCE Qty: 2 RF: 0 diphenhydramine HCl [Benadryl] 25 mg Capsule 25 mg PO QHS PRNRF: 0 Discharge Instructions Instructions: Paresthesia (ED) Additional Instructions: At this time your CT scan shows no evidence of stroke, chest x-ray is negative. Laboratory work-up is benign. I am concerned that your symptoms may be secondary to MS. I do think it is certainly reasonable to do an MRI outpatient, at some point has both your PCP and neurology have recommended. I will be copying my note to both of them. If you notice any worsening of your symptoms, or any new symptoms such as vomiting, diarrhea, fever, chills, shortness of breath, chest pain, numbness, weakness, or fainting , please return immediately to the emergency department for reevaluation. Please follow up with your primary care provider as soon as possible for reassessment and reevaluation. As always, it was a pleasure participating in your medical care today. Referrals: Jose J Lua NP [Primary Care Provider] - Daniella Blackman MD [ [facility] STAFF PHYSICIAN] - Medical Decision Making This is a 29-year-old female with a past medical history of Aghck-Rkjfqetcx-Xizsh with a loop recorder, GERD, who presents today for evaluation of left-sided weakness and tingling. The patient states that since the mid morning she noticed atypical tingling in her hand and left face, with some mild associated weakness, at 2 PM she noticed that then went to her foot as well and her leg felt mildly weak. Throughout the evening for the next 10 hours her symptoms continued. The patient in the past has had intermittent atypical symptoms of tingling and/or weakness in her face, and her arm, but this is usually been on the right. She has had an outpatient work-up based on the labs, more recently but these have otherwise returned unremarkable. She has seen Dr. Blackman for neurology who has recommended MRI however this has not yet been scheduled as it is uncertain if her loop recorder is compatible with a. Patient denies any severe chest pain, chest tightness, tearing sensation, headache, fever, chills, neck pain, falls, trauma, visual changes. She denies any new or change medications. Physical exam demonstrates a noticeable but extremely subtle difference in strength bilaterally. Left side is slightly more weak when compared to the right, however strength is still 5 out of 5. Ice bag test elicited no change. Babinski and patellar reflexes normal. Patient does note subjective difficulty in her left hand and leg for performing rapid alternating movements and [id number]. Exam is otherwise unremarkable. Differential is high for MS, low likelihood for stroke. Electrolyte abnormality also is potential but less likely. No MRI is currently available tonight at midnight. We will get a CT scan, monitor closely and reassess. I suspect that if her findings are negative she would definitely benefit from close outpatient follow- up and MRI. Currently no clinical evidence of dissection, cardiac abnormality, PE, or hemodynamic instability. 12:[address] scan and chest x-ray have returned no acute process per virtual radiology. Laboratory work-up, EKG is unremarkable. Patient states she does feel slightly improved, her symptoms seem to come and go. Signs and symptoms are definitely concerning for MS, especially over the course of the past month. I did have the patient drink in front of me without any difficulty and no signs of choking. I did discuss with the patient admission/observation to the hospital , and at this time through notable discussion, weighing the risks and benefits, utilizing a shared decision making process, and with a very clear discussion on the benefit of admission and the risks associated with both admission and discharge incl uding the unlikely but potential worst case scenario of or lifelong disability the patient has refused admission and would like to go home. Patient is of a appropriate age to make decisions. The patient is of sound mind, appears clinically sober, and has capacity to make decisions by my clinical exam. Respecting the patient's wishes, they will be discharged home. However I do feel that it is very important for close follow-up with neurology and PCP for MRI. I did contact the radiologist from [facility] and he does state that the patient would be safe and appropriate with her loop recorder as long as she just records the infor prior to the MRI. Will place neuro referral. I have extensively reviewed the treatment plan and discharge instructions with the patient. I have addressed all patient concerns at this time. The patient was made aware of what symptoms to monitor for that would warrant a return to the emergency department. Discussed the plan with the patient, they demonstrate verbal understanding and agreement with our assessment and plan at this time. EKG 00: 09 Rate 86, sinus rhythm, normal intervals, no evidence of delta wave, no signs of STEMI. No signs of Jpkqa-Wmibzszzp-Ogprr. IMPRESSION: No acute findings. Thank you for allowing us to participate in the care of your patient. Dictated and Authenticated by: Elmer Stubbs DO 03/09/2020 12:19 AM Eastern Time ([place] & [place]) we gave her very clear plan as to what would happen if she did anything other than go back and should be. Statin ordered 0.5 mg of oral or IM Ativan FINDINGS: Brain: Normal. No hemorrhage. Unremarkable white matter. No mass effect. Ventricles: Normal. No ventriculomegaly. Bones/joints: Unremarkable. No acute fracture. Sinuses: Visualized sinuses are unremarkable. No fluid levels. Mastoid air cells: Visualized mastoid air cells are well aerated. Soft tissues: Unremarkable. IMPRESSION: No acute intracranial abnormality. 0 to HPI General Date/Time Provider Initiated Documentation: 03/08/20 22:58 . HPI Narrative: This is a 29-year-old female with a past medical history of Tijbs-Utzpcigkj-Ocioq with a loop recorder, GERD, who presents today for evaluation of left-sided weakness and tingling. The patient states that since the mid morning she noticed atypical tingling in her hand and left face, with some mild associated weakness, at 2 PM she noticed that then went to her foot as well and her leg felt mildly weak. Throughout the evening for the next 10 hours her symptoms continued. The patient in the past has had intermittent atypical symptoms of tingling and/or weakness in her face, and her arm, but this is usually been on the right. She has had an outpatient work-up based on the labs, more recently but these have otherwise returned unremarkable. She has seen Dr. Blackman for neurology who has recommended MRI however this has not yet been scheduled as it is uncertain if her loop recorder is compatible with a. Patient denies any severe chest pain, chest tightness, tearing sensation, headache, fever, chills, neck pain, falls, trauma, visual changes. She denies any new or change medications. No other complaints at this time. No other modifying factors. Related Data Home Medications Medication Instructions Recorded Confirmed epinephrine 0.3 mg IM ONCE #2 each 01/08/19 09/23/19 acetaminophen 650 mg PO PRN PRN 09/12/19 09/23/19 ibuprofen 400 mg PO Q6H PRN 09/12/19 09/23/19 diphenhydramine HCl [Benadryl] 25 mg PO QHS PRN 09/17/19 09/23/19 prednisone 5 mg tablet 5 mg PO DAILY #10 tab 09/23/19 09/23/19 pregabalin 25 mg capsule 25 mg PO BID cap 09/23/19 09/23/19 Previous Rx's Medication Instructions Recorded epinephrine 0.3 mg IM ONCE #2 each 01/08/19 prednisone 5 mg tablet 5 mg PO DAILY #10 tab 09/23/19 Allergies Allergy/AdvReac Type Severity Reaction Status Date / Time codeine AdvReac Intermediate vomitting Verified 03/08/20 23:02 amitriptyline AdvReac tachycardia Verified 03/08/20 23:02 General Stated Complaint: GenMedical MARK: 3 Review of Systems All systems reviewed & are unremarkable except as noted in HPI and below PFSH Social History Smoking/Tobacco Use Status: Current every day Tobacco Type: cigarettes Alcohol Intake: current Alcohol Intake frequency: a few times a month Drug use: Never Substance use type: does not use Household members: family Number of 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 3.ENT: Atraumatic external nose and ears. Moist MM. Neck: Symmetric, trachea midline, No thyromegaly. No masses. Patient demonstrates good movement of cervical neck. There is no nuchal rigidity, no nuchal tenderness. Patient is able to flex the neck without any difficulty or significant pain. Negative Kernig's and Brudzinski sign. 4.CVS: +S1/S2, No murmurs or gallops. Peripheral pulses 2+ and equal in all extremities. Brisk capillary refill in all extremities. 5.RESP: Unlabored respiratory effort. Clear to auscultation bilaterally. No wheezes rales or rhonchi 6.GI: Soft, Nontender/Nondistended, No hepatosplenomegaly. No guarding or re bound. 7.MSK: Normocephalic/Atraumatic, Extremities w/o deformity or ttp No cyanosis or clubbing, Normal movement of all extremities. The patient's upper and lower extremities demonstrate 5 out of 5 strength bilaterally, however there is mild weakness on the left upper and lower compared to the right for mailing section clerk strength and movement in general. Strength is still 5 out of 5 bilaterally but a dist inguishable difference is noted. 8.Skin: Warm, Dry. Capillary refill is equal in both upper and lower extremities bilaterally. No evidence of pallor, however both the left upper and left lower limb feel minimally and almost indistinguishable a cooler than the right, there still appears to be a very mild difference. Radial pulse and dorsalis pedis posterior tibial pulse are +2 bilaterally. The patient's upper and lower extremities demonstrate 5 out of 5 strength bilaterally, however there is mild weakness on the left upper and lower compared to the right for mailing section clerk strength and movement in general. Strength is still 5 out of 5 bilaterally but a distinguishable difference is noted. 9.Neuro: director of corporate strategy II-XII grossly intact. Sensation grossly intact, no focal neurologic deficits. All 6 cardinal planes of vision are fully intact. No evidence of rotatory or vertical nystagmus. The patient demonstrated a normal cvartn-xkkz-ztuagr, good dexterity. There was no evidence of dysdiadochokinesia, however subjectively the patient states that she does have more difficulty performing rapid alternating movements with her left hand than compared to her right. Patient was able to ambulate without difficulty, however she does have a mild limp in left leg. There was no wide-based gait. Romberg testing was normal. Ejzn-uj-ozki testing was normal. Sensation was intact bilaterally as well as muscle strength bilaterally for all extremities. Patient was able to verbalize butter cup with no slurring, or miss pronunciation. Icepack test was applied to the patient's left face, no change after ice pack test. No asterixis on exam. Patellar reflexes +2 bilaterally. Bilateral Babinski testing revealed downward motion and no upward motion. 10.Psych: (AAO) x3. Appropriate mood and affect Course Vital Signs Vital signs: Vital Signs Temperature 36.6 C 03/08/20 22:58 Pulse 110 H 03/08/20 22:58 Respiratory Rate 16 03/08/20 22:58 Blood Pressure 127/69 03/08/20 22:58 Pulse Oximetry 100 03/08/20 22:58 Temperature 36.6 C 03/08/20 22:58 Temperature Source Skin 03/08/20 22:58 Pulse 110 H 03/08/20 22:58 Respiratory Rate 16 03/08/20 22:58 Respiratory Effort Non-Labored 03/08/20 23:02 Blood Pressure 127/69 03/08/20 22:58 Blood Pressure Position Sitting 03/08/20 22:58 Pulse Oximetry 100 03/08/20 22:58 Oxygen Delivery Method Room Air 03/08/20 22:58 Oxygen Flow Rate 0 03/08/20 22:58 Pain Level 5 03/08/20 22:58
[2020-03-08 23:43] LABS: Abs Immature Grans 0.01 k/cumm (0.0-0.09); Absolute Basophil Count 0.01 k/cumm (0.0-0.2); Absolute Eosinophil Count 0.07 k/cumm (0.0-0.7); Absolute Lymphocyte Count 2.49 k/cumm (1.2-3.4); Absolute Monocyte Count 0.54 k/cumm (0.11-0.7); Absolute Neutrophil Count 4.83 k/cumm (1.2-6.7); Basophils % 0.1; Eosinophils % 0.9; HCT 38.1 % (36.0-46.0); HGB 12.5 g/dL (12.0-15.5); Immature Grans % 0.1 %; Lymphocytes % 31.3; Mean Corp. HGB Concentration 32.8 g/dL (32.0-36.0); Mean Corpuscular Hemoglobin 30.1 pg (27.0-33.0); Mean Corpuscular Volume 91.8 fL (80-95); Monocytes % 6.8; Neutrophils % 60.8; Platelet Count 228 x1000/uL (130-400); RBC 4.15 m/cumm (4.00-5.20); RBC Distribution Width 13.1 % (11.7-14.6); White Blood Cell Count 7.95 k/cumm (4.4-10.8)
[2020-03-08] MEDS: Normal Saline 500 ML IV (23:43)
--- NOTE | 2020-03-08 23:50 | DI.CT_ITS ---
EXAM: CT HEAD WO CLINICAL HISTORY: tingling weakness on right side,r/o mass/stroke. TECHNIQUE: Imaging Protocol: Axial computed tomography images with coronal and sagittal reformatted images were created and reviewed COMPARISON: CT CT FACIAL W from 08/11/2019 FINDINGS: The ventricular system is normal in appearance. No evidence of acute intracranial hemorrhage, mass effect, or midline shift. The orbital structures are unremarkable. The temporal bone structures appear intact. Calvarium: Normal. Visualized Paranasal sinuses/Mastoids: Clear. IMPRESSION: Normal cranial CT. RADIATION DOSE DELIVERED: Total DLP DATA REPOSITORY: All CT scans at this facility are submitted to the National Radiology Data Registry (NRDR) Dose Index Registry (DIR) with the [employer] (ACR). RADIATION OPTIMIZATION: All CT scans at this facility use at least one of these dose optimization te chniques: automated exposure control; mA and/or kV adjustment per patient size (includes targeted exa ms where dose is matched to clinical indication); or iterative reconstruction.
[2020-03-09 00:05] LABS: ALT 29 U/L (14-59); AST 17 U/L (15-37); Albumin 3.7 g/dL (3.4-5.0); Alkaline Phosphatase 54 U/L (46-116); Anion Gap 8.2 mmol/L (3-11); BUN 16 mg/dL (7-18); Bilirubin, Total 0.4 mg/dL (0.2-1.0); CO2 26.8 mmol/L (21.0-32.0); CREATININE 0.87 mg/dL (0.55-1.02); Calcium 9.3 mg/dL (8.5-10.1); Chloride 104 mmol/L (98-107); Glucose 108 mg/dL (74-106); Potassium 3.6 mmol/L (3.5-5.1); Sodium 139 mmol/L (136-145); TSH (W/Ref FT4) 5.12 uIU/mL (0.36-3.74); Total Protein 7.2 g/dL (6.4-8.2)
--- NOTE | 2020-03-09 00:18 | DI.VRAD_ITS ---
Addendum created by Elmer Stubbs DO on 03/09/2020 12:36:45 AM EDT THIS REPORT CONTAINS FINDINGS THAT MAY BE CRITICAL TO PATIENT CARE. The findings were verbally communicated via telephone conference with Dr. Arcadio Breen, 03/09/2020 12:35 AM EDT. The findings were acknowledged and understood. Reportedly, the patient's symptoms and signs are left-sided. Multiple sclerosis is suspected clinically. Initial report created on 03/09/2020 12:17:47 AM EDT PROCEDURE INFORMATION: Exam: CT Head Without Contrast Exam date and time: 03/08/2020 11:17 PM Age: 29 years old Clinical indication: Weakness, extremity; Patient HX: Tingling\T\weakness on right side, R/O mass/stroke TECHNIQUE: Imaging protocol: Computed tomography of the head without contrast. Radiation optimization: All CT scans at this facility use at least one of these dose optimization techniques: automated exposure control; mA and/or kV adjustment per patient size (includes targeted exams where dose is matched to clinical indication); or iterative reconstruction. Other technique: STROKE PROTOCOL was implemented. COMPARISON: No relevant prior studies available. FINDINGS: Brain: Normal. No hemorrhage. Unremarkable white matter. No mass effect. Ventricles: Normal. No ventriculomegaly. Bones/joints: Unremarkable. No acute fracture. Sinuses: Visualized sinuses are unremarkable. No fluid levels. Mastoid air cells: Visualized mastoid air cells are well aerated. Soft tissues: Unremarkable. IMPRESSION: No acute intracranial abnormality. ASSESSMENT: ASPECTS ([place] Stroke Program Early CT Score) is 10. Dictated and Authenticated by: Elmer Stubbs MD. Ordering:FILIPPO Ervin MD
--- NOTE | 2020-03-09 00:19 | DI.VRAD_ITS ---
PROCEDURE INFORMATION: Exam: XR Chest, 2 Views Exam date and time: 03/08/2020 12:01 AM Age: 29 years old Clinical indication: Other: AMS TECHNIQUE: Imaging protocol: XR of the chest Views: 2 views. COMPARISON: CT NECK CHEST W 09/12/2019 6:04 PM FINDINGS: Lungs: Unremarkable. No consolidation. Pleural space: Unremarkable. No pleural effusion. No pneumothorax. Heart/Mediastinum: Unremarkable. No cardiomegaly. Bones/joints: Unremarkable. Soft tissues: Event recorder in soft tissues of left anterior chest IMPRESSION: No acute findings. Dictated and Authenticated by: Elmer Stubbs MD. Ordering:FILIPPO Ervin MD
[2020-03-09 00:21] LABS: FREE T4 1.41 ng/dL (0.76-1.46)
--- NOTE | 2020-03-09 00:45 | NUR.NOTE ---
Nursing Note:faxed referal to neuro 03/09/20
[2020-03-09 00:48] VITALS: BP 129/69; PULSE 92; RESP 16; TEMP 36.7
== END 2020-03-09 00:50 | disposition home or self-care (01) ==
PROVIDERS: Emergency Provider Student in an Organized Health Care Education/Training Program; PCP Nurse Practitioner Family
DX: R20.2 Paresthesia of skin (principal); M62.81 Muscle weakness (generalized); I45.6 Pre-excitation syndrome
CPT/HCPCS: 36415; 80053; 93005; 96360; 99285; 70450; 71046; 84439; 84443; 85025; 93010; 99284

== ENCOUNTER 2020-03-11 01:51 | Outpatient (CLI) | payer MEDICAID, SELFPAY ==
[2020-03-11 10:58] LABS: C-Reactive Protein 0.23 mg/dL (0.0-0.3)
[2020-03-11 11:22] LABS: ESR 15 mm/hr (0-20)
[2020-03-11 16:40] LABS: Rheumatoid Factor <8.6 IU/mL (<12.0)
[2020-03-12 09:51] LABS: Lyme Ab w Rflx to Lyme Confirm Negative (Negative)
[2020-03-12 15:30] LABS: ANA Interpretation Negative (Negative)
== END 2020-03-11 02:11 ==
PROVIDERS: PCP Nurse Practitioner Family; Visit Provider Psychiatry & Neurology Neurology
DX: R51 Headache (principal); H02.401 Unspecified ptosis of right eyelid
CPT/HCPCS: 36415; 85652; 86038; 86140; 86431; 86618

== ENCOUNTER 2020-03-18 01:35 | Outpatient (CLI) | payer MEDICAID, SELFPAY ==
--- NOTE | 2020-03-18 08:13 | DI.MRI_ITS ---
EXAM: MR BRAIN ORBIT FACE NECK WO/W CLINICAL HISTORY: ?MS,NUMBNESS,TINGLING LT ARM AND LEG,R20.0,R20.2 TECHNIQUE: Multiplanar multisequence MRI of the brain was performed. CONTRAST MATERIAL: IV Contrast: 18 ML of Dotarem contrast administered. COMPARISON: No exams were available for comparison FINDINGS: BRAIN: VENTRICLES AND EXTRA AXIAL SPACES: Normal in size and morphology for the patient's age. HEMORRHAGE: None. CEREBRAL PARENCHYMA: No focus of restricted diffusion to suggest acute infarct. No space-occupying le barbara identified. MIDLINE SHIFT: None. BRAINSTEM/CEREBELLUM: Normal. CALVARIUM: Normal. ENHANCEMENT: No suspicious enhancement identified. VISUALIZED PARANASAL SINUSES/MASTOIDS: Clear. [place] FELDER: Normal flow void. PITUITARY GLAND: Unremarkable. OTHER FINDINGS: ORBITS: ORBITS: The anterior and posterior chambers of the globes are intact. The retrobulbar fat is unremark able. Extraocular muscles are unremarkable. OPTIC NERVES: The intracranial and extracranial portions of the optic nerves are within normal limits . Optic chiasm is within normal limits. No MRI evidence of optic neuritis identified. SOFT TISSUES: Remaining soft tissues are unremarkable. OTHER FINDINGS: None. IMPRESSION: Unremarkable MRI of the brain and orbits. DATA REPOSITORY:
[2020-03-18] MEDS: Normal Saline Flush 10 ML SYR IVP (14:35)
[2020-03-18] MEDS: Gadoterate meglumine 20 ML VIAL 18 ML IVP (14:36)
== END 2020-03-18 01:55 ==
PROVIDERS: PCP Nurse Practitioner Family; Visit Provider Psychiatry & Neurology Neurology
DX: R20.0 Anesthesia of skin (principal); R20.2 Paresthesia of skin
CPT/HCPCS: 70553; 70543

== ENCOUNTER 2020-05-14 13:45 | Outpatient (REF) | payer MEDICAID, SELFPAY ==
[2020-05-20 23:46] LABS: SARS-CoV-2 RNA Undetected (Undetected); SARS-CoV-2 Specimen Source Nasopharynx
== END 2020-05-14 14:05 ==
LOC: NCHCN 13:45
PROVIDERS: PCP Nurse Practitioner Family; Visit Provider Nurse Practitioner Family
DX: Z20.828 Contact with and (suspected) exposure to other viral communicable diseases (principal); Z11.59 Encounter for screening for other viral diseases
CPT/HCPCS: U0003

== ENCOUNTER 2020-05-14 15:10 | Outpatient (REF) | payer MEDICAID, SELFPAY ==
[2020-05-14 19:20] LABS: TSH (W/Ref FT4) 0.85 uIU/mL (0.36-3.74)
== END 2020-05-14 15:30 ==
LOC: NCHCN 15:10
PROVIDERS: PCP Nurse Practitioner Family; Visit Provider Nurse Practitioner Family
DX: E03.9 Hypothyroidism, unspecified (principal)
CPT/HCPCS: 84443

== ENCOUNTER 2020-06-08 11:40 | Emergency (ER) | payer MEDICAID, SELFPAY ==
[2020-06-08 11:49] VITALS: BP 138/94; PULSE 85; RESP 20; TEMP 37.1; O2SAT 98
--- NOTE | 2020-06-08 12:15 | DI.US_ITS ---
EXAM: US LOWER EXTREMITY VENOUS LT CLINICAL HISTORY: Swelling, pain, r/o DVT TECHNIQUE: Left lower extremity venous ultrasound performed using grayscale, color-flow, and spectra l Doppler analysis. COMPARISON: No exams were available for comparison FINDINGS: The left common femoral, femoral and popliteal veins demonstrate normal compressibility, augmentation , and color Doppler. The posterior tibial veins are patent. The saphenofemoral junction is unremarka ble. There is no evidence of a Herrmann cyst. The soft tissues are unremarkable. IMPRESSION: No DVT. DATA REPOSITORY:
--- NOTE | 2020-06-08 12:34 | ED.GENADUL_ITS ---
Discharge Plan Disposition Patient Disposition: HOME Condition: Stable Discharge Details Chief Complaint: Orthopedic Clinical Impression: Left leg pain Primary Care Provider: Jose J Lua ED Provider: Yumiko Carlson Home Meds and New Rx's Prescriptions: Continued Vyvanse 20 mg capsule 20 mg PO DAILY RF: 0 epinephrine 0.3 mg/0.3 mL syringe 0.3 mg IM ONCE Qty: 2 RF: 0 diphenhydramine HCl [Benadryl] 25 mg Capsule 25 mg PO QHS PRNRF: 0 Discharge Instructions Instructions: Leg Pain (ED) Additional Instructions: Follow up with primary care provider in 3-5 days. Return to ED sooner if any worsening or concerns. Increase oral fluids. Please take Tylenol or Ibuprofen with food every 4-6 hours as needed for pain and swelling. Take medications as directed apply Vignesh wrap and use splint as needed for comfort. Return for fever, chills, or any other concerns. Stand Alone Forms: Work Release Referrals: Jose J Lua, [employer] [Primary Care Provider] - Discharge Data Discharge Date/Time-TO BE ENTERED AT DEPARTURE: 06/08/20 14:12 Medical Decision Making 29-year-old female presents to the ER with chief complaint of left posterior knee and thigh pain which began approximately 2 and half to 3 days ago. She reports increased swelling in her left lower extremity and continued pain despite taking ibuprofen and icing leg. She has no known injuries. Positive Homans sign on initial exam, she has never had history of clot but she does report strong family history her father has had a DVT in the past. She is a daily smoker she reports 1 pack/day smoking, is not on any control. States she drives approximately 2 hours a day to and from work and sits at a desk for approximately 3 hours a day. Denies any other associated symptoms including fever chills nausea vomiting or dysuria. Denies any chest pain or shortness of breath. 1237: Ultrasound venous Doppler ordered, will do some basic labs including CBC, CMP and a PT. Labs are largely within normal limits. 1330: Patient observed ambulatory without assistance or problem to the bathroom. Continues to complain of left thigh pain and popliteal pain. Differential diagnosis includes DVT, muscle strain or sprain, HPI General Mode of arrival: ambulatory . Date/Time Provider Initiated Documentation: 06/08/20 12:04 . Limitations to Documentation: no limitations . Information obtained by: patient . HPI Narrative: 29-year-old female presents to the ER with chief complaint of left posterior knee and thigh pain which began approximately 2 and half to 3 days ago. She reports increased swelling in her left lower extremity and continued pain despite taking ibuprofen and icing leg. She has no known injuries. Positive Homans sign on initial exam, she has never had history of clot but she does report strong family history her father has had a DVT in the past. She is a daily smoker she reports 1 pack/day smoking, is not on any control. States she drives approximately 2 hours a day to and from work and sits at a desk for approximately 3 hours a day. Denies any other associated symptoms including fever chills nausea vomiting or dysuria. Denies any chest pain or shortness of breath. Related Data Home Medications Medication Instructions Recorded Confirmed epinephrine 0.3 mg IM ONCE #2 each 01/08/19 06/08/20 diphenhydramine HCl [Benadryl] 25 mg PO QHS PRN 09/17/19 06/08/20 Vyvanse 20 mg PO DAILY 06/08/20 06/08/20 Previous Rx's Medication Instructions Recorded epinephrine 0.3 mg IM ONCE #2 each 01/08/19 Allergies Allergy/AdvReac Type Severity Reaction Status Date / Time clonidine Allergy Severe Anaphylaxsi Unverified 06/08/20 12:05 s codeine AdvReac Intermediate vomitting Verified 06/08/20 12:05 amitriptyline AdvReac tachycardia Verified 06/08/20 12:05 General Stated Complaint: Orthopedic MARK: 3 Review of Systems Narrative: Constitutional: Negative for weight loss, alert and oriented, well groomed, normal body habitus, appears comfortable. HEENT: Denies trauma, headaches, blurry vision, nasal discharge, sore throat, trouble swallowing. Chest: Denies chest pain, palpitations, irregular rhythm, hypertension. Respiratory: Denies Shortness of breath, cough, hemoptysis. GI: Denies abdominal pain, nausea, vomiting, diarrhea, constipation. : Denies dysuria, hematuria, flank pain, rectal bleeding. Musculoskeletal: Left lower extremity swelling and popliteal pain. Neuro: Denies dizziness, blurry vision, weakness, syncope, headache or facial numbness. Hematologic: Denies easy bruising, intolerance to heat or cold, hair loss. [facility] Medical History GERD (gastroesophageal reflux disease) (Chronic) Status post placement of implantable loop recorder (Acute) Ljosb-Fhwwrztzv-Mkltl (WPW) syndrome (Acute) Ablasion done @ age 16 [facility] [place] Surgical History H/O cardiac radiofrequency ablation (Acute) H/O tubal ligation (Chronic) History of section (Chronic) Social History Smoking/Tobacco Use Status: Current every day Tobacco Type: cigarettes Alcohol Intake: former Drug use: Never Substance use type: does not use Household members: family Number of 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 Appears stated age. Normal body habitus. Head: Normocephalic, no trauma. Eyes: Pupils PERRLA, Red reflex noted, EOM's intact. Eyelids symmetrical without lesions, discharge, or swelling. ENT: Bilateral TM's WNL, External ear normal to inspection, no mastoid TTP, swelling, or erythema, Nasal turbinates WNL, no nasal discharge. Normal dentiti on, Posterior pharynx WNL, no exudate. Chest: RRR, Normal S1, S2, distal pulses intact. Resp: Lungs clear to auscultation bilaterally, no wheezes, rales, or rhonchi. Musculoskeletal: Normal gait, 5/5 strength to all four extremities. Positive Homans sign left lower extremity, questionably mildly swollen left lower extremity. Skin: No suspicious rashes or lesions. Capillary refill less than 2 sec. Neurologic: Cranial nerves II-XII intact. Alert and oriented x 3. DTR's intact. Hematologic/Lymphatic: No ecchymosis, no lymphadenopathy. Course Vital Signs Vital signs: Vital Signs Temperature 37.1 C 06/08/20 11:49 Pulse 85 06/08/20 11:49 Respiratory Rate 20 06/08/20 11:49 Blood Pressure 138/94 H 06/08/20 11:49 Pulse Oximetry 98 06/08/20 11:49 Temperature 37.1 C 06/08/20 11:49 Temperature Source Tympanic 06/08/20 11:49 Pulse 85 06/08/20 11:49 Respiratory Rate 20 06/08/20 11:49 Respiratory Effort 06/08/20 11:53 Blood Pressure 138/94 H 06/08/20 11:49 Pulse Oximetry 98 06/08/20 11:49 Oxygen Delivery Method Room Air 06/08/20 11:49 Oxygen Flow Rate 0 06/08/20 11:49 Pain Level 7 06/08/20 11:53
[2020-06-08 13:18] LABS: Abs Immature Grans 0.02 10^3/uL (0.0-0.06); Absolute Basophil Count 0.03 10^3/uL (0.0-0.2); Absolute Eosinophil Count 0.32 10^3/uL (0.0-0.7); Absolute Lymphocyte Count 2.53 10^3/uL (1.2-3.4); Absolute Monocyte Count 0.46 10^3/uL (0.1-0.8); Absolute Neutrophil Count 4.63 10^3/uL (1.2-6.7); Basophils % 0.4; HCT 36.4 % (36.0-46.0); Immature Grans % 0.3; Lymphocytes % 31.7; MCH 30.5 pg (27.0-33.0); MCV 92.6 fL (80-95); MPV 10.6 fL (8.0-11.0); Monocytes % 5.8; Neutrophils % 57.8; Nucleated RBC 0 %; Platelet Count 261 10^3/uL (130-400); RBC 3.93 10^6/uL (3.93-5.22); RDW 12.9 % (11.7-14.6); RDW-SD 43.8 fL; WBC 7.99 10^3/uL (4.4-10.8)
[2020-06-08 13:30] LABS: INR 0.9 (0.9-1.1); Prothrombin Time 9.3 sec (9.3-11.0)
[2020-06-08 13:33] LABS: ALT 84 U/L (14-59); AST 172 U/L (15-37); Albumin 3.5 g/dL (3.4-5.0); Alkaline Phosphatase 50 U/L (46-116); Anion Gap 10.3 mmol/L (3-11); BUN 10 mg/dL (7-18); Bilirubin, Total 0.1 mg/dL (0.2-1.0); CO2 22.7 mmol/L (21.0-32.0); CREATININE 0.69 mg/dL (0.55-1.02); Calcium 8.8 mg/dL (8.5-10.1); Chloride 106 mmol/L (98-107); Glucose 87 mg/dL (74-106); Sodium 139 mmol/L (136-145); Total Protein 7.1 g/dL (6.4-8.2)
[2020-06-08 14:16] VITALS: BP 150/99; PULSE 86; RESP 22; TEMP 36.4; O2SAT 97
== END 2020-06-08 14:12 | disposition home or self-care (01) ==
PROVIDERS: Emergency Provider Registered Nurse Emergency; PCP Nurse Practitioner Family
DX: M79.605 Pain in left leg (principal); I45.6 Pre-excitation syndrome; F17.210 Nicotine dependence, cigarettes, uncomplicated
CPT/HCPCS: 36415; 80053; 99284; 85025; 85610; 93971

== ENCOUNTER 2020-11-18 08:41 | Emergency (ER) | payer MEDICAID, SELFPAY ==
[2020-11-18 08:49] VITALS: BP 126/79; PULSE 96; RESP 18; TEMP 36.4; O2SAT 99
--- NOTE | 2020-11-18 08:56 | W.ED.GENAD ---
Discharge Plan Disposition Patient Disposition: HOME Condition: Stable Discharge Details Clinical Impression: Pharyngitis, Cough Primary Care Provider: Jose J Lua ED Provider: Maria R Meehan Home Meds and New Rx's Prescriptions: New amoxicillin 500 mg tablet 500 mg PO BID 10 Days Qty: 20 RF: 0 Continued Vyvanse 20 mg capsule 20 mg PO DAILY RF: 0 epinephrine 0.3 mg/0.3 mL syringe 0.3 mg IM ONCE Qty: 2 RF: 0 diphenhydramine HCl [Benadryl] 25 mg Capsule 25 mg PO QHS PRNRF: 0 Discharge Instructions Instructions: Pharyngitis (ED), Acute Cough (ED) Additional Instructions: Drink plenty of fluids and get plenty of rest. Alternate tylenol and motrin as needed and directed for pain. Gargle at different times with combinations of warm water mixed with salt and then warm water mixed with a capful of hydrogen peroxide. This can help with pain but also help with breaking up any possible tonsil stones. If your symptoms do not improve or worsen over the next few days, you can start the antibiotics. Return immediately to the emergency department if you develop any worsening or new concerning symptoms. Discharge Data Discharge Physician: Maria R Meehan Medical Decision Making 30-year-old female with a history of frequent strep throat infections presents with sore throat and cough since yesterday. She appears nontoxic. She has minimal tonsillar erythema and mild right-sided edema and mild to moderate left-sided edema. No peritonsillar abscess. No exudates noted. No tonsil stones noted. She is speaking.. Airway intact. No lymphadenopathy, submandibular swelling, drooling or trismus. Rapid strep negative. History and presentation not consistent with Covid but patient was offered a Covid swab but declined. Discussed that her symptoms could be due to URI with cough and sore throat which can be treated supportively. Also recommended salt water and hydrogen peroxide gargles to help with tonsil stone and pain. She was given a prescription for amoxicillin if her symptoms do not improve or worsen. She was given a dose of Decadron here to help with pain. Advised to follow up with the primary care doctor for re-evaluation. Usual and customary return precautions given prior to discharge. Medical Records Medical records reviewed: Yes I reviewed the patient's medical records. HPI General Mode of arrival: ambulatory. Date/Time Provider Initiated Documentation: 11/18/20 08:55. Limitations to Documentation: no limitations. Information obtained by: patient. HPI Narrative: Patient is a 30-year-old female with a history of multiple episodes of previous strep throat who presents with sore throat and dry cough since yesterday. Patient states her symptoms started with a sensation of a dry throat which then triggered a cough. She states since then she has developed a sore throat, worse on the left side. She states she noted white specks to her tonsils which she thought were tonsil stones which she attempted to cough up but then swallowed. She has been able to eat and drink but with some pain. She denies any sputum production, shortness of breath, fever, chills, loss of sense of smell or taste. She states her main complaint is a sore throat. Related Data Home Medications Medication Instructions Recorded Confirmed epinephrine 0.3 mg IM ONCE #2 each 01/08/19 11/18/20 diphenhydramine HCl [Benadryl] 25 mg PO QHS PRN 09/17/19 11/18/20 Vyvanse 20 mg PO DAILY 06/08/20 11/18/20 amoxicillin 500 mg PO BID 10 Days #20 tab 11/18/20 Previous Rx's Medication Instructions Recorded epinephrine 0.3 mg IM ONCE #2 each 01/08/19 amoxicillin 500 mg PO BID 10 Days #20 tab 11/18/20 Allergies Allergy/AdvReac Type Severity Reaction Status Date / Time clonidine Allergy Severe Anaphylaxsi Unverified 06/08/20 12:05 s codeine AdvReac Intermediate vomitting Verified 06/08/20 12:05 amitriptyline AdvReac tachycardia Verified 06/08/20 12:05 General Stated Complaint: RespSymp MARK: 4 Review of Systems All systems reviewed & are unremarkable except as noted in HPI and below Constitutional Constitutional: Reports as per HPI, Denies chills and Denies fever(s) Eyes Eyes: Denies blurry vision ENT Ears, Nose, Mouth, and Throat: Denies dizziness, Reports sore throat and Denies throat swelling Cardiovascular Cardiovascular: Denies chest pain and Denies dyspnea Respiratory Respiratory: Reports cough and Denies dyspnea Gastrointestinal Gastrointestinal: Denies abdominal pain, Denies diarrhea and Denies vomiting Genitourinary Genitourinary: Denies hematuria and Denies dysuria Musculoskeletal Musculoskeletal: Denies back pain and Denies numbness Integumentary/Breasts Skin/Breast: Denies lesions and Denies rash Neurologic Neurologic: Denies dizziness, Denies localized weakness and Denies numbness Allergic/Immunologic Allergic/Immunologic: Denies throat swelling [facility] Medical History (Updated 11/18/20 @ 09:16 by Maria R Meehan DO) GERD (gastroesophageal reflux disease) Status post placement of implantable loop recorder Qznwi-Tuaurzpul-Sontn (WPW) syndrome Ablasion done @ age 16 [facility] [place] Surgical History H/O cardiac radiofrequency ablation H/O tubal ligation History of section Social History Smoking/Tobacco Use Status: Current every day Tobacco Type: cigarettes Smoking risk assessment performed?: Yes Alcohol Intake: former Drug use: Never Substance use type: does not use Household members: family Number of 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 Seatbelt use: always Do you feel safe at home: Yes Do you feel safe in your relationship?: Yes Additional Social history: 2 children biological; 2 step Exam Const General: cooperative, healthy appearing and no acute distress HENMT Head: normal to inspection Ears: hearing grossly normal bilaterally, external ears normal and TM's normal bilaterally General nose exam: external nose normal Mouth: oral mucosae normal Throat: uvula midline, abnormal tonsil on the right hypertrophy (Mild), on the left hypertrophy (Mild to moderate) and bilaterally erythema (Minimal), no peritonsillar masses and other (No obvious tonsil stones noted.) Eyes General: appearance normal, both eyes and all related structures Neck Neck: normal visual inspection, no lymphadenopathy, no meningeal signs, trachea midline, supple, no anterior neck swelling and No submandibular swelling Resp Effort & Inspection: normal respiratory effort and able to speak in complete sentences Auscultation: clear to auscultation bilaterally Cardio Rate: regular rate Rhythm: regular rhythm Skin General skin exam: no rashes or lesions noted Neuro General: patient alert, patient awake and patient oriented x3 Motor: muscle tone normal throughout Extrem General: normal to inspection and full ROM Psych Appearance: grossly normal Affect: normal affect Course Vital Signs Vital signs: Vital Signs Temperature 97.5 F L 11/18/20 08:49 Pulse 96 H 11/18/20 08:49 Respiratory Rate 18 11/18/20 08:49 Blood Pressure 126/79 11/18/20 08:49 Pulse Oximetry 99 11/18/20 08:49 Temperature 97.5 F L 11/18/20 08:49 Temperature Source Skin 11/18/20 08:49 Pulse 96 H 11/18/20 08:49 Respiratory Rate 18 11/18/20 08:49 Respiratory Effort Non-Labored 11/18/20 08:52 Respiratory Depth Normal 11/18/20 08:52 Blood Pressure 126/79 11/18/20 08:49 Blood Pressure Position Sitting 11/18/20 08:49 Pulse Oximetry 99 11/18/20 08:49 Oxygen Delivery Method Room Air 11/18/20 08:49 Oxygen Flow Rate 0 11/18/20 08:49 Pain Level 3 11/18/20 08:49
[2020-11-18] MEDS: Dexamethasone 10 MG/ML VIAL PO (09:24)
== END 2020-11-18 09:28 | disposition home or self-care (01) ==
PROVIDERS: Emergency Provider Physician Assistant; PCP Nurse Practitioner Family
DX: J02.9 Acute pharyngitis, unspecified (principal); R05 Cough; Z87.09 Personal history of other diseases of the respiratory system
CPT/HCPCS: 87880; 99283; 87081; J1100

== ENCOUNTER 2021-01-06 16:51 | Outpatient (REF) | payer MEDICAID, SELFPAY ==
[2021-01-06 18:51] LABS: HCT 37.2 % (36.0-46.0); HGB 12.4 g/dL (11.2-15.7); MCH 31.1 pg (27.0-33.0); MCHC 33.3 % (32.0-36.0); MCV 93.2 fL (80-95); Platelet Count 252 10^3/uL (130-400); RBC 3.99 10^6/uL (3.93-5.22); RDW 12.8 % (11.7-14.6); RDW-SD 43.9 fL; WBC 7.96 10^3/uL (4.4-10.8)
[2021-01-06 19:01] LABS: Iron 62 ug/dL (50-170); Total Iron Binding Capacity 395 ug/dL (250-450); Transferrin Sat 16 % (15-50)
[2021-01-06 19:28] LABS: Ferritin 39 ng/mL (8-252); TSH (W/Ref FT4) 2.99 uIU/mL (0.36-3.74); Vitamin B12 301 pg/mL (193-986)
== END 2021-01-06 16:52 | disposition home or self-care (01) ==
LOC: NCHCN 16:51
PROVIDERS: PCP Nurse Practitioner Family; Visit Provider Nurse Practitioner Family
DX: E03.9 Hypothyroidism, unspecified (principal); R20.2 Paresthesia of skin; R53.83 Other fatigue; R63.5 Abnormal weight gain
CPT/HCPCS: 85027; 82607; 82728; 83540; 83550; 84443

== ENCOUNTER 2021-01-26 14:37 | Outpatient (REF) | payer MEDICAID, SELFPAY ==
[2021-01-28 14:38] LABS: COVID-19 RT-PCR UVMMC Result Negative (Negative)
== END 2021-01-26 14:38 | disposition home or self-care (01) ==
LOC: LBN 14:37
PROVIDERS: PCP Nurse Practitioner Family; Visit Provider Physician Assistant Medical
DX: Z20.822 Contact with and (suspected) exposure to COVID-19 (principal); J06.9 Acute upper respiratory infection, unspecified
CPT/HCPCS: U0003

== ENCOUNTER 2021-06-06 16:41 | Outpatient (REF) | payer MEDICAID, SELFPAY ==
[2021-06-08 14:27] LABS: COVID-19 RT-PCR UVMMC Result Negative (Negative)
== END 2021-06-06 16:42 | disposition home or self-care (01) ==
LOC: LBN 16:41
PROVIDERS: PCP Nurse Practitioner Family; Visit Provider Nurse Practitioner Family
DX: Z20.822 Contact with and (suspected) exposure to COVID-19 (principal); J06.9 Acute upper respiratory infection, unspecified
CPT/HCPCS: U0003

== ENCOUNTER 2021-06-06 16:52 | Outpatient (CLI) | payer MEDICAID, SELFPAY ==
--- NOTE | 2021-06-06 | DI.RAD_ITS ---
Exam(s) XR CHEST 2V PA LATERAL EXAM: XR CHEST 2V PA LATERAL CLINICAL HISTORY: SHORTNESS OF BREATH, FEVER R50.9, R06.02 TECHNIQUE: 2D digital imaging was performed. COMPARISON: CR,XR XR CHEST 2V PA LATERAL from 03/09/2020 FINDINGS: MEDIASTINUM: Normal. HEART: Normal. PULMONARY VASCULATURE: Normal. LUNGS: Clear. PLEURAL SPACE: No pleural effusion or pneumothorax. BONE:Unremarkable for age. Loop recorder device in the anterior chest wall. IMPRESSION: No acute abnormality. DATA REPOSITORY: RADIATION DOSE DELIVERED:
--- NOTE | 2021-06-06 17:37 | DI.VRAD_ITS ---
PROCEDURE INFORMATION: Exam: XR Chest Exam date and time: 06/06/2021 4:55 PM Age: 30 years old Clinical indication: Other: Shortness of breath, fever r50.9, r06.02 TECHNIQUE: Imaging protocol: XR of the chest. Views: 2 views. Total images: 2 COMPARISON: CR XR CHEST 2V PA LATERAL 03/09/2020 12:01 AM FINDINGS: Tubes, catheters and devices: Loop recorder device noted in the chest wall. Lungs: Unremarkable. No consolidation. Pleural spaces: Unremarkable. No pleural effusion. No pneumothorax. Heart/Mediastinum: Unremarkable. No cardiomegaly. Bones/joints: Unremarkable. IMPRESSION: No acute cardiopulmonary abnormality. Dictated and Authenticated by: Era Melton MD. Ordering:SYLVESTER Lux MD
== END 2021-06-06 17:12 ==
PROVIDERS: PCP Nurse Practitioner Family; Visit Provider Nurse Practitioner Family
DX: R06.02 Shortness of breath (principal); R50.9 Fever, unspecified
CPT/HCPCS: 71046

== ENCOUNTER 2021-06-09 08:53 | Outpatient (REF) | payer MEDICAID, SELFPAY ==
[2021-06-09 14:26] LABS: HCT 39.9 % (36.0-46.0); HGB 12.9 g/dL (11.2-15.7); MCH 30.6 pg (27.0-33.0); MCHC 32.3 % (32.0-36.0); MCV 94.8 fL (80-95); MPV 11.6 fL (8.0-11.0); Platelet Count 266 10^3/uL (130-400); RBC 4.21 10^6/uL (3.93-5.22); RDW 12.9 % (11.7-14.6); RDW-SD 45.1 fL
[2021-06-10 10:50] LABS: Lyme Ab w Rflx to Lyme Confirm Negative (Negative)
[2021-06-13 23:28] LABS: Anaplasma phagocytophilum Negative (Negative); B. miyamotoi PCR Negative (Negative); Babesia divergens/MO-1 Negative (Negative); Babesia duncani Negative (Negative); Babesia microti Negative (Negative); Ehrlichia chaffeensis Negative (Negative); Ehrlichia ewingii/canis Negative (Negative); Ehrlichia muris eauclairensis Negative (Negative)
== END 2021-06-09 08:54 | disposition home or self-care (01) ==
LOC: NCHCN 08:53
PROVIDERS: PCP Nurse Practitioner Family; Visit Provider Nurse Practitioner
DX: R53.83 Other fatigue (principal)
CPT/HCPCS: 85027; 87798; 86618

== ENCOUNTER 2022-01-20 14:58 | Emergency (ER) | payer MEDICAID, SELFPAY ==
[2022-01-20] VITALS (15 sets, daily range): BP systolic 108–132; BP diastolic 61–82; PULSE 81–115; RESP 12–31; TEMP 36.6–37.1; O2SAT 94–99
--- NOTE | 2022-01-20 15:45 | DI.CT_ITS ---
Exam(s) CT CHEST PE CTA EXAM: CT CHEST PE CTA CLINICAL HISTORY: pleuritic cp, tachy, covid positive. TECHNIQUE: Imaging Protocol: Axial CT angiography was performed with multi-slice acquisition and mu lti-planar and/or 3D reconstructions. CONTRAST MATERIAL: Intravenous: Omnipaque 350 Contrast volume:85 mL COMPARISON: CT CT NECK CHEST W from 09/12/2019 CR,XR XR CHEST 2V PA LATERAL from 06/06/2021 FINDINGS: Tracheobronchial tree: Patent where visualized. Pulmonary parenchyma: No focal consolidations. Few tiny areas of ground-glass opacity in the depende nt portion of the lung bases. These likely reflect atelectasis. Pneumonia cannot be entirely exclud ed. No architectural distortion. Pulmonary Arteries: No evidence of filling defect to suggest pulmonary emboli. Mediastinum and Sirisha: No dominant adenopathy or fluid collection. The esophagus is unremarkable. Sm all hiatal hernia. Visualized thyroid gland: Unremarkable. Pleura: No effusion or pneumothorax. Heart: The heart is not dilated. No coronary artery calcifications are seen. No pericardial effusion. Aorta: Thoracic aorta non-dilated. No evidence of dissection. Upper abdomen: Unremarkable. Soft tissues: Unremarkable. Bones: Within normal limits for the patient's age. IMPRESSION: 1. No evidence of pulmonary embolism, thoracic aortic dissection or aneurysm. 2. Results of this exam have been verbally communicated with provider. RADIATION DOSE DELIVERED: 433.99mGy.cm Total DLP DATA REPOSITORY: All CT scans at this facility are submitted to the National Radiology Data Registry (NRDR) Dose Index Registry (DIR) with the [employer] (A[employer]). RADIATION OPTIMIZATION: All CT scans at this facility use at least one of these dose optimization te chniques: automated exposure control; mA and/or kV adjustment per patient size (includes targeted exa ms where dose is matched to clinical indication); or iterative reconstruction.
[2022-01-20 15:59] LABS: Abs Immature Grans 0.11 10^3/uL (0.0-0.06); Absolute Lymphocyte Count 0.58 10^3/uL (1.2-3.4); Absolute Monocyte Count 0.41 10^3/uL (0.1-0.8); Absolute Neutrophil Count 14.06 10^3/uL (1.2-6.7); HCT 38.3 % (36.0-46.0); HGB 12.2 g/dL (11.2-15.7); Immature Grans % 0.7; Lymphocytes % 3.8; MCHC 31.9 % (32.0-36.0); MCV 94.3 fL (80-95); MPV 10.6 fL (8.0-11.0); Monocytes % 2.7; Neutrophils % 92.8; Nucleated RBC 0 %; Platelet Count 289 10^3/uL (130-400); RBC 4.06 10^6/uL (3.93-5.22); RDW 12.6 % (11.7-14.6); RDW-SD 43.4 fL; WBC 15.15 10^3/uL (4.4-10.8)
--- NOTE | 2022-01-20 16:00 | DI.US_ITS ---
Exam(s) US LOWER EXTREMITY VENOUS LT EXAM: US LOWER EXTREMITY VENOUS LT CLINICAL HISTORY: pain, covid, ?dvt TECHNIQUE: Left lower extremity venous ultrasound performed using grayscale, color-flow, and spectra l Doppler analysis. COMPARISON: US US LOWER EXTREMITY VENOUS LT from 06/08/2020 FINDINGS: The left common femoral, femoral and popliteal veins demonstrate normal compressibility, augmentation , and color Doppler. The posterior tibial veins are patent. The saphenofemoral junction is unremarka ble. There is no evidence of a Herrmann cyst. The soft tissues are unremarkable. IMPRESSION: No DVT. DATA REPOSITORY:
--- NOTE | 2022-01-20 16:07 | ED.GENADUL_ITS ---
Discharge Plan Disposition Patient Disposition: HOME Condition: Stable Discharge Details Clinical Impression: Pneumonia Primary Care Provider: Jose J Lua ED Provider: Tomy Alonzo Home Meds and New Rx's Prescriptions: New doxycycline hyclate 100 mg tablet 100 mg PO BID Qty: 10 0RF Discharge Instructions Instructions: Pneumonia (ED) Additional Instructions: Patient plenty fluids to stay hydrated. Allow for plenty of rest. Take full course of antibiotic prescribed. Please contact your primary care physician to arrange follow-up. Return to the ER immediately for any worsening or new concerning symptoms. 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 Patient saturating well but does have rales bilaterally. Concern for persistent COVID-19 versus pneumonia versus high concern for acute life-threatening pulmonary embolism. Patient's father apparently has history of DVT. Plan to obtain CT of the chest. 1725 --labs reviewed and leukocytosis noted. CT of the chest was interpreted by radiology: FINDINGS: Tracheobronchial tree: Patent where visualized. Pulmonary parenchyma: No focal consolidations.? Few tiny areas of ground-glass opacity in the dependent portion of the lung bases.? These likely reflect atelectasis.? Pneumonia cannot be entirely excluded.? No architectural distortion. Pulmonary Arteries: No evidence of filling defect to suggest pulmonary emboli. Mediastinum and Sirisha: No dominant adenopathy or fluid collection.? The esophagus is unremarkable.? Small hiatal hernia. Visualized thyroid gland: Unremarkable.? Pleura: No effusion or pneumothorax. Heart: The heart is not dilated. No coronary artery calcifications are seen. No pericardial effusion.? Aorta: Thoracic aorta non-dilated. No evidence of dissection. Upper abdomen:? Unremarkable. Soft tissues: Unremarkable.? Bones: Within normal limits for the patient's age. IMPRESSION: 1. No evidence of pulmonary embolism, thoracic aortic dissection or aneurysm. 2. Results of this exam have been verbally communicated with provider. Ultrasound of the left lower extremity was interpreted by radiology: IMPRESSION: No DVT. Patient reassessed and tachycardia resolved with IV fluid bolus. I suspect these tiny foci noted on CT do represent early pneumonia superimposed on prior Covid infection. Plan to treat with doxycycline 1 mg twice daily x5 days and have her follow-up with PCP. Usual customary discharge instructions were reviewed with the patient Lab Data Lab results reviewed: Yes I reviewed the patient's lab results. Labs: Laboratory Tests Range/Units 01/20/22 01/20/22 15:40 15:40 WBC (4.4-10.8) 10^3/uL 15.15 H RBC (3.93-5.22) 10^6/uL 4.06 Hgb (11.2-15.7) g/dL 12.2 Hct (36.0-46.0) % 38.3 MCV (80-95) fL 94.3 MCH (27.0-33.0) pg 30.0 MCHC (32.0-36.0) % 31.9 L RDW (11.7-14.6) % 12.6 Plt Count (130-400) 10^3/uL 289 MPV (8.0-11.0) fL 10.6 Immature Gran % 0.7 Neutrophils % 92.8 Lymphocytes % 3.8 Monocytes % 2.7 Eosinophils % 0.0 Basophils % 0.0 Nucleated RBC % % 0 Absolute Neutrophils (1.2-6.7) 10^3/uL 14.06 H Absolute Lymphocytes (1.2-3.4) 10^3/uL 0.58 L Absolute Monocytes (0.1-0.8) 10^3/uL 0.41 Absolute Eosinophils (0.0-0.7) 10^3/uL 0.00 Absolute Basophils (0.0-0.2) 10^3/uL 0.00 Sodium (136-145) mmol/L 139 Potassium (3.5-5.1) mmol/L 4.0 Chloride (98-107) mmol/L 106 Carbon Dioxide (21.0-32.0) mmol/L 22.3 Anion Gap (3-11) mmol/L 10.7 BUN (7-18) mg/dL 12 Creatinine (0.55-1.02) mg/dL 0.9 Estimated GFR/1.73 m2 (mL/min/1.73m2) >= 60.00 Glucose (74-106) mg/dL 152 H Calcium (8.5-10.1) mg/dL 9.7 Total Bilirubin (0.2-1.0) mg/dL 0.3 AST (15-37) U/L 16 ALT (14-59) U/L 32 Alkaline Phosphatase (46-116) U/L 70 Troponin I (<or=60) ng/L < 50 Total Protein (6.4-8.2) g/dL 8.0 Albumin (3.4-5.0) g/dL 3.9 HPI General Mode of arrival: ambulatory . Date/Time Provider Initiated Documentation: 01/20/22 15:42 . Limitations to Documentation: no limitations . Information obtained by: patient . HPI Narrative: 31-year-old female with history of Xrrbl-Zoapwdzko-Kmehw status post remote ablation, diagnosed with COVID-19 on 01/06/2022, completed 5-day course of pack Slo-Bid, presents today with chief complaint of shortness of breath. Patient notes persistent and progressive shortness of breath over the past week. Symptoms are now moderate to severe and worse with exertion. She has associated pleuritic chest pain as well as persistent cough. Of note, patient had a syncopal episode on 01/04/2022. Patient was seen earlier this morning at [facility] emergency department received treatment including albuterol neb, Decadron, and was discharged. Related Data Home Medications Medication Instructions Recorded Confirmed doxycycline hyclate 100 mg tablet 100 mg PO BID #10 tab 01/20/22 Previous Rx's Medication Instructions Recorded doxycycline hyclate 100 mg tablet 100 mg PO BID #10 tab 01/20/22 Allergies Allergy/AdvReac Type Severity Reaction Status Date / Time clonidine Allergy Severe Anaphylaxsi Unverified 01/20/22 15:28 s codeine AdvReac Intermediate vomitting Verified 01/20/22 15:28 amitriptyline AdvReac tachycardia Verified 01/20/22 15:28 General Stated Complaint: RespSymp MARK: 3 Review of Systems Narrative: Patient does note right posterior leg pain over the past few days that seems like it moved and has improved All systems reviewed & are unremarkable except as noted in HPI and below Constitutional Constitutional: Denies fever(s) and Reports lethargy Cardiovascular Cardiovascular: Reports as per HPI Respiratory Respiratory: Reports as per HPI [facility] All Active Problems (Updated 01/20/22 @ 17:31 by Tomy Alonzo MD) Pneumonia (Acute) Hemtb-Vbnalcybk-Uoawo (WPW) syndrome (Acute) Ablasion done @ age 16 [facility] [place] Chronic tonsillitis (Acute) Functional neurologic complaint (Acute) Neck pain (Acute) Ptosis, right (Acute) Right-sided face pain (Acute) Depression (Chronic) GERD (gastroesophageal reflux disease) (Chronic) Abdominal pain (Acute) Medical History Status post placement of implantable loop recorder Surgical History H/O cardiac radiofrequency ablation H/O tubal ligation History of section Social History Smoking/Tobacco Use Status: Former Tobacco Use Smoking risk assessment performed?: Yes Alcohol Intake: former Drug use: Never Substance use type: does not use Household members: family Number of 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 Seatbelt use: always Do you feel safe at home: Yes Do you feel safe in your relationship?: Yes Additional Social history: 2 children biological; 2 step Exam Const General: cooperative and no acute distress Nutritional Appearance: well nourished Orientation: alert Limitations: altered mental status HENMT Mouth: mucous membranes dry Eyes Conjunctivae: normal conjunctivae Sclera: normal sclerae Neck Neck: trachea midline and supple Resp Effort & Inspection: normal respiratory effort, able to speak in complete sentences, not labored and not tachypneic Auscultation: rales on the right and on the left and no rhonchi Cardio Rate: tachycardic Rhythm: regular rhythm Heart Sounds: no murmurs GI Palpation: soft, not firm, no guarding, no masses, not rigid and nontender Skin General skin exam: no rashes or lesions noted Neuro General: patient alert, patient awake, patient oriented x3 and tone normal Extrem General: calf tenderness on the left and no edema Psych Appearance: grossly normal Mental Status: mental status grossly normal Speech and Movement: speech and movement normal Course Vital Signs Vital signs: Vital Signs Temperature 37.1 C 01/20/22 15:21 Pulse 100 H 01/20/22 15:21 Respiratory Rate 16 01/20/22 15:21 Blood Pressure 122/70 01/20/22 15:21 Pulse Oximetry 97 01/20/22 15:21 Temperature 37.1 C 01/20/22 15:21 Temperature Source Skin 01/20/22 15:21 Pulse 100 H 01/20/22 15:21 Respiratory Rate 16 01/20/22 15:21 Respiratory Effort Non-Labored 01/20/22 15:59 Respiratory Depth Shallow 01/20/22 15:59 Blood Pressure 122/70 01/20/22 15:21 Blood Pressure Position Sitting 01/20/22 15:21 Pulse Oximetry 97 01/20/22 15:21 Oxygen Delivery Method Room Air 01/20/22 15:21 Oxygen Flow Rate 0 01/20/22 15:21 Pain Level 5 01/20/22 15:21 Comment 01/20/22 15:21 Lab/Test Results Lab/Test Results: Laboratory Tests Range/Units 01/20/22 15:40 WBC (4.4-10.8) 10^3/uL 15.15 H RBC (3.93-5.22) 10^6/uL 4.06 Hgb (11.2-15.7) g/dL 12.2 Hct (36.0-46.0) % 38.3 MCV (80-95) fL 94.3 MCH (27.0-33.0) pg 30.0 MCHC (32.0-36.0) % 31.9 L RDW (11.7-14.6) % 12.6 Plt Count (130-400) 10^3/uL 289 MPV (8.0-11.0) fL 10.6 Immature Gran % 0.7 Neutrophils % 92.8 Lymphocytes % 3.8 Monocytes % 2.7 Eosinophils % 0.0 Basophils % 0.0 Nucleated RBC % % 0 Absolute Neutrophils (1.2-6.7) 10^3/uL 14.06 H Absolute Lymphocytes (1.2-3.4) 10^3/uL 0.58 L Absolute Monocytes (0.1-0.8) 10^3/uL 0.41 Absolute Eosinophils (0.0-0.7) 10^3/uL 0.00 Absolute Basophils (0.0-0.2) 10^3/uL 0.00
[2022-01-20] MEDS: Omnipaque 350 MG/ML 100 ML BTL IJ (16:12)
--- NOTE | 2022-01-20 16:15 | RT.EKG_ITS ---
APPROVED REPORT Exam: Resting ECG Reason for Exam: tachycardia Patient Location: E HR:92 bpm ECG Measurements Heart Rate 92 AXIS OH 175 P 47 QRSd 85 QRS 15 QT 370 T 41 QTc 458 Conclusion Sinus rhythm...normal P axis, V-rate 60- 99 Ventricular trigeminy...trigeminy string>6 w/ V complexes
[2022-01-20 16:25] LABS: ALT 32 U/L (14-59); AST 16 U/L (15-37); Albumin 3.9 g/dL (3.4-5.0); Alkaline Phosphatase 70 U/L (46-116); Anion Gap 10.7 mmol/L (3-11); BUN 12 mg/dL (7-18); Bilirubin, Total 0.3 mg/dL (0.2-1.0); CO2 22.3 mmol/L (21.0-32.0); CREATININE 0.9 mg/dL (0.55-1.02); Calcium 9.7 mg/dL (8.5-10.1); Chloride 106 mmol/L (98-107); Glucose 152 mg/dL (74-106); Sodium 139 mmol/L (136-145); Troponin I < 50 ng/L (<or=60)
[2022-01-20] MEDS: Lactated Ringers 500 ML IV (17:03)
--- NOTE | 2022-01-20 17:09 | NUR.NOTE ---
Pt sent to imaging when EKG ordered. Unable to obtain until she returned from CTA and US.
[2022-01-20] MEDS: Doxycycline Hyclate 100 MG CAP PO (17:44)
== END 2022-01-20 17:54 | disposition home or self-care (01) ==
PROVIDERS: Emergency Provider Student in an Organized Health Care Education/Training Program; PCP Nurse Practitioner Family
DX: J18.9 Pneumonia, unspecified organism (principal); Z86.16 Personal history of COVID-19; R00.0 Tachycardia, unspecified; R07.89 Other chest pain; M79.662 Pain in left lower leg
CPT/HCPCS: 36415; 71275; 80053; 93005; 96360; 99285; 84484; 85025; 93010; 93971; 99284; J3490

== ENCOUNTER 2022-08-08 15:25 | Outpatient (REF) | payer MEDICAID, SELFPAY ==
[2022-08-10 11:09] LABS: COVID-19 RT-PCR UVMMC Result Negative (Negative)
== END 2022-08-08 15:26 | disposition home or self-care (01) ==
LOC: LBN 15:25
PROVIDERS: Visit Provider Nurse Practitioner Family
DX: Z20.822 Contact with and (suspected) exposure to COVID-19 (principal); R50.9 Fever, unspecified
CPT/HCPCS: U0003

== ENCOUNTER 2022-08-30 15:53 | Emergency (ER) | payer MEDICAID, SELFPAY ==
[2022-08-30 16:04] VITALS: BP 131/75; PULSE 86; RESP 20; TEMP 36.6; O2SAT 99
[2022-08-30 16:29] LABS: Bilirubin Negative (Negative); Blood Negative (Negative); Clarity Clear (Clear); Glucose Negative (Negative); Ketones Negative (Negative); Leukocyte Esterase Negative (Negative); Nitrite Negative (Negative); Specific Gravity 1.025 (1.005-1.025); Urobilinogen 0.2 EU/dL (Up TO 0.2)
[2022-08-30] MEDS: Normal Saline 1,000 ML 1000 ML IV (16:54)
[2022-08-30] MEDS: Ketorolac 30 MG/ML VIAL IVP (16:54)
[2022-08-30] MEDS: Ondansetron 4 MG/2 ML VIAL IVP (16:54)
[2022-08-30 16:57] LABS: Abs Immature Grans 0.04 10^3/uL (0.0-0.06); Absolute Basophil Count 0.02 10^3/uL (0.0-0.2); Absolute Lymphocyte Count 1.91 10^3/uL (1.2-3.4); Absolute Monocyte Count 0.52 10^3/uL (0.1-0.8); Absolute Neutrophil Count 4.86 10^3/uL (1.2-6.7); Basophils % 0.3; Eosinophils % 1.3; HCT 35.7 % (36.0-46.0); HGB 11.6 g/dL (11.2-15.7); Immature Grans % 0.5; Lymphocytes % 25.6; MCH 30.4 pg (27.0-33.0); MCHC 32.5 % (32.0-36.0); MCV 94 fL (80-95); MPV 10.7 fL (8.0-11.0); Neutrophils % 65.3; Platelet Count 265 10^3/uL (130-400); RBC 3.82 10^6/uL (3.93-5.22); RDW 12.8 % (11.7-14.6); RDW-SD 43.6 fL; WBC 7.45 10^3/uL (4.4-10.8)
[2022-08-30 17:14] LABS: ALT 46 U/L (14-59); AST 28 U/L (15-37); Albumin 3.5 g/dL (3.4-5.0); Alkaline Phosphatase 64 U/L (46-116); Anion Gap 6.5 mmol/L (3-11); BUN 16 mg/dL (7-18); Bilirubin, Total 0.2 mg/dL (0.2-1.0); CO2 26.5 mmol/L (21.0-32.0); Calcium 8.9 mg/dL (8.5-10.1); Chloride 107 mmol/L (98-107); Estimated GFR 77.24 (mL/min/1.73m2); Glucose 95 mg/dL (74-106); Potassium 4.1 mmol/L (3.5-5.1); Sodium 140 mmol/L (136-145); Total Protein 7.2 g/dL (6.4-8.2)
--- NOTE | 2022-08-30 17:48 | W.ED.GENAD ---
Discharge Plan Disposition Patient Disposition: AGAINST MEDICAL ADVICE Condition: Stable Discharge Details Clinical Impression: Abdominal pain Primary Care Provider: Bernice Nicholson ED Provider: Enio Casper Discharge Data Discharge Date/Time-TO BE ENTERED AT DEPARTURE: 08/30/22 18:00 Medical Decision Making Patient presenting to the emergency department for chief complaint of right flank pain radiating into her abdomen. She states that this is been going on for about a week and was seen on Sunday at [facility] with her being told that everything was unremarkable and that she was discharged. She did have a CT at that time that also she states did not show anything. She states today pain significantly worsened with worsening nausea and that she almost vomited. Physical exam shows tenderness to the posterior paraspinal tissue on the right side, difficult to tell if she also has CVA tenderness due to soft tissue tenderness, patient does have mild tenderness to the right upper and lower quadrant also on the anterior abdomen and exam is otherwise unremarkable. Patient denies any vaginal symptoms but does state some difficulty with urination. I question possible kidney stone with obstruction versus sciatica. We will plan on checking labs and performing renal CT imaging to see if there was a missed renal calculi from previous visit. Pending results will give Zofran, fluids, and Toradol. Reviewed labs and patient has nondiagnostic CBC with no leukocytosis or shift noted, completely normal CMP, urine is also normal not showing any blood, patient is not . Pending availability to send patient to CT she is requesting to leave AGAINST MEDICAL ADVICE due to having to take care of children. Patient does have full medical decision-making capacity and is alert and oriented x4. She did show me the CT results from before and it does note a 3 cm left ovarian cyst, a 1.5 cm right renal cyst, and a questionable right uterine fibroid. Did inform her that she might need further repeat imaging including ultrasound but she states that she must leave the emergency department. Patient signed AMA paperwork and stated she would follow-up with her primary care provider. Did encourage her to continue to use tjft-kna-aodfxgz pain medication and did offer Phenergan due to her stating that Zofran did not work and she refused this at this time. HPI General Mode of arrival: ambulatory. Date/Time Provider Initiated Documentation: 08/30/22 15:54. Limitations to Documentation: no limitations. Information obtained by: RN notes reviewed. History of Present Illness 32 year old F presents to the emergency department with the chief complaint of Right flank and abdominal pain, described as moderate, with intensity rated at 6. Quality is described as aching and sharp, and is localized to the back and abdomen. Patient started experiencing this week(s) (1) and it has been constant. No relieving factors improve symptom(s), No exacerbating factors reported . Patient did receive the following treatments prior to arrival, NSAID Related Data Allergies Allergy/AdvReac Type Severity Reaction Status Date / Time clonidine Allergy Severe Anaphylaxsi Unverified 01/20/22 15:28 s codeine AdvReac Intermediate vomitting Verified 01/20/22 15:28 amitriptyline AdvReac tachycardia Verified 01/20/22 15:28 General Stated Complaint: FlankPain MARK: 3 Review of Systems Constitutional Constitutional: Denies chills, Denies fever(s) and Reports poor appetite Cardiovascular Cardiovascular: Denies chest pain and Denies dyspnea Respiratory Respiratory: Denies cough and Denies dyspnea Gastrointestinal Gastrointestinal: Reports as per HPI, Reports abdominal pain, Denies melena, Denies change in bowel habits, Denies constipation, Denies diarrhea, Reports nausea and Denies vomiting Genitourinary Genitourinary: Denies hematuria, Reports dysuria, Reports flank pain, Denies urinary incontinence, Denies urinary hesitancy and Reports urinary urgency Integumentary/Breasts Skin/Breast: Denies rash PFSH All Active Problems (Updated 08/30/22 @ 17:52 by Enio Casper NP) Krbwq-Uhefougko-Lpkqx (WPW) syndrome (Acute) Ablasion done @ age 16 [facility] [place] Chronic tonsillitis (Acute) Functional neurologic complaint (Acute) Neck pain (Acute) Ptosis, right (Acute) Right-sided face pain (Acute) Depression (Chronic) GERD (gastroesophageal reflux disease) (Chronic) Abdominal pain (Acute) Medical History Status post placement of implantable loop recorder Surgical History H/O cardiac radiofrequency ablation H/O tubal ligation History of section Social History Smoking/Tobacco Use Status: Former Tobacco Use Smoking risk assessment performed?: Yes Alcohol Intake: former Drug use: Never Substance use type: does not use Household members: family Number of 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 Seatbelt use: always Do you feel safe at home: Yes Do you feel safe in your relationship?: Yes Exam Const General: cooperative, comfortable and no acute distress Orientation: alert, awake and oriented x3 Resp Effort & Inspection: normal respiratory effort and able to speak in complete sentences Auscultation: clear to auscultation bilaterally Cardio Rate: regular rate Rhythm: regular rhythm Heart Sounds: S1 normal and S2 normal GI Palpation: soft, no hepatosplenomegaly, not firm, no guarding, no masses, no pulsatile masses, not rigid, no splenomegaly and tender in the RLQ and in the RUQ; not at McBurney's point and Enrique's sign negative Auscultation: normal bowel sounds General: CVA tenderness on the right Back/Spine/Pelvis Back: CVA tenderness Thoracic/Lumbar Spine: paraspinal tenderness, No thoracic spinal tenderness and No lumbar spinal tenderness Neuro General: patient alert, patient awake, patient oriented x3, gait normal and moves all extremities Course Vital Signs Vital signs: Vital Signs Temperature 36.6 C 08/30/22 16:04 Pulse 86 08/30/22 16:04 Respiratory Rate 20 08/30/22 16:04 Blood Pressure 131/75 08/30/22 16:04 Pulse Oximetry 99 08/30/22 16:04 Temperature 36.6 C 08/30/22 16:04 Temperature Source Oral 08/30/22 16:04 Pulse 86 08/30/22 16:04 Respiratory Rate 20 08/30/22 16:04 Respiratory Effort Non-Labored 08/30/22 16:14 Blood Pressure 131/75 08/30/22 16:04 Blood Pressure Position Sitting 08/30/22 16:04 Pulse Oximetry 99 08/30/22 16:04 Oxygen Delivery Method Room Air 08/30/22 16:04 Oxygen Flow Rate 0 08/30/22 16:04 Pain Level 6 08/30/22 16:04 Lab/Test Results Lab/Test Results: Laboratory Tests Range/Units 08/30/22 08/30/22 08/30/22 16:10 16:50 16:50 WBC (4.4-10.8) 10^3/uL 7.45 RBC (3.93-5.22) 10^6/uL 3.82 L Hgb (11.2-15.7) g/dL 11.6 Hct (36.0-46.0) % 35.7 L MCV (80-95) fL 94 MCH (27.0-33.0) pg 30.4 MCHC (32.0-36.0) % 32.5 RDW (11.7-14.6) % 12.8 Plt Count (130-400) 10^3/uL 265 MPV (8.0-11.0) fL 10.7 Immature Gran % 0.5 Neutrophils % 65.3 Lymphocytes % 25.6 Monocytes % 7.0 Eosinophils % 1.3 Basophils % 0.3 Nucleated RBC % (0.0-0.3) % 0.0 Absolute Neutrophils (1.2-6.7) 10^3/uL 4.86 Absolute Lymphocytes (1.2-3.4) 10^3/uL 1.91 Absolute Monocytes (0.1-0.8) 10^3/uL 0.52 Absolute Eosinophils (0.0-0.7) 10^3/uL 0.10 Absolute Basophils (0.0-0.2) 10^3/uL 0.02 Sodium (136-145) mmol/L 140 Potassium (3.5-5.1) mmol/L 4.1 Chloride (98-107) mmol/L 107 Carbon Dioxide (21.0-32.0) mmol/L 26.5 Anion Gap (3-11) mmol/L 6.5 BUN (7-18) mg/dL 16 Creatinine (0.55-1.02) mg/dL 1.0 Est GFR (CKD-EPI 2020) (mL/min/1.73m2) 77.24 Glucose (74-106) mg/dL 95 Calcium (8.5-10.1) mg/dL 8.9 Total Bilirubin (0.2-1.0) mg/dL 0.2 AST (15-37) U/L 28 ALT (14-59) U/L 46 Alkaline Phosphatase (46-116) U/L 64 Total Protein (6.4-8.2) g/dL 7.2 Albumin (3.4-5.0) g/dL 3.5 Urine Color (Yellow) Yellow Urine Clarity (Clear) Clear Urine pH (5-8) 7.0 Ur Specific [place] (1.005-1.025) 1.025 Urine Protein (Negative) mg/dL Negative Urine Ketones (Negative) mg/dL Negative Urine Blood (Negative) Negative Urine Nitrite (Negative) Negative Urine Bilirubin (Negative) Negative Urine Urobilinogen (Up TO 0.2) EU/dL 0.2 Ur Leukocyte Esterase (Negative) Negative Urine Glucose (Negative) mg/dL Negative POC- Test(urine) Negative
== END 2022-08-30 18:00 | disposition left against medical advice (07) ==
PROVIDERS: Emergency Provider Nurse Practitioner Family; PCP Nurse Practitioner Family
DX: R10.11 Right upper quadrant pain (principal); R10.31 Right lower quadrant pain
CPT/HCPCS: 80053; 81025; 96361; 96374; 96375; 99284; 81003; 85025; J1885; J2405

== ENCOUNTER 2023-12-15 13:11 | Outpatient (REF) | payer MEDICAID, SELFPAY | END 2023-12-15 13:12 | disposition home or self-care (01) | LOC: LBN 13:11 | PROVIDERS: PCP Nurse Practitioner Family; Visit Provider Physician Assistant Medical | DX: J02.9 Acute pharyngitis, unspecified (principal) | CPT/HCPCS: 87070 ==